=== PATIENT | male | born 1955 | race Caucasian/White ===

== ENCOUNTER 2016-08-03 14:06 | Inpatient (IN) | payer OTHER ==
[~2016-08-03] VITALS: Ht 172.7 cm; Wt 85.8 kg
[~2016-08-03 14:06] MED LIST: ALBU2.5V5 NEB; ASPI81TA9 PO; ATOR20TA58 PO; BUDE10.2 IH; CARV20CP PO; CITA20TA9 PO; FURO-68 PO; FURO-69 PO; MELO-150 PO; METF10002 PO; METF500T4 PO; METO2.5T PO; METO25TA4 PO; POTA20TA82 PO; PRED-220 PO; PROAIR HFA8.5 GM IH; TAMS0.4C97 PO; TEST200V3 IM; TIOT18CA IH; TRAZ50TA15 PO
[2016-08-03] MEDS ORDERED: FUROSEMIDE 40 MG/4 ML VIAL IVP ONE (15:15)
[2016-08-03 15:18] LABS: BASO # 0.1 x10^3/uL (0.0-0.2); BASO % 1 % (0-3); EOS % 3 % (0-3); HEMATOCRIT 49.9 % (39.0-53.0); HEMOGLOBIN 16.5 g/dL (13.0-17.5); LYMPH # 1.2 x10^3/uL (1.0-4.8); LYMPH % 13 % (24-48); MEAN CORPUSCULAR HEMOGLOBIN 32 pg (25-35); MEAN CORPUSCULAR HGB CONC 33 g/dL (31-37); MEAN CORPUSCULAR VOLUME 96 fL (79-100); MONO % 7 % (0-9); NEUT % 76 % (31-73); PLATELET COUNT 248 x10^3/uL (140-400); RED BLOOD COUNT 5.19 x10^6/uL (4.30-5.70); RED CELL DISTRIBUTION WIDTH 15.5 % (11.5-14.5); WHITE BLOOD COUNT 9.3 x10^3/uL (4.0-11.0)
--- NOTE | 2016-08-03 15:35 | EKG ---
[facility] [address] [place] [address] Test Date: 2016-08-03 Test Time: 15:22:08 Pat Name: SARAH HERNÁNDEZ Department: Room: Gender: M Tile Mason: : 1955 Requested By: JUAN MERRILL Order Number: [id number] Reading MD: Radha Pitts Measurements Intervals [place] Rate: 106 P: -26 OK: 116 QRS: -19 QRSD: 92 T: 161 QT: 364 QTc: 485 Interpretive Statements SINUS TACHYCARDIA LEFT ATRIAL ABNORMALITY LEFTWARD AXIS LOW LIMB LEAD VOLTAGE T ABNORMALITY IN HIGH LATERAL LEADS Electronically Signed On 08-07-2016 20:19:40 HIGH DENSITY [employer]AL[employer] OPERATOR by Radha Pitts
[2016-08-03 15:41] LABS: CALCIUM 9.5 mg/dL (8.5-10.1); CREATININE 1.4 mg/dL (0.7-1.3); GFR 51.4; POTASSIUM 4.5 mmol/L (3.5-5.1)
[2016-08-03 15:45] LABS: ALBUMIN 3.7 g/dL (3.4-5.0); DIRECT BILIRUBIN 0.2 mg/dL (0.0-0.2); TOTAL BILIRUBIN 0.9 mg/dL (0.2-1.0); TOTAL PROTEIN 7.1 g/dL (6.4-8.2)
--- NOTE | 2016-08-03 15:52 | RAD ---
Portable chest, 08/03/2016: History: Chest pain Comparison is made to a study from 04/07/2016. A left-sided transvenous pacemaker remains in place with 2 leads extending in the right heart. The heart is moderately enlarged. The pulmonary vascularity is within normal limits. No pulmonary infiltrates are seen. There is no evidence of pleural fluid. IMPRESSION: 1. Cardiomegaly. 2. No acute abnormality is detected.
[2016-08-03] MEDS ORDERED: MORPHINE SULFATE 2 MG/ML DISP.SYRIN. IV PRN (16:15)
[2016-08-03] MEDS ORDERED: ONDANSETRON PF 4 MG/2 ML VIAL. IV PRN (16:15)
[2016-08-03] MEDS ORDERED: ALBUTEROL SULFATE 2.5 MG/3 ML NEBU. NEB PRN (17:00)
[2016-08-03] MEDS ORDERED: IPRATRPIUM/ALBUTEROL 0.5/2.5MG 3 ML NEBU. NEB ONE (17:00)
--- NOTE | 2016-08-03 18:12 | PHYS DOC ---
Past Medical History Past Medical History: Bipolar, CHF, COPD, Diabetes-Type II, Hypertension Additional Past Medical Histor: emphysema Past Surgical History: Other Additional Past Surgical Histo: umbilical hernia, sinus surgery, hemorrhoid surgery, pacemaker/defib Alcohol Use: Heavy Additional Information: states, "I've been better for the last two weeks." Drug Use: None Adult General Chief Complaint Chief Complaint: LOWER EXTREMITY SWELLING HPI HPI 61-year-old male presenting to the emergency department with worsening shortness of breath bilateral lower extremity swelling over the past 3 weeks. He denies chest pain abdominal pain. He shortness of breath is worse with exertion, improved with rest. It is nonradiating. Moderate in intensity. 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 Review of systems is negative for chest pain abdominal pain nausea vomiting fevers or chills. All other review of systems is negative unless otherwise noted in history of present illness. Review of Systems Review of Systems SEE ABOVE. Current Medications Current Medications Current Medications Medications (Trade) Dose Ordered Sig/Syeda Start Time Stop Time Status Last Admin Dose Admin Furosemide (Lasix) 40 mg 1X ONCE 08/03/16 15:15 08/03/16 15:16 DC 08/03/16 15:17 40 MG Allergies Allergies Allergies Coded Allergies Type Severity Reaction Last Updated Verified No Known Drug Allergies 08/03/16 No Physical Exam Physical Exam GENERAL: no acute distress, non-toxic appearance. HENT: Normocephalic, atraumatic, bilateral external ears normal, oropharynx moist, no oral exudates, nose normal. Eyes: PERRLA, EOMI, conjunctiva normal, no discharge. Neck: Normal range of motion, no tenderness, supple, no stridor. Cardiovascular:Heart rate regular rhythm, no murmur Lungs & Thorax: Bilateral breath sounds clear to auscultation [] Abdomen: Bowel sounds normal, soft, no tenderness, no masses, no pulsatile masses. Skin: Warm, dry, no erythema, no rash. [] Back: No tenderness, no CVA tenderness. Extremities: No tenderness, no cyanosis, no clubbing, ROM intact, 3+ edema. Neurologic: Alert and oriented X 3, normal motor function, normal sensory function, no focal deficits noted. [] Psychologic: Affect normal, judgement normal, mood normal. [] Current Patient Data Vital Signs Vital Signs Date Time Temp Pulse Resp B/P Pulse Ox O2 Delivery O2 Flow Rate FiO2 08/03/16 15:04 102 20 123/78 97 Room Air 08/03/16 14:20 98.2 98.2 SEE ABOVE. Lab Values Laboratory Tests Test 08/03/16 14:30 White Blood Count 9.3x10^3/uL (4.0-11.0) Red Blood Count 5.19x10^6/uL (4.30-5.70) Hemoglobin 16.5g/dL (13.0-17.5) Hematocrit 49.9% (39.0-53.0) Mean Corpuscular Volume 96fL (79-100) Mean Corpuscular Hemoglobin 32pg (25-35) Mean Corpuscular Hemoglobin Concent 33g/dL (31-37) Red Cell Distribution Width 15.5% (11.5-14.5) H Platelet Count 248x10^3/uL (140-400) Neutrophils (%) (Auto) 76% (31-73) H Lymphocytes (%) (Auto) 13% (24-48) L Monocytes (%) (Auto) 7% (0-9) Eosinophils (%) (Auto) 3% (0-3) Basophils (%) (Auto) 1% (0-3) Neutrophils # (Auto) 7.1x10^3uL (1.8-7.7) Lymphocytes # (Auto) 1.2x10^3/uL (1.0-4.8) Monocytes # (Auto) 0.6x10^3/uL (0.0-1.1) Eosinophils # (Auto) 0.3x10^3/uL (0.0-0.7) Basophils # (Auto) 0.1x10^3/uL (0.0-0.2) Sodium Level 142mmol/L (136-145) Potassium Level 4.5mmol/L (3.5-5.1) Chloride Level 104mmol/L (98-107) Carbon Dioxide Level 25mmol/L (21-32) Anion Gap 13 (6-14) Blood Urea Nitrogen 25mg/dL (8-26) Creatinine 1.4mg/dL (0.7-1.3) H Estimated GFR (Cockcroft-Gault) 51.4 Glucose Level 129mg/dL (70-99) H Calcium Level 9.5mg/dL (8.5-10.1) Total Bilirubin 0.9mg/dL (0.2-1.0) Direct Bilirubin 0.2mg/dL (0.0-0.2) Aspartate Amino Transferase (AST) 29U/L (15-37) Alanine Aminotransferase (ALT) 27U/L (16-63) Alkaline Phosphatase 68U/L (46-116) Troponin I Quantitative 0.080ng/mL (0.000-0.055) ME-Lps-D-Type Natriuretic Peptide 3401pg/mL (0-124) H Total Protein 7.1g/dL (6.4-8.2) Albumin 3.7g/dL (3.4-5.0) Lipase 195U/L (73-393) Laboratory Tests 08/03/16 14:30 Laboratory Tests 08/03/16 14:30 EKG EKG [] EKG shows sinus rhythm with a tachycardic rate. [place] is leftward. Intervals are within normal limits. ST segments are congruent. Radiology/Procedures Radiology/Procedures [] Course & Med Decision Making Course & Med Decision Making Pertinent Labs and Imaging studies reviewed. (See chart for details) [] 61-year-old male presenting to the emergency department today with dyspnea and bilateral pedal edema. On examination the patient's vital signs showed he was afebrile. Mildly tachycardic. Physical exam showed edema with mild crackles in the bases the lungs. EKG unremarkable. Chest x-ray unremarkable. Blood work obtained which showed normal CBC. Chemistry panel shows mild increase in creatinine. ProBNP elevated along with an elevated troponin. Patient was given aspirin and Lasix in the emergency department and then admitted to our hospital for further evaluation workup and care. Cardiology consultation placed. Dragon Disclaimer Dragon Disclaimer This electronic medical record was generated, in whole or in part, using a voice recognition dictation system. Departure Departure Impression: Primary Impression: CHF (congestive heart failure) Additional Impression: Edema Disposition: ADMITTED INPATIENT Admitting Physician: Lien Palacios Condition: STABLE Referrals: LIEN PALACIOS MD (PCP) Problem Qualifiers JUAN MERRILL MD Aug 03, 2016 18:12
[2016-08-03 18:38] VITALS: BP 72/56
[2016-08-03 19:00] VITALS: BP 96/67
--- NOTE | 2016-08-03 19:35 | ACF ---
Admission Forms Criteria HEART FAILURE: COMMON COMPLICATIONS Clinical Indications for Inpatient Care (Place 'X' for any and all applicable criteria): Ongoing inpatient care may be indicated for heart failure with ANY ONE of the following (1)(2)(3)(4)(5): [ ]I. Ongoing need for care for primary condition requiring frequent therapy adjustments because of changes in cardiac function (eg, drug dosage changes for drugs that are renally metabolized) [ ]II. New-onset heart failure [ ]III. Heart failure with decreased urine output not responsive to attempts to optimize volume status [ ]IV. Acute cardiac ischemia causing or associated with failure [X]V. Complications of heart failure, including ANY ONE of the following: [ ]a) Pericardial effusion [ ]b) Symptomatic pleural effusion [ ]c) O2 saturation <90% or PO2 < 60 mm Hg (8.0 kPa) on room air or require baseline supplemental O2 [ ]d) Tachypnea [X]e) Dyspnea [ ]f) Syncope [ ]g) Change in mental status [ ]h) Acute renal insufficiency that is severe (reduction of more than 50% in estimated glomerular filtration rate from baseline) or progressive reduction of more than 25% in estimated glomerular filtration rate from baseline, with creatinine continuing to rise) [ ]i) Hemodynamic instability [ ]j) Anasarca [ ]k) Clinically significant metabolic abnormalities due to heart failure (eg, new-onset metabolic acidosis) Extended stay beyond goal length of stay for primary condition may be needed until ALL of the following are present(1)(3): [ ]a) Stable and effective diuretic regimen established (or patient on stable dialysis regimen if in chronic renal failure) [ ]b) Breathing comfortably at rest [ ]c) Saturation of arterial oxygen greater than 90% or at acceptable baseline [ ]d) Pulmonary edema absent or improved [ ]e) Hemodynamic stability [ ]f) Volume status acceptable on oral medication [ ]g) Peripheral or sacral edema absent or improved [ ]h) Renal function stable and manageable at a lower level of care [ ]i) Complications (eg, pleural effusion) resolved or manageable at a lower level of care [ ]j) Patient or caregiver has received written discharge instructions or educational material addressing activity level, diet, discharge medications, follow-up appointment, weight monitoring, and what to do if symptoms worsen The original [facility] content created by [employer] has been revised. The portions of the content which have been revised are identified through the use of italic text or in bold, and [facility] has neither reviewed nor approved the modified material.All other unmodified content is copyright [facility]. Please see references footnoted in the original [facility] edition 2016 Admission Criteria Met?: Yes DARCIE PYLE Aug 03, 2016 19:35
[2016-08-03 23:00] VITALS: BP 105/71
[2016-08-04 03:00] VITALS: BP 105/69
[2016-08-04 04:13] LABS: BASO # 0.1 x10^3/uL (0.0-0.2); BASO % 1 % (0-3); EOS % 5 % (0-3); HEMATOCRIT 47.5 % (39.0-53.0); HEMOGLOBIN 15.1 g/dL (13.0-17.5); LYMPH # 1.4 x10^3/uL (1.0-4.8); LYMPH % 18 % (24-48); MEAN CORPUSCULAR HEMOGLOBIN 32 pg (25-35); MEAN CORPUSCULAR HGB CONC 32 g/dL (31-37); MEAN CORPUSCULAR VOLUME 99 fL (79-100); MONO % 10 % (0-9); NEUT % 66 % (31-73); PLATELET COUNT 219 x10^3/uL (140-400); RED BLOOD COUNT 4.79 x10^6/uL (4.30-5.70); RED CELL DISTRIBUTION WIDTH 16.2 % (11.5-14.5); WHITE BLOOD COUNT 7.9 x10^3/uL (4.0-11.0)
[2016-08-04 04:34] LABS: CALCIUM 9.4 mg/dL (8.5-10.1); CREATININE 1.4 mg/dL (0.7-1.3); GFR 51.4; POTASSIUM 4.4 mmol/L (3.5-5.1)
[2016-08-04 07:00] VITALS: BP 102/74
[2016-08-04] MEDS ORDERED: METOPROLOL TART IMMED RELEASE 25 MG TABLET PO SCH (09:15)
[2016-08-04] MEDS ORDERED: FUROSEMIDE 40 MG TABLET PO SCH (09:15)
--- NOTE | 2016-08-04 09:15 | PDOC ---
PROGRESS NOTES Subjective Subjective Patient reports swelling in his legs seems a little better than yesterday. Denies any CP or SOA. Objective Objective Vital Signs Date Time Temp Pulse Resp B/P Pulse Ox O2 Delivery O2 Flow Rate FiO2 08/04/16 07:00 97.6 105 20 102/74 96 Room Air 97.6 08/04/16 02:30 2.0 Intake and Output 08/04/16 07:00 Intake Total 600 ml Output Total 2975 ml Balance -2375 ml Intake Oral 600 ml Output Urine Total 2975 ml # Voids 3 Physical Exam Abdomen: Normal bowel sounds, Soft, No tenderness Heart: Regular rate Extremities: Other (2+ pitting edema bilateral LE's, no erythema) General: Alert, Oriented X3, No acute distress Lungs: Other (BS moderately decreased throughout, no wheezes, no cough during exam) Assessment Assessment Problems Medical Problems: (1) CHF (congestive heart failure) Status: Acute (2) Edema Status: Acute Plan Plan of Care 1. AE CHF with LE edema - some diuresis on chart since admission. Cardiology consult pending. Continue Lasix daily, wear SANCHEZ hose and elevate legs. 2. COPD - appears stable. CXR without infiltrate. Not hypoxic on RA. Continue inhalers. Patient still smoking, declines nicotine patch. 3. DM2 - continue Metformin. 4. HTN - continue home meds. Comment Review of Relevant I have reviewed the following items jung (where applicable) has been applied. Labs Laboratory Tests Test 08/03/16 14:30 08/03/16 21:55 08/04/16 03:20 White Blood Count 9.3x10^3/uL (4.0-11.0) 7.9x10^3/uL (4.0-11.0) Red Blood Count 5.19x10^6/uL (4.30-5.70) 4.79x10^6/uL (4.30-5.70) Hemoglobin 16.5g/dL (13.0-17.5) 15.1g/dL (13.0-17.5) Hematocrit 49.9% (39.0-53.0) 47.5% (39.0-53.0) Mean Corpuscular Volume 96fL (79-100) 99fL (79-100) Mean Corpuscular Hemoglobin 32pg (25-35) 32pg (25-35) Mean Corpuscular Hemoglobin Concent 33g/dL (31-37) 32g/dL (31-37) Red Cell Distribution Width 15.5% (11.5-14.5) 16.2% (11.5-14.5) Platelet Count 248x10^3/uL (140-400) 219x10^3/uL (140-400) Neutrophils (%) (Auto) 76% (31-73) 66% (31-73) Lymphocytes (%) (Auto) 13% (24-48) 18% (24-48) Monocytes (%) (Auto) 7% (0-9) 10% (0-9) Eosinophils (%) (Auto) 3% (0-3) 5% (0-3) Basophils (%) (Auto) 1% (0-3) 1% (0-3) Neutrophils # (Auto) 7.1x10^3uL (1.8-7.7) 5.2x10^3uL (1.8-7.7) Lymphocytes # (Auto) 1.2x10^3/uL (1.0-4.8) 1.4x10^3/uL (1.0-4.8) Monocytes # (Auto) 0.6x10^3/uL (0.0-1.1) 0.8x10^3/uL (0.0-1.1) Eosinophils # (Auto) 0.3x10^3/uL (0.0-0.7) 0.4x10^3/uL (0.0-0.7) Basophils # (Auto) 0.1x10^3/uL (0.0-0.2) 0.1x10^3/uL (0.0-0.2) Sodium Level 142mmol/L (136-145) 146mmol/L (136-145) Potassium Level 4.5mmol/L (3.5-5.1) 4.4mmol/L (3.5-5.1) Chloride Level 104mmol/L (98-107) 108mmol/L (98-107) Carbon Dioxide Level 25mmol/L (21-32) 28mmol/L (21-32) Anion Gap 13 (6-14) 10 (6-14) Blood Urea Nitrogen 25mg/dL (8-26) 27mg/dL (8-26) Creatinine 1.4mg/dL (0.7-1.3) 1.4mg/dL (0.7-1.3) Estimated GFR (Cockcroft-Gault) 51.4 51.4 Glucose Level 129mg/dL (70-99) 103mg/dL (70-99) Calcium Level 9.5mg/dL (8.5-10.1) 9.4mg/dL (8.5-10.1) Total Bilirubin 0.9mg/dL (0.2-1.0) Direct Bilirubin 0.2mg/dL (0.0-0.2) Aspartate Amino Transf (AST/SGOT) 29U/L (15-37) Alanine Aminotransferase (ALT/SGPT) 27U/L (16-63) Alkaline Phosphatase 68U/L (46-116) Troponin I Quantitative 0.080ng/mL (0.000-0.055) 0.074ng/mL (0.000-0.055) 0.082ng/mL (0.000-0.055) MN-Gbs-D-Type Natriuretic Peptide 3401pg/mL (0-124) Total Protein 7.1g/dL (6.4-8.2) Albumin 3.7g/dL (3.4-5.0) Lipase 195U/L (73-393) Laboratory Tests Test 08/03/16 14:30 08/03/16 21:55 08/04/16 03:20 White Blood Count 9.3x10^3/uL (4.0-11.0) 7.9x10^3/uL (4.0-11.0) Red Blood Count 5.19x10^6/uL (4.30-5.70) 4.79x10^6/uL (4.30-5.70) Hemoglobin 16.5g/dL (13.0-17.5) 15.1g/dL (13.0-17.5) Hematocrit 49.9% (39.0-53.0) 47.5% (39.0-53.0) Mean Corpuscular Volume 96fL (79-100) 99fL (79-100) Mean Corpuscular Hemoglobin 32pg (25-35) 32pg (25-35) Mean Corpuscular Hemoglobin Concent 33g/dL (31-37) 32g/dL (31-37) Red Cell Distribution Width 15.5% (11.5-14.5) 16.2% (11.5-14.5) Platelet Count 248x10^3/uL (140-400) 219x10^3/uL (140-400) Neutrophils (%) (Auto) 76% (31-73) 66% (31-73) Lymphocytes (%) (Auto) 13% (24-48) 18% (24-48) Monocytes (%) (Auto) 7% (0-9) 10% (0-9) Eosinophils (%) (Auto) 3% (0-3) 5% (0-3) Basophils (%) (Auto) 1% (0-3) 1% (0-3) Neutrophils # (Auto) 7.1x10^3uL (1.8-7.7) 5.2x10^3uL (1.8-7.7) Lymphocytes # (Auto) 1.2x10^3/uL (1.0-4.8) 1.4x10^3/uL (1.0-4.8) Monocytes # (Auto) 0.6x10^3/uL (0.0-1.1) 0.8x10^3/uL (0.0-1.1) Eosinophils # (Auto) 0.3x10^3/uL (0.0-0.7) 0.4x10^3/uL (0.0-0.7) Basophils # (Auto) 0.1x10^3/uL (0.0-0.2) 0.1x10^3/uL (0.0-0.2) Sodium Level 142mmol/L (136-145) 146mmol/L (136-145) Potassium Level 4.5mmol/L (3.5-5.1) 4.4mmol/L (3.5-5.1) Chloride Level 104mmol/L (98-107) 108mmol/L (98-107) Carbon Dioxide Level 25mmol/L (21-32) 28mmol/L (21-32) Anion Gap 13 (6-14) 10 (6-14) Blood Urea Nitrogen 25mg/dL (8-26) 27mg/dL (8-26) Creatinine 1.4mg/dL (0.7-1.3) 1.4mg/dL (0.7-1.3) Estimated GFR (Cockcroft-Gault) 51.4 51.4 Glucose Level 129mg/dL (70-99) 103mg/dL (70-99) Calcium Level 9.5mg/dL (8.5-10.1) 9.4mg/dL (8.5-10.1) Total Bilirubin 0.9mg/dL (0.2-1.0) Direct Bilirubin 0.2mg/dL (0.0-0.2) Aspartate Amino Transf (AST/SGOT) 29U/L (15-37) Alanine Aminotransferase (ALT/SGPT) 27U/L (16-63) Alkaline Phosphatase 68U/L (46-116) Troponin I Quantitative 0.080ng/mL (0.000-0.055) 0.074ng/mL (0.000-0.055) 0.082ng/mL (0.000-0.055) KC-Gon-I-Type Natriuretic Peptide 3401pg/mL (0-124) Total Protein 7.1g/dL (6.4-8.2) Albumin 3.7g/dL (3.4-5.0) Lipase 195U/L (73-393) Medications Current Medications Furosemide (Lasix) 40 mg 1X ONCE IVP Last administered on 08/03/16 15:17; Start 08/03/16 at 15:15; Stop 08/03/16 at 15:16; Status DC Ondansetron HCl (Zofran) 4 mg PRN Q8HRS PRN IV NAUSEA/VOMITING; Start 08/03/16 at 16:15; Stop 08/04/16 at 16:14 Morphine Sulfate 2 mg PRN Q2HR PRN IV PAIN Last administered on 08/04/16 02:01 ; Start 08/03/16 at 16:15; Stop 08/04/16 at 16:14 Albuterol/ Ipratropium (Duoneb) 3 ml 1X ONCE NEB Last administered on 17:00; Start 08/03/16 at 17:00; Stop 08/03/16 at 17:01; Status DC Albuterol Sulfate (Ventolin Neb Soln) 2.5 mg PRN QID PRN NEB SHORTNESS OF BREATH Last administered on 08/03/16 19:45; Start 08/03/16 at 17:00 Active Scripts Active Flomax (Tamsulosin Hcl) 0.4 Mg Cap.er.24h 1 Cap PO HS Prednisone 10 Mg Tablet 10 Mg PO UD 4 for 2 days then 3 for 2 days then 2 for 2 days then 1 for 2 days,OFF Metolazone 2.5 Mg Tablet 2.5 Mg PO DAILY Potassium Chloride 20 Meq Tablet.er 10 Meq PO DAILY Reported Metoprolol Tartrate 25 Mg Tablet 1 Tab PO BID Proair Hfa Inhaler (Albuterol Sulfate) 8.5 Gm Hfa.aer.ad 2 Puff IH PRN Q2HR PRN Albuterol Sulfate Neb Soln (Albuterol Sulfate) 2.5 Mg/3 Ml Vial.neb 1 Vial NEB PRN Q4HRS Symbicort 160-4.5 Mcg Inhaler (Budesonide/Formoterol Fumarate) 10.2 Gm Hfa.aer.ad 2 Puff IH BID Atorvastatin Calcium 20 Mg Tablet 20 Mg PO DAILY Testosterone Cypionate 200 Mg/1 Ml Vial 200 Mg IM Q2WKS Metformin Hcl 500 Mg Tablet 500 Mg PO BIDWMEALS Spiriva (Tiotropium [place]) 18 Mcg Cap.w.dev 2 Inh IH DAILY05 Aspirin Ec (Aspirin) 81 Mg Tablet.dr 81 Mg PO DAILY Lasix (Furosemide) 40 Mg Tablet Unknown Dose PO DAILY Celexa (Citalopram Hydrobromide) 20 Mg Tablet Unknown Dose PO DAILY Trazodone Hcl 50 Mg Tablet Unknown Dose PO DAILY Vitals/I & O Vital Sign - Last 24 Hours 08/03/16 08/03/16 08/03/16 08/03/16 14:20 15:04 16:04 17:04 Temp 98.2 98.2 Pulse 115 102 108 106 Resp 22 20 20 20 B/P 129/79 123/78 122/82 95/54 Pulse Ox 97 97 96 94 O2 Delivery Room Air Room Air Room Air Room Air 08/03/16 08/03/16 08/03/16 08/03/16 17:14 17:50 18:38 19:00 Temp 98.3 97.5 98.3 97.5 Pulse 104 109 106 Resp 20 B/P 119/73 72/56 96/67 Pulse Ox 95 96 94 96 O2 Delivery Room Air Room Air Room Air Room Air 08/03/16 08/03/16 08/03/16 08/04/16 19:44 21:05 23:00 02:01 Temp 97.5 97.5 Pulse 109 Resp 20 B/P 105/71 Pulse Ox 96 92 92 O2 Delivery Room Air Nasal Cannula Nasal Cannula Nasal Cannula O2 Flow Rate 2.0 2.0 2.0 08/04/16 08/04/16 08/04/16 02:30 03:00 07:00 Temp 97.5 97.6 97.5 97.6 Pulse 107 105 Resp 20 B/P 105/69 102/74 Pulse Ox 92 93 96 O2 Delivery Nasal Cannula Room Air Room Air O2 Flow Rate 2.0 Intake and Output 08/03/16 08/03/16 08/04/16 15:00 23:00 07:00 Intake Total 600 ml Output Total 2025 ml 950 ml Balance -1425 ml -950 ml MOOKIE SAGE MD Aug 04, 2016 09:15
--- NOTE | 2016-08-04 09:18 | PDOC2 ---
CARDIAC CONSULT DATE OF CONSULT Date of Consult DATE: 08/04/16 TIME: 09:12 REASON FOR CONSULT Reason for Consult: elevated BNP, edema, SOA REFERRING PHYSICIAN Referring Physician: Dr. Carmelo Malave SOURCE Source: Chart review, Patient HISTORY OF PRESENT ILLNESS HISTORY OF PRESENT ILLNESS 61 year old male with progressive dyspnea and LE edema over the last 3 weeks. He has possibly gained 10 - 11 # recently. Reports he cut out all "salt" and is "only eating rabbit food." Review of office notes indicate furosemide was increased to 80 mg daily 06/2016, however, it recently determined on 07/29/2016 he had remained on a 60 mg dose. He was advised at that time to increase to 80 mg daily. Denies a change in symptoms with increase in furosemide. NT-proBNP was 3401 with a CR of 1.4 in the ER. No acute changes in EKG, though poor baseline. Was treated with IV furosemide 40 mg X 1 in ER. Reason for Visit: acute on chronic systolic CHF PAST MEDICAL HISTORY Cardiovascular: CAD (mild non-obstructive disease on cath 04/2014), CHF ( chronic systolic), HTN, Hyperlipidemia, Other (non-ischemic cardiomyopathy) Pulmonary: COPD (with chronic oxygen use), Other (COMFORT with CPAP) Psych: Bipolar Musculoskeletal: Osteoarthritis ENT: Allergic Rhinitis Renal/: Chronic renal insuff Endocrine: Diabetes (type II) Dermatology: Melanoma PAST SURGICAL HISTORY Past Surgical History: Pacemaker ([employer] ICD; excision of melanoma), Hernia Repair (umbilical ) FAMILY HISTORY Family History: Family History Unknown SOCIAL HISTORY Smoke: <1 pack per day (3-4 cigarettes/day; previously 2 ppd ) ALCOHOL: heavy (states he quit 2 weeks ago) Lives: with Family CURRENT MEDICATIONS CURRENT MEDICATIONS Current Medications Medications (Trade) Dose Ordered Sig/Syeda Route PRN Reason Start Time Stop Time Status Last Admin Dose Admin Furosemide (Lasix) 40 mg 1X ONCE IVP 08/03/16 15:15 08/03/16 15:16 DC 08/03/16 15:17 Morphine Sulfate 2 mg PRN Q2HR PRN IV PAIN 08/03/16 16:15 08/04/16 16:14 08/04/16 02:01 Albuterol/ Ipratropium (Duoneb) 3 ml 1X ONCE NEB 08/03/16 17:00 08/03/16 17:01 DC 08/03/16 17:00 Albuterol Sulfate (Ventolin Neb Soln) 2.5 mg PRN QID PRN NEB SHORTNESS OF BREATH 08/03/16 17:00 08/03/16 19:45 ALLERGIES ALLERGIES: Coded Allergies: No Known Drug Allergies (Unverified , 08/03/16) ROS General: YES: Fatigue, Malaise PSYCHOLOGICAL ROS: No: Anxiety, Behavioral Disorder, Concentration difficultie , Decreased libido, Depression, Disorientation, Hallucinations, Hostility, Irritablity, Memory difficulties, Mood Swings, Obsessive thoughts, Other, Physical abuse, Sexual abuse, Sleep disturbances, Suicidal ideation Eyes: No Blurry vision, No Decreased vision, No Double vision, No Dry eyes, No Excessive tearing, No Eye Pain, No Itchy Eyes, No Loss of vision, No Other, No Photophobia, No Scotomata, No Uses contacts, No Uses glasses HEENT: No: Epistaxis, Heacaches, Hearing change, Nasal congestion, Nasal discharge, Oral lesions, Other, Sinus pain, Sneezing, Snoring, Sore Throat, Tinnitus, Vertigo, Visual Changes, Vocal changes ALLERGY AND IMMUNOLOGY: No: Hives, Insect Bite Sensitivity, Itchy/Watery Eyes, Nasal Congestion, Other, Post Nasal Drip, Seasonal Allergies Hematological and Lymphatic: No: Bleeding Problems, Blood Clots, Blood Transfusions, Brusing, Night Sweats, Other, Pallor, Swollen Lymph Nodes ENDOCRINE: No: Breast Changes, Galactorrhea, Hair Pattern Changes, Hot Flashes , Malaise/lethargy, Mood Swings, Other, Palpitations, Polydipsia/polyuria, Skin Changes, Temperature Intolerance, Unexpected Weight Changes Respiratory: YES: Cough, SOB with excertion, Shortness of breath Cardiovascular: yes Edema, yes Orthopnea, yes Paroxysmal Noc. Dyspnea, No Chest Pain, No Lt Headedness, No Other, No Palpitations Gastrointestinal: No Abdominal Pain, No Constipation, No Diarrhea, No Hematochezia, No Melena, No Nausea, No Other, No Vomiting Genitourinary: No Discharge, No Dysuria, No Flank Pain, No Frequency, No Hematuria, No Incontinence, No Other, No Pain, No Retention, No Urgency Musculoskeletal: Yes Joint Pain (left hip) Neurological: No Behavorial Changes, No Bowel/Bladder ControlChng, No Confusion , No Dizziness, No Gait Disturbance, No Headaches, No Impaired Coord/balance, No Memory Loss, No Numbness/Tingling, No Other, No Seizures, No Speech Problems , No Tremors, No Visual Changes, No Weakness Skin: No Acne, No Dry Skin, No Eczema, No Hair Changes, No Lumps, No Mole Changes, No Mottling, No Nail Changes, No Other, No Pruritus, No Rash, No Skin Lesion Changes PHYSICAL EXAM General: Alert, Oriented X3, No acute distress HEENT: Atraumatic, PERRLA Lungs: Other (posterior crackles about [address]) Heart: Regular rate, Normal S1, Normal S2, Other (left pectoral ICD; tele SR with NSVT of 5 - 6 beats) Abdomen: Normal bowel sounds, Soft Extremities: Other (2-3+ bilateral lower extremity edema) Skin: No rashes Neuro: Normal speech Psych/Mental Status: Mental status NL, Mood NL MUSCULOSKELETAL: No deformity VITALS VITALS Vital Signs Date Time Temp Pulse Resp B/P Pulse Ox O2 Delivery O2 Flow Rate FiO2 08/04/16 07:00 97.6 105 20 102/74 96 Room Air 97.6 08/04/16 02:30 2.0 LABS Lab: Laboratory Tests Test 08/03/16 14:30 08/03/16 21:55 08/04/16 03:20 White Blood Count 9.3x10^3/uL (4.0-11.0) 7.9x10^3/uL (4.0-11.0) Red Blood Count 5.19x10^6/uL (4.30-5.70) 4.79x10^6/uL (4.30-5.70) Hemoglobin 16.5g/dL (13.0-17.5) 15.1g/dL (13.0-17.5) Hematocrit 49.9% (39.0-53.0) 47.5% (39.0-53.0) Mean Corpuscular Volume 96fL (79-100) 99fL (79-100) Mean Corpuscular Hemoglobin 32pg (25-35) 32pg (25-35) Mean Corpuscular Hemoglobin Concent 33g/dL (31-37) 32g/dL (31-37) Red Cell Distribution Width 15.5% (11.5-14.5) 16.2% (11.5-14.5) Platelet Count 248x10^3/uL (140-400) 219x10^3/uL (140-400) Neutrophils (%) (Auto) 76% (31-73) 66% (31-73) Lymphocytes (%) (Auto) 13% (24-48) 18% (24-48) Monocytes (%) (Auto) 7% (0-9) 10% (0-9) Eosinophils (%) (Auto) 3% (0-3) 5% (0-3) Basophils (%) (Auto) 1% (0-3) 1% (0-3) Neutrophils # (Auto) 7.1x10^3uL (1.8-7.7) 5.2x10^3uL (1.8-7.7) Lymphocytes # (Auto) 1.2x10^3/uL (1.0-4.8) 1.4x10^3/uL (1.0-4.8) Monocytes # (Auto) 0.6x10^3/uL (0.0-1.1) 0.8x10^3/uL (0.0-1.1) Eosinophils # (Auto) 0.3x10^3/uL (0.0-0.7) 0.4x10^3/uL (0.0-0.7) Basophils # (Auto) 0.1x10^3/uL (0.0-0.2) 0.1x10^3/uL (0.0-0.2) Sodium Level 142mmol/L (136-145) 146mmol/L (136-145) Potassium Level 4.5mmol/L (3.5-5.1) 4.4mmol/L (3.5-5.1) Chloride Level 104mmol/L (98-107) 108mmol/L (98-107) Carbon Dioxide Level 25mmol/L (21-32) 28mmol/L (21-32) Anion Gap 13 (6-14) 10 (6-14) Blood Urea Nitrogen 25mg/dL (8-26) 27mg/dL (8-26) Creatinine 1.4mg/dL (0.7-1.3) 1.4mg/dL (0.7-1.3) Estimated GFR (Cockcroft-Gault) 51.4 51.4 Glucose Level 129mg/dL (70-99) 103mg/dL (70-99) Calcium Level 9.5mg/dL (8.5-10.1) 9.4mg/dL (8.5-10.1) Total Bilirubin 0.9mg/dL (0.2-1.0) Direct Bilirubin 0.2mg/dL (0.0-0.2) Aspartate Amino Transf (AST/SGOT) 29U/L (15-37) Alanine Aminotransferase (ALT/SGPT) 27U/L (16-63) Alkaline Phosphatase 68U/L (46-116) Troponin I Quantitative 0.080ng/mL (0.000-0.055) 0.074ng/mL (0.000-0.055) 0.082ng/mL (0.000-0.055) IO-Pky-B-Type Natriuretic Peptide 3401pg/mL (0-124) Total Protein 7.1g/dL (6.4-8.2) Albumin 3.7g/dL (3.4-5.0) Lipase 195U/L (73-393) IMAGES IMAGES CXR: Comparison is made to a study from 04/07/2016. A left-sided transvenous pacemaker remains in place with 2 leads extending in the right heart. The heart is moderately enlarged. The pulmonary vascularity is within normal limits. No pulmonary infiltrates are seen. There is no evidence of pleural fluid. IMPRESSION: 1. Cardiomegaly. 2. No acute abnormality is detected. EKG EKG poor baseline, SR/ST; no acute changes ECHOCARDIOGRAM ECHOCARDIOGRAM 03/2016: TTE: Left ventricle systolic function is severely impaired. The Ejection Fraction is estimated at 20-25%. Pacer wire noted in right atrium and right ventricle. Mild to moderate aortic regurgitation. Mild to moderate mitral regurgitation. Mild tricuspid regurgitation. The PA pressure was estimated at 38 mmHg. There is no evidence of significant pericardial effusion. STRESS TEST STRESS TEST 04/13/2016: Regadenoson failed to complete study; could not tolerate lying flat under camera and became dyspneic HEART CATH HEART CATH 04/23/2014: Mild coronary artery disease. Severely decreased left ventricular systolic function. Mild to moderate aortic insufficiency. ASSESSMENT/PLAN ASSESSMENT/PLAN 1. acute on chronic systolic HF LV function depressed at 20-25% on echo 03/2016 suspect related to not increasing furosemide dose and chronic steroid dosing will treat 1- 2 days with IV Bumex, then can likely convert back to furosemide continue metolazone and monitor BUN/Cr 2. non-ischemic cardiomyopathy [employer] ICD for prevention of SCD interrogated 06/2016 with stable impedances and adequate battery remaining 3. NSVT K WNL check Mg continue metoprolol succinate 25 mg daily for suppression has ICD to treat if indicated likely related to depressed LV function 4. CAD, mild non-obstructive did not complete MPI ordered 04/2016 no clear anginal symptoms continue medical management 5. HTN continue medications 6. HLD no evidence of recent FLP in office chart - last completed 2014 check FLP in a.m 7. CKD monitor BUN/Cr with use of Bumex 8. polysubstance abuse recent cessation of ETOH ? tobacco use Problems: FELIPA RODAS APRN Aug 04, 2016 09:18
[2016-08-04] MEDS ORDERED: ACETAMINOPHEN 500 MG TABLET PO PRN (09:30)
[2016-08-04] MEDS: BUDESONIDE 0.5 MG/2 ML NEBU NEB SCH ×2 (10:00→11:58)
--- NOTE | 2016-08-04 10:37 | HP ---
ADMIT DATE: 08/03/2016 CHIEF COMPLAINT: Lower extremity edema. HISTORY OF PRESENT ILLNESS: The patient is a 61-year-old male with a history of systolic and diastolic congestive heart failure who presented to the Emergency Room with the above complaint. He reported the onset of increased swelling in his legs about one week prior to admission. He states he has been wearing his SANCHEZ hose every day at home, but the swelling seems to be getting worse and he could no longer get the hose on. He had apparently called Dr. Matos's office and been told to increase his Lasix. He had tried this, but did not feel that he was having an increased urine output from it. The swelling worsened and he came to the Emergency Room. Initial evaluation there showed a mildly elevated troponin. EKG was without acute ischemic change. Chest x-ray did not show increased fluid. The patient was given an extra dose of Lasix and admitted for further treatment. PAST MEDICAL HISTORY: Congestive heart failure with severe cardiomyopathy, ejection fraction of 20-25%, coronary artery disease, COPD with ongoing tobaccoism, hypertension, diabetes mellitus type 2, bipolar mood disorder, osteoarthritis, BPH, hyperlipidemia. PAST SURGICAL HISTORY: Umbilical hernia repair, sinus surgery, hemorrhoid surgery, pacemaker placement and melanoma excision in 2013. ALLERGIES: The patient has no known drug allergies. HOME MEDICATIONS: This list may not be accurate as the patient does not know the name of his medications, albuterol p.r.n.; aspirin 81 mg daily; atorvastatin 20 mg daily; Symbicort 160/4.5 two puffs b.i.d.; citalopram 20 mg daily; Lasix 40 mg, the patient states he takes one and one-half tablets daily normally; metformin 500 mg b.i.d.; metolazone 2.5 mg daily, the patient is not sure he is taking this; metoprolol tartrate 25 mg b.i.d.; potassium 10 mEq daily; Flomax 0.4 mg daily; Spiriva 2 puffs daily; trazodone, unknown dose. FAMILY HISTORY: Noncontributory. SOCIAL HISTORY: The patient is single, but has a girlfriend who is active in his care. He has a long smoking history. He does continue to smoke, but states he smokes much less than he used to and sometimes can go several days without a cigarette. He does drink alcohol, but denies drinking to excess. He is disabled due to his cardiac condition. REVIEW OF SYSTEMS: The patient denies fever or chills. He denies chest pain or palpitations. He has had several upper respiratory infections recently with cough and increased congestion, but the symptoms have improved and he feels that his breathing is normal for him at this time. He denies abdominal pain, nausea or vomiting. He is trying to watch the salt in his diet and does not think he has had an unusual amount of salty food recently. PHYSICAL EXAMINATION: GENERAL: The patient is alert and oriented x 3, sitting up at the bedside, in no acute distress. HEENT: PERRL, EOMI, sclerae clear. Oropharynx: Mucous membranes moist. NECK: Supple, without lymphadenopathy. CHEST: Breath sounds are moderately decreased throughout, but otherwise clear to auscultation. No wheezes heard. No cough during the exam. CARDIOVASCULAR: Regular rhythm without murmur. ABDOMEN: Soft, nontender, normoactive bowel sounds are present. EXTREMITIES: 2+ pitting edema in the bilateral lower extremities without erythema. ASSESSMENT AND PLAN: 1. Acute exacerbation of systolic and diastolic congestive heart failure with lower extremity edema. The patient received an extra dose of Lasix yesterday and had some good diuresis with it. He feels the swelling in his legs may be a little bit better than at admission. A consult with Cardiology is pending. We will continue Lasix daily. The patient is advised to wear SANCHEZ hose and keep his legs elevated while he is here. 2. Chronic obstructive pulmonary disease. This appears stable. Chest x-ray was without acute infiltrate. The patient is not hypoxic on room air at this time. We will continue nebulizers and inhalers. He knows that he is advised smoking cessation. He declines a nicotine patch while he is here. 3. Diabetes mellitus type 2. Continue metformin. 4. Hypertension. Continue home medications. MOOKIE SAGE MD DR: SHIELA/elder JOB#: [id number] / [id number] JEFFERY
[2016-08-04] MEDS: BUMETANIDE 1 MG/4 ML VIAL. IV SCH ×2 (10:49→17:27)
[2016-08-04] MEDS: METFORMIN 500 MG TABLET. PO SCH ×2 (10:50→17:27)
[2016-08-04] MEDS: POTASSIUM CHLORIDE 10 MEQ TABLET.ER. PO SCH (10:50)
[2016-08-04] MEDS: METOLAZONE 2.5 MG TABLET PO SCH (10:50)
[2016-08-04] MEDS: ASPIRIN ENTERIC COATED 81 MG TABLET.DR. PO SCH (10:50)
[2016-08-04] MEDS: CITALOPRAM 20 MG TABLET. PO SCH (10:51)
[2016-08-04] MEDS: METOPROLOL SUCC 24HR ER 25 MG TAB.ER.24H. PO SCH (10:51)
[2016-08-04 11:00] VITALS: BP 145/86
[2016-08-04] MEDS: IPRATRPIUM/ALBUTEROL 0.5/2.5MG 3 ML NEBU. NEB SCH ×2 (11:58→18:00)
[2016-08-04 15:00] VITALS: BP 103/75
[2016-08-04 19:00] VITALS: BP 140/72
[2016-08-04] MEDS: TAMSULOSIN 0.4 MG CAP.ER.24H. PO SCH (20:45)
[2016-08-04] MEDS ORDERED: NON FORMULARY ITEM (Budesonide/Formoterol Fumarate (Symbicort 160-4.5 Mcg Inhaler) 2 PUFF) IH SCH (21:00)
[2016-08-04] MEDS ORDERED: ATORVASTATIN CALCIUM 20 MG TABLET PO SCH (21:00)
[2016-08-04] MEDS: HYDROCODONE/APAP 5/325MG TABLET. PO PRN (22:17)
[2016-08-05 03:00] VITALS: BP 140/75
[2016-08-05] MEDS ORDERED: NON FORMULARY ITEM (Tiotropium Bromide (Spiriva) 2 INH) IH SCH (05:00)
[2016-08-05 06:55] VITALS: BP 112/82
[2016-08-05 07:19] LABS: CALCIUM 9.8 mg/dL (8.5-10.1); CREATININE 1.4 mg/dL (0.7-1.3); GFR 51.4; POTASSIUM 4.6 mmol/L (3.5-5.1)
[2016-08-05 07:26] LABS: CHOLESTEROL/HDL RATIO 1.7
[2016-08-05] MEDS: IPRATRPIUM/ALBUTEROL 0.5/2.5MG 3 ML NEBU. NEB SCH ×6 (07:30→19:26)
[2016-08-05] MEDS: BUDESONIDE 0.5 MG/2 ML NEBU NEB SCH ×2 (08:00→19:25)
--- NOTE | 2016-08-05 08:48 | PDOC ---
CARDIO Progress Notes Date and Time Date of Service 08/05/2016 Time of Evaluation 0840 Subjective Subjective: No Chest Pain, No Palpitations, No Dizziness Vitals Vitals Vital Signs Date Time Temp Pulse Resp B/P Pulse Ox O2 Delivery O2 Flow Rate FiO2 08/05/16 06:55 97.5 102 18 112/82 95 Room Air 97.5 Weight Weight [ ] Input and Output Intake and Output Intake and Output 08/05/16 07:00 Intake Total 1480 ml Output Total 1650 ml Balance -170 ml Intake Oral 1480 ml Output Urine Total 1650 ml Laboratory Labs Laboratory Tests Test 08/04/16 21:44 08/05/16 06:50 Glucose (Fingerstick) 107mg/dL (70-99) Sodium Level 143mmol/L (136-145) Potassium Level 4.6mmol/L (3.5-5.1) Chloride Level 104mmol/L (98-107) Carbon Dioxide Level 29mmol/L (21-32) Anion Gap 10 (6-14) Blood Urea Nitrogen 32mg/dL (8-26) Creatinine 1.4mg/dL (0.7-1.3) Estimated GFR (Cockcroft-Gault) 51.4 Glucose Level 111mg/dL (70-99) Calcium Level 9.8mg/dL (8.5-10.1) Triglycerides Level 55mg/dL (0-150) Cholesterol Level 89mg/dL (0-200) LDL Cholesterol, Calculated 27mg/dL (0-100) VLDL Cholesterol, Calculated 11mg/dL (0-40) HDL Cholesterol 51mg/dL (40-60) Cholesterol/HDL Ratio 1.7 Physical Exam HEENT: Neck Supple W Full Motion Chest: Symmetric LUNGS: Other (scattered posterior crackles; ) Heart: S1S2, RRR, other (left pectoral ICD; tele: SR/ST) Abdomen: Soft N/T Extremities: Other (1-2+ bilateral LE edema) Neurology: alert, oriented, follow commands Assessment Assessment 1. acute on chronic systolic HF LV function depressed at 20-25% on echo 03/2016 symptoms & physical exam improved with IV Bumex; continue today and then convert back to furosemide 80 mg orally tomorrow expect discharge tomorrow - f/u in office on 08/17/2016 @ 0930 2. non-ischemic cardiomyopathy [employer] ICD for prevention of SCD interrogated 06/2016 with stable impedances and adequate battery remaining 3. NSVT K WNL Mg normal Metoprolol succinate 25 mg daily for suppression has ICD to treat if indicated likely related to depressed LV function 4. CAD, mild non-obstructive did not complete MPI ordered 04/2016 no clear anginal symptoms continue medical management 5. HTN continue medications 6. HLD LDLs = 27 concur with decreasing atorvastatin dosage 7. CKD stable on IV Bumex FELIPA RODAS APRN Aug 05, 2016 08:48
--- NOTE | 2016-08-05 08:52 | PDOC ---
PROGRESS NOTES Subjective Subjective Patient feels swelling in legs is better. Some pain lateral aspect of left hip. Objective Objective Vital Signs Date Time Temp Pulse Resp B/P Pulse Ox O2 Delivery O2 Flow Rate FiO2 08/05/16 06:55 97.5 102 18 112/82 95 Room Air 97.5 08/04/16 02:30 2.0 Intake and Output 08/05/16 07:00 Intake Total 1480 ml Output Total 1650 ml Balance -170 ml Intake Oral 1480 ml Output Urine Total 1650 ml Physical Exam Abdomen: Normal bowel sounds, Soft, No tenderness Heart: Regular rate Extremities: Other (mild edema bilateral LE's, SANCHEZ hose on) General: Alert, Oriented X3, No acute distress MUSCULOSKELETAL: Other (Gait WNL) Assessment Assessment Problems Medical Problems: (1) Acute on chronic congestive heart failure Status: Acute (2) CHF (congestive heart failure) Status: Acute (3) Edema Status: Acute Plan Plan of Care 1. AE CHF - I's and O's are inaccurate but patient improving clinically. Continue BID Bumex today per Cardiology. 2. COPD - stable, no hypoxia on RA, continue nebs and inhalers. 3. HTN - controlled with present meds. 4. DM2 - controlled, continue Metformin. 5. left hip bursitis - patient needs to avoid NSAID's due to his CKD. Continue Merna or Tylenol prn, topical treatments at home advised. Patient declines outpatient referral to Orthopedics at this time. 6. CKD III - lab stable. Encouraged increased po fluids today. 7. hyperlipidemia - too tightly controlled with LDL 27, decrease Atorvastatin to 10mg daily. Comment Review of Relevant I have reviewed the following items jung (where applicable) has been applied. Labs Laboratory Tests Test 08/03/16 14:30 08/03/16 21:55 08/04/16 03:20 08/04/16 21:44 White Blood Count 9.3x10^3/uL (4.0-11.0) 7.9x10^3/uL (4.0-11.0) Red Blood Count 5.19x10^6/uL (4.30-5.70) 4.79x10^6/uL (4.30-5.70) Hemoglobin 16.5g/dL (13.0-17.5) 15.1g/dL (13.0-17.5) Hematocrit 49.9% (39.0-53.0) 47.5% (39.0-53.0) Mean Corpuscular Volume 96fL (79-100) 99fL (79-100) Mean Corpuscular Hemoglobin 32pg (25-35) 32pg (25-35) Mean Corpuscular Hemoglobin Concent 33g/dL (31-37) 32g/dL (31-37) Red Cell Distribution Width 15.5% (11.5-14.5) 16.2% (11.5-14.5) Platelet Count 248x10^3/uL (140-400) 219x10^3/uL (140-400) Neutrophils (%) (Auto) 76% (31-73) 66% (31-73) Lymphocytes (%) (Auto) 13% (24-48) 18% (24-48) Monocytes (%) (Auto) 7% (0-9) 10% (0-9) Eosinophils (%) (Auto) 3% (0-3) 5% (0-3) Basophils (%) (Auto) 1% (0-3) 1% (0-3) Neutrophils # (Auto) 7.1x10^3uL (1.8-7.7) 5.2x10^3uL (1.8-7.7) Lymphocytes # (Auto) 1.2x10^3/uL (1.0-4.8) 1.4x10^3/uL (1.0-4.8) Monocytes # (Auto) 0.6x10^3/uL (0.0-1.1) 0.8x10^3/uL (0.0-1.1) Eosinophils # (Auto) 0.3x10^3/uL (0.0-0.7) 0.4x10^3/uL (0.0-0.7) Basophils # (Auto) 0.1x10^3/uL (0.0-0.2) 0.1x10^3/uL (0.0-0.2) Sodium Level 142mmol/L (136-145) 146mmol/L (136-145) Potassium Level 4.5mmol/L (3.5-5.1) 4.4mmol/L (3.5-5.1) Chloride Level 104mmol/L (98-107) 108mmol/L (98-107) Carbon Dioxide Level 25mmol/L (21-32) 28mmol/L (21-32) Anion Gap 13 (6-14) 10 (6-14) Blood Urea Nitrogen 25mg/dL (8-26) 27mg/dL (8-26) Creatinine 1.4mg/dL (0.7-1.3) 1.4mg/dL (0.7-1.3) Estimated GFR (Cockcroft-Gault) 51.4 51.4 Glucose Level 129mg/dL (70-99) 103mg/dL (70-99) Calcium Level 9.5mg/dL (8.5-10.1) 9.4mg/dL (8.5-10.1) Total Bilirubin 0.9mg/dL (0.2-1.0) Direct Bilirubin 0.2mg/dL (0.0-0.2) Aspartate Amino Transf (AST/SGOT) 29U/L (15-37) Alanine Aminotransferase (ALT/SGPT) 27U/L (16-63) Alkaline Phosphatase 68U/L (46-116) Troponin I Quantitative 0.080ng/mL (0.000-0.055) 0.074ng/mL (0.000-0.055) 0.082ng/mL (0.000-0.055) ZU-Udi-N-Type Natriuretic Peptide 3401pg/mL (0-124) Total Protein 7.1g/dL (6.4-8.2) Albumin 3.7g/dL (3.4-5.0) Lipase 195U/L (73-393) Magnesium Level 2.1mg/dL (1.8-2.4) Glucose (Fingerstick) 107mg/dL (70-99) Test 08/05/16 06:50 Sodium Level 143mmol/L (136-145) Potassium Level 4.6mmol/L (3.5-5.1) Chloride Level 104mmol/L (98-107) Carbon Dioxide Level 29mmol/L (21-32) Anion Gap 10 (6-14) Blood Urea Nitrogen 32mg/dL (8-26) Creatinine 1.4mg/dL (0.7-1.3) Estimated GFR (Cockcroft-Gault) 51.4 Glucose Level 111mg/dL (70-99) Calcium Level 9.8mg/dL (8.5-10.1) Triglycerides Level 55mg/dL (0-150) Cholesterol Level 89mg/dL (0-200) LDL Cholesterol, Calculated 27mg/dL (0-100) VLDL Cholesterol, Calculated 11mg/dL (0-40) HDL Cholesterol 51mg/dL (40-60) Cholesterol/HDL Ratio 1.7 Laboratory Tests Test 08/04/16 21:44 08/05/16 06:50 Glucose (Fingerstick) 107mg/dL (70-99) Sodium Level 143mmol/L (136-145) Potassium Level 4.6mmol/L (3.5-5.1) Chloride Level 104mmol/L (98-107) Carbon Dioxide Level 29mmol/L (21-32) Anion Gap 10 (6-14) Blood Urea Nitrogen 32mg/dL (8-26) Creatinine 1.4mg/dL (0.7-1.3) Estimated GFR (Cockcroft-Gault) 51.4 Glucose Level 111mg/dL (70-99) Calcium Level 9.8mg/dL (8.5-10.1) Triglycerides Level 55mg/dL (0-150) Cholesterol Level 89mg/dL (0-200) LDL Cholesterol, Calculated 27mg/dL (0-100) VLDL Cholesterol, Calculated 11mg/dL (0-40) HDL Cholesterol 51mg/dL (40-60) Cholesterol/HDL Ratio 1.7 Medications Current Medications Furosemide (Lasix) 40 mg 1X ONCE IVP Last administered on 08/03/16t 15:17; Start 08/03/16 at 15:15; Stop 08/03/16 at 15:16; Status DC Ondansetron HCl (Zofran) 4 mg PRN Q8HRS PRN IV NAUSEA/VOMITING; Start 08/03/16 at 16:15; Stop 08/04/16 at 16:14; Status DC Morphine Sulfate 2 mg PRN Q2HR PRN IV PAIN Last administered on 08/04/16t 02:01 ; Start 08/03/16 at 16:15; Stop 08/04/16 at 16:14; Status DC Albuterol/ Ipratropium (Duoneb) 3 ml 1X ONCE NEB Last administered on 17:00; Start 08/03/16 at 17:00; Stop 08/03/16 at 17:01; Status DC Albuterol Sulfate (Ventolin Neb Soln) 2.5 mg PRN QID PRN NEB SHORTNESS OF BREATH Last administered on 08/03/16 19:45; Start 08/03/16 at 17:00 Aspirin (Ecotrin) 81 mg DAILY PO Last administered on 08/04/16 10:50; Start at 10:00 Atorvastatin Calcium (Lipitor) 20 mg QHS PO Last administered on 08/04/16 20: 45; Start 08/04/16 at 21:00 Citalopram Hydrobromide (Celexa) 20 mg DAILY PO Last administered on 08/04/16 10:51; Start 08/04/16 at 09:15 Furosemide (Lasix) 40 mg DAILY PO ; Start 08/04/16 at 09:15; Stop 08/04/16 at 09 :27; Status DC Metformin HCl (Glucophage) 500 mg BIDWMEALS PO Last administered on 08/04/16 17:27; Start 08/04/16 at 09:15 Metolazone (Zaroxolyn) 2.5 mg DAILY PO Last administered on 08/04/16 10:50; Start 08/04/16 at 09:15 Metoprolol Tartrate (Lopressor) 25 mg BID PO ; Start 08/04/16 at 09:15; Stop at 09:40; Status DC Tamsulosin HCl (Flomax) 0.4 mg HS PO Last administered on 08/04/16 20:45; Start 08/04/16 at 21:00 Non-Formulary Medication 2 puff BID IH ; Start 08/04/16 at 21:00; Stop 08/04/16 at 21:00; Status DC Non-Formulary Medication 2 inh DAILY05 IH ; Start 08/05/16 at 05:00; Stop at 05:00; Status DC Potassium Chloride (Klor-Con) 10 meq DAILYWBKFT PO Last administered on 10:50; Start 08/04/16 at 09:15 Albuterol/ Ipratropium (Duoneb) 3 ml Q6HRS NEB ; Start 08/04/16 at 12:00 Budesonide (Pulmicort) 0.5 mg RTBID NEB ; Start 08/04/16 at 10:00 Furosemide (Lasix) 60 mg DAILY PO ; Start 08/05/16 at 09:00; Stop 08/05/16 at 09 :00; Status DC Acetaminophen (Tylenol) 1,000 mg PRN Q6HRS PRN PO MILD PAIN / TEMP Last administered on 08/04/16 17:58; Start 08/04/16 at 09:30 Metoprolol Succinate (Toprol Xl) 25 mg DAILY PO Last administered on 08/04/16 10:51; Start 08/04/16 at 09:45 Bumetanide (Bumex) 1 mg BID92 IV Last administered on 08/04/16 17:27; Start at 09:45 Acetaminophen/ Hydrocodone Bitart (Lortab 5/325) 1 tab PRN Q4HRS PRN PO PAIN Last administered on 08/04/16 22:17; Start 08/04/16 at 22:00 Active Scripts Active Flomax (Tamsulosin Hcl) 0.4 Mg Cap.er.24h 1 Cap PO HS Prednisone 10 Mg Tablet 10 Mg PO UD 4 for 2 days then 3 for 2 days then 2 for 2 days then 1 for 2 days,OFF Metolazone 2.5 Mg Tablet 2.5 Mg PO DAILY Potassium Chloride 20 Meq Tablet.er 10 Meq PO DAILY Reported Metoprolol Tartrate 25 Mg Tablet 1 Tab PO BID Proair Hfa Inhaler (Albuterol Sulfate) 8.5 Gm Hfa.aer.ad 2 Puff IH PRN Q2HR PRN Albuterol Sulfate Neb Soln (Albuterol Sulfate) 2.5 Mg/3 Ml Vial.neb 1 Vial NEB PRN Q4HRS Symbicort 160-4.5 Mcg Inhaler (Budesonide/Formoterol Fumarate) 10.2 Gm Hfa.aer.ad 2 Puff IH BID Atorvastatin Calcium 20 Mg Tablet 20 Mg PO DAILY Testosterone Cypionate 200 Mg/1 Ml Vial 200 Mg IM Q2WKS Metformin Hcl 500 Mg Tablet 500 Mg PO BIDWMEALS Spiriva (Tiotropium [place]) 18 Mcg Cap.w.dev 2 Inh IH DAILY05 Aspirin Ec (Aspirin) 81 Mg Tablet.dr 81 Mg PO DAILY Lasix (Furosemide) 40 Mg Tablet Unknown Dose PO DAILY Celexa (Citalopram Hydrobromide) 20 Mg Tablet Unknown Dose PO DAILY Trazodone Hcl 50 Mg Tablet Unknown Dose PO DAILY Vitals/I & O Vital Sign - Last 24 Hours 08/04/16 08/04/16 08/04/16 08/04/16 10:51 11:00 15:00 19:00 Temp 97.6 97.6 97.1 97.6 97.6 97.1 Pulse 105 113 108 75 Resp 20 20 18 B/P 102/74 145/86 103/75 140/72 Pulse Ox 96 97 94 O2 Delivery Room Air Room Air Room Air 08/04/16 08/04/16 08/04/16 08/05/16 20:00 22:17 23:17 03:00 Temp 97.1 97.1 Pulse 72 Resp 18 B/P 140/75 Pulse Ox 94 O2 Delivery Room Air Room Air Room Air Room Air 08/05/16 06:55 Temp 97.5 97.5 Pulse 102 Resp 18 B/P 112/82 Pulse Ox 95 O2 Delivery Room Air Intake and Output 08/04/16 08/04/16 08/05/16 15:00 23:00 07:00 Intake Total 700 ml 780 ml Output Total 1000 ml 650 ml Balance -300 ml 130 ml MOOKIE SAGE MD Aug 05, 2016 08:52
[2016-08-05] MEDS ORDERED: FUROSEMIDE 20 MG TABLET PO SCH (09:00)
[2016-08-05] MEDS: METOPROLOL SUCC 24HR ER 25 MG TAB.ER.24H. PO SCH (09:52)
[2016-08-05] MEDS: CITALOPRAM 20 MG TABLET. PO SCH (09:53)
[2016-08-05] MEDS: METOLAZONE 2.5 MG TABLET PO SCH (09:53)
[2016-08-05] MEDS: ASPIRIN ENTERIC COATED 81 MG TABLET.DR. PO SCH (09:53)
[2016-08-05] MEDS: POTASSIUM CHLORIDE 10 MEQ TABLET.ER. PO SCH (09:53)
[2016-08-05] MEDS: METFORMIN 500 MG TABLET. PO SCH ×2 (09:53→17:49)
[2016-08-05] MEDS: BUMETANIDE 1 MG/4 ML VIAL. IV SCH ×2 (09:54→14:48)
[2016-08-05] MEDS: HYDROCODONE/APAP 5/325MG TABLET. PO PRN ×2 (09:57→21:16)
[2016-08-05 10:47] VITALS: BP 109/51
[2016-08-05 14:51] VITALS: BP 109/79
[2016-08-05 19:16] VITALS: BP 113/74
[2016-08-05] MEDS: TAMSULOSIN 0.4 MG CAP.ER.24H. PO SCH (20:28)
[2016-08-05] MEDS ORDERED: ATORVASTATIN CALCIUM 10 MG TABLET. PO SCH (21:00)
[2016-08-05 23:00] VITALS: BP 110/75
[2016-08-06 03:00] VITALS: BP 101/79
[2016-08-06 04:55] LABS: CALCIUM 9.4 mg/dL (8.5-10.1); CREATININE 1.5 mg/dL (0.7-1.3); GFR 47.4; POTASSIUM 3.7 mmol/L (3.5-5.1)
[2016-08-06 07:00] VITALS: BP 109/88
[2016-08-06] MEDS: BUDESONIDE 0.5 MG/2 ML NEBU NEB SCH (07:30)
[2016-08-06] MEDS: POTASSIUM CHLORIDE 10 MEQ TABLET.ER. PO SCH (09:00)
[2016-08-06] MEDS: CITALOPRAM 20 MG TABLET. PO SCH (09:00)
[2016-08-06] MEDS: METOLAZONE 2.5 MG TABLET PO SCH (09:00)
[2016-08-06] MEDS ORDERED: FUROSEMIDE 80 MG TABLET PO SCH (09:00)
[2016-08-06] MEDS: HYDROCODONE/APAP 5/325MG TABLET. PO PRN (09:00)
[2016-08-06] MEDS: ASPIRIN ENTERIC COATED 81 MG TABLET.DR. PO SCH (09:01)
[2016-08-06] MEDS: METFORMIN 500 MG TABLET. PO SCH (09:01)
[2016-08-06] MEDS: METOPROLOL SUCC 24HR ER 25 MG TAB.ER.24H. PO SCH (09:02)
--- NOTE | 2016-08-06 09:25 | PDOC ---
PROGRESS NOTES Subjective Subjective Patient without complaint, agreeable to discharge today. Objective Objective Vital Signs Date Time Temp Pulse Resp B/P Pulse Ox O2 Delivery O2 Flow Rate FiO2 08/06/16 09:02 99 109/88 08/06/16 09:00 Room Air 08/06/16 07:00 98.8 18 97 98.8 08/05/16 09:57 2.0 Intake and Output 08/06/16 07:00 Intake Total 1340 ml Output Total 2450 ml Balance -1110 ml Intake Oral 1340 ml Output Urine Total 2450 ml Physical Exam Abdomen: Normal bowel sounds, Soft, No tenderness Heart: Regular rate Extremities: Other (1+ pitting edema L LE, scant edema on R LE) General: Alert, Oriented X3, No acute distress Lungs: Other (BS decreased throughout but CTA) Assessment Assessment Problems Medical Problems: (1) Acute on chronic congestive heart failure Status: Acute (2) CHF (congestive heart failure) Status: Acute (3) Edema Status: Acute Plan Plan of Care 1. AE systolic and diastolic CHF - good diuresis and symptoms improved. Home today. WIll continue on his previous Lasix 60mg daily to avoid worsening CKD with higher dose of diuretic. Patient aware of advice to avoid salt, elevate legs and wear SANCHEZ hose daily when up. 2. COPD - stable, no hypoxia on RA. Continue his usual inhalers and nebs. 3. DM2 - controlled, continue Metformin. 4. HTN - controlled, continue present meds. 5. CKD III - creatinine stable, some mild elevation in BUN with aggressive diuresis. 6. hyperlipidemia - lipids too tightly controlled, home on lower dose of Atorvastatin. Comment Review of Relevant I have reviewed the following items jung (where applicable) has been applied. Labs Laboratory Tests Test 08/04/16 21:44 08/05/16 06:50 08/05/16 12:52 08/05/16 16:58 Glucose (Fingerstick) 107mg/dL (70-99) 171mg/dL (70-99) 120mg/dL (70-99) Sodium Level 143mmol/L (136-145) Potassium Level 4.6mmol/L (3.5-5.1) Chloride Level 104mmol/L (98-107) Carbon Dioxide Level 29mmol/L (21-32) Anion Gap 10 (6-14) Blood Urea Nitrogen 32mg/dL (8-26) Creatinine 1.4mg/dL (0.7-1.3) Estimated GFR (Cockcroft-Gault) 51.4 Glucose Level 111mg/dL (70-99) Calcium Level 9.8mg/dL (8.5-10.1) Triglycerides Level 55mg/dL (0-150) Cholesterol Level 89mg/dL (0-200) LDL Cholesterol, Calculated 27mg/dL (0-100) VLDL Cholesterol, Calculated 11mg/dL (0-40) HDL Cholesterol 51mg/dL (40-60) Cholesterol/HDL Ratio 1.7 Test 08/06/16 04:00 08/06/16 07:17 Sodium Level 142mmol/L (136-145) Potassium Level 3.7mmol/L (3.5-5.1) Chloride Level 100mmol/L (98-107) Carbon Dioxide Level 32mmol/L (21-32) Anion Gap 10 (6-14) Blood Urea Nitrogen 37mg/dL (8-26) Creatinine 1.5mg/dL (0.7-1.3) Estimated GFR (Cockcroft-Gault) 47.4 Glucose Level 93mg/dL (70-99) Calcium Level 9.4mg/dL (8.5-10.1) Glucose (Fingerstick) 105mg/dL (70-99) Laboratory Tests Test 08/05/16 12:52 08/05/16 16:58 08/06/16 04:00 08/06/16 07:17 Glucose (Fingerstick) 171mg/dL (70-99) 120mg/dL (70-99) 105mg/dL (70-99) Sodium Level 142mmol/L (136-145) Potassium Level 3.7mmol/L (3.5-5.1) Chloride Level 100mmol/L (98-107) Carbon Dioxide Level 32mmol/L (21-32) Anion Gap 10 (6-14) Blood Urea Nitrogen 37mg/dL (8-26) Creatinine 1.5mg/dL (0.7-1.3) Estimated GFR (Cockcroft-Gault) 47.4 Glucose Level 93mg/dL (70-99) Calcium Level 9.4mg/dL (8.5-10.1) Medications Current Medications Furosemide (Lasix) 40 mg 1X ONCE IVP Last administered on 08/03/16 15:17; Start 08/03/16 at 15:15; Stop 08/03/16 at 15:16; Status DC Ondansetron HCl (Zofran) 4 mg PRN Q8HRS PRN IV NAUSEA/VOMITING; Start 08/03/16 at 16:15; Stop 08/04/16 at 16:14; Status DC Morphine Sulfate 2 mg PRN Q2HR PRN IV PAIN Last administered on 08/04/16 02:01 ; Start 08/03/16 at 16:15; Stop 08/04/16 at 16:14; Status DC Albuterol/ Ipratropium (Duoneb) 3 ml 1X ONCE NEB Last administered on 17:00; Start 08/03/16 at 17:00; Stop 08/03/16 at 17:01; Status DC Albuterol Sulfate (Ventolin Neb Soln) 2.5 mg PRN QID PRN NEB SHORTNESS OF BREATH Last administered on 08/03/16 19:45; Start 08/03/16 at 17:00 Aspirin (Ecotrin) 81 mg DAILY PO Last administered on 08/06/16 09:01; Start at 10:00 Atorvastatin Calcium (Lipitor) 20 mg QHS PO Last administered on 08/04/16 20: 45; Start 08/04/16 at 21:00; Stop 08/05/16 at 08:38; Status DC Citalopram Hydrobromide (Celexa) 20 mg DAILY PO Last administered on 08/05/16 09:53; Start 08/04/16 at 09:15 Furosemide (Lasix) 40 mg DAILY PO ; Start 08/04/16 at 09:15; Stop 08/04/16 at 09 :27; Status DC Metformin HCl (Glucophage) 500 mg BIDWMEALS PO Last administered on 08/06/16 09:01; Start 08/04/16 at 09:15 Metolazone (Zaroxolyn) 2.5 mg DAILY PO Last administered on 08/06/16 09:00; Start 08/04/16 at 09:15 Metoprolol Tartrate (Lopressor) 25 mg BID PO ; Start 08/04/16 at 09:15; Stop at 09:40; Status DC Tamsulosin HCl (Flomax) 0.4 mg HS PO Last administered on 08/05/16 20:28; Start 08/04/16 at 21:00 Non-Formulary Medication 2 puff BID IH ; Start 08/04/16 at 21:00; Stop 08/04/16 at 21:00; Status DC Non-Formulary Medication 2 inh DAILY05 IH ; Start 08/05/16 at 05:00; Stop at 05:00; Status DC Potassium Chloride (Klor-Con) 10 meq DAILYWBKFT PO Last administered on 09:00; Start 08/04/16 at 09:15 Albuterol/ Ipratropium (Duoneb) 3 ml Q6HRS NEB ; Start 08/04/16 at 12:00 Budesonide (Pulmicort) 0.5 mg RTBID NEB ; Start 08/04/16 at 10:00 Furosemide (Lasix) 60 mg DAILY PO ; Start 08/05/16 at 09:00; Stop 08/05/16 at 09 :00; Status DC Acetaminophen (Tylenol) 1,000 mg PRN Q6HRS PRN PO MILD PAIN / TEMP Last administered on 08/04/16 17:58; Start 08/04/16 at 09:30 Metoprolol Succinate (Toprol Xl) 25 mg DAILY PO Last administered on 08/06/16 09:02; Start 08/04/16 at 09:45 Bumetanide (Bumex) 1 mg BID92 IV Last administered on 08/04/16 17:27; Start at 09:45; Stop 08/05/16 at 08:40; Status DC Acetaminophen/ Hydrocodone Bitart (Lortab 5/325) 1 tab PRN Q4HRS PRN PO PAIN Last administered on 08/06/16 09:00; Start 08/04/16 at 22:00 Atorvastatin Calcium (Lipitor) 10 mg QHS PO Last administered on 08/05/16 20: 28; Start 08/05/16 at 21:00 Bumetanide (Bumex) 1 mg BID92 IV Last administered on 08/05/16 14:48; Start at 09:00; Stop 08/05/16 at 23:20; Status DC Furosemide (Lasix) 80 mg DAILY PO Last administered on 08/06/16t 08:58; Start 08/06/16 at 09:00 Active Scripts Active Flomax (Tamsulosin Hcl) 0.4 Mg Cap.er.24h 1 Cap PO HS Prednisone 10 Mg Tablet 10 Mg PO UD 4 for 2 days then 3 for 2 days then 2 for 2 days then 1 for 2 days,OFF Metolazone 2.5 Mg Tablet 2.5 Mg PO DAILY Potassium Chloride 20 Meq Tablet.er 10 Meq PO DAILY Reported Metoprolol Tartrate 25 Mg Tablet 1 Tab PO BID Proair Hfa Inhaler (Albuterol Sulfate) 8.5 Gm Hfa.aer.ad 2 Puff IH PRN Q2HR PRN Albuterol Sulfate Neb Soln (Albuterol Sulfate) 2.5 Mg/3 Ml Vial.neb 1 Vial NEB PRN Q4HRS Symbicort 160-4.5 Mcg Inhaler (Budesonide/Formoterol Fumarate) 10.2 Gm Hfa.aer.ad 2 Puff IH BID Atorvastatin Calcium 20 Mg Tablet 20 Mg PO DAILY Testosterone Cypionate 200 Mg/1 Ml Vial 200 Mg IM Q2WKS Metformin Hcl 500 Mg Tablet 500 Mg PO BIDWMEALS Spiriva (Tiotropium [place]) 18 Mcg Cap.w.dev 2 Inh IH DAILY05 Aspirin Ec (Aspirin) 81 Mg Tablet.dr 81 Mg PO DAILY Lasix (Furosemide) 40 Mg Tablet Unknown Dose PO DAILY Celexa (Citalopram Hydrobromide) 20 Mg Tablet Unknown Dose PO DAILY Trazodone Hcl 50 Mg Tablet Unknown Dose PO DAILY Vitals/I & O Vital Sign - Last 24 Hours 08/05/16 08/05/16 08/05/16 08/05/16 09:52 09:57 10:47 14:51 Temp 97.6 97.4 97.6 97.4 Pulse 102 104 103 Resp 18 18 B/P 112/82 109/51 109/79 Pulse Ox 95 93 95 O2 Delivery Room Air Room Air Room Air O2 Flow Rate 2.0 08/05/16 08/05/16 08/05/16 08/05/16 19:16 20:00 21:16 22:33 Temp 97.7 97.7 Pulse 100 Resp 18 B/P 113/74 Pulse Ox 99 O2 Delivery Room Air Room Air Room Air Room Air 08/05/16 08/06/16 08/06/16 08/06/16 23:00 03:00 07:00 09:00 Temp 97.9 97.5 98.8 97.9 97.5 98.8 Pulse 107 103 99 Resp 18 18 18 B/P 110/75 101/79 109/88 Pulse Ox 96 96 97 O2 Delivery Room Air Room Air Room Air 08/06/16 09:02 Pulse 99 B/P 109/88 Intake and Output 08/05/16 08/05/16 08/06/16 15:00 23:00 07:00 Intake Total 440 ml 900 ml 0 ml Output Total 1000 ml 600 ml 850 ml Balance -560 ml 300 ml -850 ml MOOKIE SAGE MD Aug 06, 2016 09:25
[2016-08-06] MEDS ORDERED: ATOR10TA60 PO (09:28)
[2016-08-06 10:46] VITALS: BP 115/80
--- NOTE | 2016-08-06 19:52 | DS ---
DATE OF DISCHARGE: 08/06/2016 CHIEF COMPLAINT: Lower extremity edema. HISTORY OF PRESENT ILLNESS: The patient is a 61-year-old male with a history of systolic and diastolic congestive heart failure and severe nonischemic cardiomyopathy who presented to the Emergency Room with the above complaint. He reported the onset of increased swelling in his legs for about one week prior to admission. He stated that he had been wearing his SANCHEZ hose every day at home but the swelling seemed to be getting worse and he could no longer get on the hose on. He had apparently called Dr. Matos's office and been told to increase his Lasix from 60 mg daily to 80 mg daily. He had tried this, but did not feel that he was having an increased urine out from it. The swelling worsened and he came to the Emergency Room. Initial evaluation there showed a mildly elevated troponin. EKG was without acute ischemic change. Chest x-ray did not show increased pulmonary vascularity. The patient was given an increased dose of Lasix and admitted for further treatment. HOSPITAL COURSE: The patient was admitted and placed on telemetry where he remained in sinus rhythm. He was seen in consultation by Dr. Matos, his usual weathercaster. His diuretics were increased to Bumex 1 mg IV b.i.d. With this, he had a good diuresis. The edema in his legs is much improved. The patient has chronic kidney disease stage III. His renal function has remained stable with the increased diuretics. His BUN is mildly elevated, but he is taking oral fluids well and so this should not present a problem for him. He will be discharged today on his usual dose of Lasix 60 mg daily. He is strongly advised to avoid salt in his diet. He is advised to keep this legs elevated when he can and to wear his SANCHEZ hose daily to help with his chronic venous insufficiency. The patient's other chronic medical problems remained stable. He has COPD. He continues to smoke cigarettes at times, smoking cessation has been advised. His respiratory function is stable with his usual inhalers and nebulized treatments and he is to continue these. The patient's high blood pressure is well controlled with his usual medication. His diabetes is controlled with his usual metformin. The patient has hyperlipidemia and has been taking atorvastatin 20 mg daily for this. Fasting lipids here showed a total cholesterol of 89 and LDL of 27 and an HDL of 51. His lipids are obviously too well controlled and he is advised to decrease his atorvastatin to 10 mg daily. The patient will be discharged home today. FINAL DIAGNOSES: 1. Acute exacerbation of diastolic and systolic congestive heart failure. 2. Severe nonischemic cardiomyopathy with ejection fraction 20-25%. 3. Chronic obstructive pulmonary disease. 4. Diabetes mellitus type 2. 5. Hypertension. 6. Chronic kidney disease stage III. 7. Hyperlipidemia. DISCHARGE MEDICATIONS: Atorvastatin 10 mg daily, albuterol nebulized treatments as needed, aspirin 81 mg daily, Symbicort 160/4.5 two puffs b.i.d., citalopram 20 mg daily, Lasix 40 mg tablets 1-1/2 tablet daily, metformin 500 mg b.i.d., metolazone 2.5 mg daily, metoprolol tartrate 25 mg b.i.d., potassium 10 mEq daily, Flomax 0.4 mg daily, Spiriva 1 puff daily, trazodone 50 mg at bedtime. Followup is With Dr. Palacios in 2 weeks[address] up with Dr. Matos on 08/17/2016. MOOKIE PALACIOS MD DR: SHIELA/elder JOB#: [id number] / [id number] JEFFERY
== END 2016-08-06 12:30 | disposition home or self-care (01) | DRG 292 ==
LOC: ER 14:06 → ED HOLD 16:01 → OBSVTOIN 16:01 → 6 SOUTH 18:04
PROVIDERS: ADMIT Family Medicine; ATTEND Family Medicine
DX: I50.43 Acute on chronic combined systolic (congestive) and diastolic (congestive) heart failure (principal); I13.0 Hypertensive heart and chronic kidney disease with heart failure and stage 1 through stage 4 chronic kidney disease, or unspecified chronic kidney disease; I47.2 Ventricular tachycardia; I42.9 Cardiomyopathy, unspecified; I25.10 Atherosclerotic heart disease of native coronary artery without angina pectoris; G47.33 Obstructive sleep apnea (adult) (pediatric); F31.9 Bipolar disorder, unspecified; F17.210 Nicotine dependence, cigarettes, uncomplicated; E78.5 Hyperlipidemia, unspecified; E11.22 Type 2 diabetes mellitus with diabetic chronic kidney disease; J44.9 Chronic obstructive pulmonary disease, unspecified; N18.3 Chronic kidney disease, stage 3 (moderate); J30.9 Allergic rhinitis, unspecified; I87.2 Venous insufficiency (chronic) (peripheral); M19.90 Unspecified osteoarthritis, unspecified site; N40.0 Benign prostatic hyperplasia without lower urinary tract symptoms; Z85.820 Personal history of malignant melanoma of skin; Z95.810 Presence of automatic (implantable) cardiac defibrillator; Z99.81 Dependence on supplemental oxygen; Z79.82 Long term (current) use of aspirin
CPT/HCPCS: 36415; 71010; 80048; 80061; 80076; 82947; 83690; 83735; 83880; 84484; 85027; 93005; 94250; 94640; J1940; J2270; J3490; J7620

== ENCOUNTER → 2016-09-16 | Outpatient (CLI) | payer OTHER ==
[~2016-09-16] MED LIST changes: +ATOR10TA60 PO; +HYDR-2666 PO
--- NOTE | 2016-09-17 08:49 | RAD ---
APPROVED REPORT Patient Location : OUT-PATIENT Indications Findings Rose scale images of the bilateral saphenofemoral junctions and greater saphenous veins was performed . On the right there is no evidence of thrombus on limited imaging of the saphenofemoral junction. The great saphenous vein measures approximately 7.1 mm in greatest dimension. There is no evidence of ref lux. On the left there is no evidence of thrombus on limited imaging. The left great saphenous vein m easures approximately 8.7 mm in greatest diameter. There is no evidence of reflux bicolor Doppler and spectral images. The bilateral lesser saphenous veins were not visualized/imaged. Critical Notification Critical Value: No <Conclusion> No evidence of reflux in the bilateral greater saphenous veins.
--- NOTE | 2016-09-17 16:07 | RAD ---
APPROVED REPORT Patient Location: OUT-PATIENT Indications Claudication:Bilaterally VELOCITY AND DOPPLER WAVEFORM ANALYSIS RIGHT cm/secWaveformSeverity LEFT c m/secWaveformSeverity pCFA 74.1BiphasicpCFA dCFA dCFA 85.0Biphasic Prof Fem Art. 68.8BiphasicProf Fem Art. Fem Art Prox. 69.4BiphasicFem Art Prox. 68.9Biphasic Fem Art Mid. 96.4BiphasicFem Art Mid. 86.8Biphasic Fem Art Dist. 166.6BiphasicFem Art Dist. 81.6Biphasic Pop Art(BK) 59.8BiphasicPop Art(BK) 40.7Monophasic [employer] Dist. 85.0MonophasicPTA Dist. 74.0Monophasic Per Art Dist. 46.3MonophasicPer Art Dist. 68.5Biphasic [place] Prox. 52.9MonophasicATA Prox. 61.1Monophasic [place] Dist. 69.0MonophasicATA Dist. 48.0Monophasic Findings Lower extremity duplex ultrasonography was performed bilaterally. On delong scale images there is mild to moderate diffuse plaque in the bilateral lower extremity arterial vessels extending from the commo n femoral artery to the below-knee vessels. Spectral waveforms and color Doppler demonstrated mostly biphasic waveforms above the knee bilaterall y with likely greater than 50% stenosis involving the mid to distal superficial femoral artery on the right side. There is also delayed upstroke consistent with parvus and tardus phenomena in the right lower extremity below-knee vessels. Critical Notification Critical Value: No <Conclusion> Suspect greater than 50% stenosis in the right lower extremity. No significant disease in the left lower extremity.
--- NOTE | 2016-09-17 16:48 | RAD ---
APPROVED REPORT Bilateral Lower Extremity Venous Study for DVT Patient Location: OUT-PATIENT Indications Lower Extremity Edema: Findings Bilateral delong scale images of the lower extremity deep venous structures do not reveal any evidence of thrombus. The above knee venous structures appear to be compressible fully. Below-knee veins were not well visualized. Spectral waveforms and color Doppler do not reveal any evidence of significant r eflux or thrombus. Critical Notification Critical Value: No <Conclusion> Negative DVT study of the bilateral lower extremities
== END | disposition home or self-care (01) ==
LOC: US 15:55
PROVIDERS: ATTEND Internal Medicine Cardiovascular Disease
DX: R60.0 Localized edema (principal)
CPT/HCPCS: 93925; 93970

== ENCOUNTER 2016-09-28 18:58 | Inpatient (IN) | payer OTHER ==
[~2016-09-28] VITALS: Ht 172.7 cm; Wt 85.3 kg
[~2016-09-28 18:58] MED LIST changes: -HYDR-2666 PO; +METF-620 PO; -METF10002 PO
[2016-09-28 20:21] LABS: BASO % 0 % (0-3); EOS % 2 % (0-3); HEMATOCRIT 46.2 % (39.0-53.0); HEMOGLOBIN 14.8 g/dL (13.0-17.5); LYMPH # 1.4 x10^3/uL (1.0-4.8); LYMPH % 18 % (24-48); MEAN CORPUSCULAR HEMOGLOBIN 31 pg (25-35); MEAN CORPUSCULAR HGB CONC 32 g/dL (31-37); MEAN CORPUSCULAR VOLUME 95 fL (79-100); MONO % 9 % (0-9); NEUT % 71 % (31-73); PLATELET COUNT 228 x10^3/uL (140-400); RED BLOOD COUNT 4.85 x10^6/uL (4.30-5.70); RED CELL DISTRIBUTION WIDTH 15.8 % (11.5-14.5); WHITE BLOOD COUNT 7.8 x10^3/uL (4.0-11.0)
[2016-09-28] MEDS ORDERED: ALBUTEROL SULFATE 2.5 MG/3 ML NEBU. NEB ONE (20:30)
[2016-09-28 20:49] LABS: CALCIUM 9.1 mg/dL (8.5-10.1); CREATININE 1.3 mg/dL (0.7-1.3); GFR 55.9; POTASSIUM 4.1 mmol/L (3.5-5.1)
[2016-09-28 20:53] LABS: ALBUMIN 3.3 g/dL (3.4-5.0); DIRECT BILIRUBIN 0.2 mg/dL (0.0-0.2); TOTAL BILIRUBIN 0.6 mg/dL (0.2-1.0); TOTAL PROTEIN 7.7 g/dL (6.4-8.2)
[2016-09-28] MEDS ORDERED: FUROSEMIDE 40 MG/4 ML VIAL. IVP ONE (21:15)
--- NOTE | 2016-09-28 21:26 | PHYS DOC ---
Past Medical History Past Medical History: Bipolar, CHF, COPD, Diabetes-Type II, Hypertension Additional Past Medical Histor: emphysema Past Surgical History: Other Additional Past Surgical Histo: umbilical hernia, sinus surgery, hemorrhoid surgery, pacemaker/defib Alcohol Use: Heavy Drug Use: None Adult General Chief Complaint Chief Complaint: LOWER EXTREMITY EDEMA HPI HPI 61 YO M presenting to the ED today with increasing bilateral leg swelling and shortness of breath. He shortness of breath is worse with exertion worse with laying down. He has associated leg swelling. He denies fevers or cough. He denies nausea vomiting fevers or chills. He recently had his Lasix decreased from 80-40. Since then he has had worsening swelling. Onset weeks. Location generalized. Duration intermittent. Worse with walking. Review of systems is negative for chest pain cough fevers chills abdominal pain nausea vomiting. All other review of systems is negative unless otherwise noted in history of present illness. Review of Systems Review of Systems SEE ABOVE. Current Medications Current Medications Current Medications Medications (Trade) Dose Ordered Sig/Syeda Start Time Stop Time Status Last Admin Dose Admin Albuterol Sulfate (Ventolin Neb Soln) 2.5 mg 1X ONCE 09/28/16 20:30 09/28/16 20:32 DC 09/28/16 20:51 2.5 MG Albuterol/ Ipratropium (Duoneb) 3 ml RTQID 09/29/16 08:00 09/30/16 07:59 Furosemide (Lasix) 40 mg 1X ONCE 09/28/16 21:15 09/28/16 21:16 DC 09/28/16 21:26 40 MG Morphine Sulfate 2 mg PRN Q2HR PRN 09/28/16 21:30 09/29/16 21:29 Ondansetron HCl (Zofran) 4 mg PRN Q8HRS PRN 09/28/16 21:30 09/29/16 21:29 Allergies Allergies Allergies Coded Allergies Type Severity Reaction Last Updated Verified No Known Drug Allergies 08/03/16 No Physical Exam Physical Exam Constitutional: Well developed, well nourished, no acute distress, non-toxic appearance. [] HENT: Normocephalic, atraumatic, bilateral external ears normal, oropharynx moist, no oral exudates, nose normal. [] Eyes: PERRLA, EOMI, conjunctiva normal, no discharge. [] Neck: Normal range of motion, no tenderness, supple, no stridor. [] Cardiovascular:Heart rate regular rhythm, no murmur [] Lungs & Thorax: Crackles present bilaterally on pulmonary examination. Abdomen: Bowel sounds normal, soft, no tenderness, no masses, no pulsatile masses. [] Skin: Warm, dry, no erythema, no rash. [] Back: No tenderness, no CVA tenderness. [] Extremities: 3-4+ edema bilaterally with palpable pulse. Normal neurovascular status. Neurologic: Alert and oriented X 3, normal motor function, normal sensory function, no focal deficits noted. [] Psychologic: Affect normal, judgement normal, mood normal. [] Current Patient Data Vital Signs Vital Signs Date Time Temp Pulse Resp B/P Pulse Ox O2 Delivery O2 Flow Rate FiO2 09/28/16 20:54 95 Room Air 09/28/16 19:24 98.8 111 20 112/80 98.8 Lab Values Laboratory Tests Test 09/28/16 19:55 White Blood Count 7.8x10^3/uL (4.0-11.0) Red Blood Count 4.85x10^6/uL (4.30-5.70) Hemoglobin 14.8g/dL (13.0-17.5) Hematocrit 46.2% (39.0-53.0) Mean Corpuscular Volume 95fL (79-100) Mean Corpuscular Hemoglobin 31pg (25-35) Mean Corpuscular Hemoglobin Concent 32g/dL (31-37) Red Cell Distribution Width 15.8% (11.5-14.5) H Platelet Count 228x10^3/uL (140-400) Neutrophils (%) (Auto) 71% (31-73) Lymphocytes (%) (Auto) 18% (24-48) L Monocytes (%) (Auto) 9% (0-9) Eosinophils (%) (Auto) 2% (0-3) Basophils (%) (Auto) 0% (0-3) Neutrophils # (Auto) 5.5x10^3uL (1.8-7.7) Lymphocytes # (Auto) 1.4x10^3/uL (1.0-4.8) Monocytes # (Auto) 0.7x10^3/uL (0.0-1.1) Eosinophils # (Auto) 0.1x10^3/uL (0.0-0.7) Basophils # (Auto) 0.0x10^3/uL (0.0-0.2) Sodium Level 141mmol/L (136-145) Potassium Level 4.1mmol/L (3.5-5.1) Chloride Level 104mmol/L (98-107) Carbon Dioxide Level 26mmol/L (21-32) Anion Gap 11 (6-14) Blood Urea Nitrogen 26mg/dL (8-26) Creatinine 1.3mg/dL (0.7-1.3) Estimated GFR (Cockcroft-Gault) 55.9 Glucose Level 107mg/dL (70-99) H Lactic Acid Level 1.2mmol/L (0.4-2.0) Calcium Level 9.1mg/dL (8.5-10.1) Total Bilirubin 0.6mg/dL (0.2-1.0) Direct Bilirubin 0.2mg/dL (0.0-0.2) Aspartate Amino Transferase (AST) 26U/L (15-37) Alanine Aminotransferase (ALT) 28U/L (16-63) Alkaline Phosphatase 78U/L (46-116) Troponin I Quantitative 0.061ng/mL (0.000-0.055) RO-Lju-I-Type Natriuretic Peptide 6808pg/mL (0-124) H Total Protein 7.7g/dL (6.4-8.2) Albumin 3.3g/dL (3.4-5.0) L Lipase 110U/L (73-393) Laboratory Tests 09/28/16 19:55 Laboratory Tests 09/28/16 19:55 EKG EKG [] Radiology/Procedures Radiology/Procedures [] Course & Med Decision Making Course & Med Decision Making Pertinent Labs and Imaging studies reviewed. (See chart for details) [] 61-year-old male presenting to the emergency department with signs and symptoms suggestive of CHF exacerbation. She was then admitted to his primary care physician. Cardiology consults placed. Lasix given in the emergency department. Troponin elevated just above the reference range of normal. The patient was given an aspirin. Dragon Disclaimer Dragon Disclaimer This electronic medical record was generated, in whole or in part, using a voice recognition dictation system. Departure Departure Impression: Primary Impression: Acute exacerbation of CHF (congestive heart failure) Additional Impression: Troponin level elevated Disposition: ADMITTED INPATIENT Admitting Physician: Lien Palacios Condition: IMPROVED Referrals: LIEN PALACIOS MD (PCP) Problem Qualifiers Primary Impression: Acute exacerbation of CHF (congestive heart failure) Congestive heart failure type: combined Qualified Code: I50.43 - Acute on chronic combined systolic (congestive) and diastolic (congestive) heart failure JUAN MERRILL MD Sep 28, 2016 21:26
[2016-09-28] MEDS ORDERED: ONDANSETRON PF 4 MG/2 ML VIAL. IV PRN (21:30)
[2016-09-28] MEDS ORDERED: MORPHINE SULFATE 2 MG/ML DISP.SYRIN. IV PRN (21:30)
[2016-09-28] MEDS ORDERED: ASPIRIN CHEWABLE 81 MG TABLET. PO ONE (22:00)
[2016-09-28 22:27] LABS: BILIRUBIN,URINE NEGATIVE (NEG); GLUCOSE,URINE NEGATIVE (NEG); NITRITE,URINE NEGATIVE (NEG); PH,URINE 5.5; PROTEIN,URINE 30 mg/dL (NEG-TRACE); UROBILINOGEN,URINE 0.2 mg/dL (0.2 mg/dL)
[2016-09-28 22:35] LABS: BACTERIA,URINE 0 /HPF (0-FEW); RBC,URINE 0 /HPF (0-2)
--- NOTE | 2016-09-28 23:07 | ACF ---
Admission Forms Criteria HEART FAILURE Clinical Indications for Admission to Inpatient Care (Place 'X' for any and all applicable criteria): Admission is indicated by ANY ONE of the following(1)(2)(3)(4): [ ]I. Severe electrolyte abnormalities requiring inpatient care(9) [ ]II. Hemodynamic instability [ ]III. Anasarca [ ]IV. Acute cardiac ischemia causing or associated with failure (Also use Angina or Myocardial Infarction as appropriate) [ ]V. Cardiac arrhythmias of immediate concern [ ]. Precipitating cause for acute decompensation (eg, pneumonia, pulmonary embolism) requires inpatient care [ ]VII. Pulmonary edema that is very severe (eg, mechanical ventilation needed, imminent or likely, need for 100% oxygen to keep oxygen saturation above 90%) [ ]VIII. Inpatient admission required rather than observation care (Also use Heart Failure: Observation Care as appropriate) because of ANY ONE of the following: [ ]a) Pulmonary edema that is severe or worsening as indicated by ALL of the following: [ ]i) New need for oxygen therapy to keep oxygen saturation above 90% (or increased FiO2 need from baseline) [ ]ii) Has not improved sufficiently with emergency department or observation care IV diuretics or other heart failure treatments[C] [ ]b) Cognitive impairment that is severe or persistent [ ]c) Increased creatinine (new on laboratory test) with reduction of more than 50% in estimated glomerular filtration rate from baseline. [ ]d) Acute renal insufficiency (progressively (ongoing) rising creatinine (known from past laboratory test) with reduction of more than 25% in estimated glomerular filtration rate from baseline) [ ]e) Acute peripheral ischemia (eg, pulseless, cool, mottled, or cyanotic extremity) [ ]f) Acute renal failure [ ]g) Supplemental O2 or respiratory treatment for >24 hr that are performable only in acute inpatient setting [ ]h) Pulmonary artery catheter monitoring [ ]i) Other condition, treatment or monitoring requiring inpatient admission [X]IX. Contraindications and/or Inappropriate clinical situations for Observational Care in patients with Heart Failure, when ANY ONE of the following is required: [ ]a) Patient with High risk of cardiac embolism (e.g, patients with previous cardiac embolism, LVEF < 40%, age >75 and patients with prosthetic valve) 18 [ ]b) Patient with Moderate risk including DM patient, CAD and patient aged 65-75 [ ]c) Patient with any change in cardiac biomarker especially troponin should be managed as high risk in an inpatient setting 19 [ ]d) Physician judgement irrespective of ECG and other diagnostic findings 20 [ ]e) Patients with hyponatremia have high risk for mortality and require more extensive care and length of stay 21 [X]f) Need for large volume diuresis 21 [ ]g) Presence of renal insufficiency or hypotension limiting speed of diuresis 21 [ ]h) Acute cardiac Ischemia in the elderly 21 [ ]i) Patients with a 30 day risk of mortality based on a multidimensional prognostic index (MPI) [J,]21 [ ]X. General contraindications and/or Inappropriate clinical situations for Observational Care in patients with Heart Failure, when ANY ONE of the following is required: [ ]a) Prediction of prolongation of LOS based on ANY ONE of the following may be considered as a contraindication for observational care 2, 3, 4, 5, 6, 7, 8 , 9, 10, 11 [ ]i) Age > 65 yrs. [ ]ii) Patient arriving by ambulance [ ]iii) Patient with high acuity [ ]iv) Patient requiring vital sign monitoring [ ]v) Patient on IV medication [ ]b) Systolic blood pressures 180mmHg 3,12 [ ]c) Patient with altered mental status including delirium and other alteration of consciousness, (3) [ ]d) Patient whose discharge disposition will be to a group home home or rehabilitation home should not be managed in Emergency Department Observation Unit. CMS rule requires 3 days hospital stay before such placement.3,13 [ ]e) Patient with failure to thrive due to broad array of etiologies 3,16,17 [ ]f) Inability to ambulate 3,14 Extended stay beyond goal length of stay may be needed for(1)(3)(21)(25): [ ]a) Cardiac ischemia, confirmed or suspected as precipitant [ ]b) Cardiogenic shock or refractory pulmonary edema [ ]c) Acute kidney injury or renal failure [ ]d) Respiratory failure (eg, need for noninvasive or invasive mechanical ventilation) (23) [ ]e) Concomitant pneumonia or significant electrolyte abnormality (eg, severe hyponatremia) [ ]f) Newly diagnosed (new onset) atrial fibrillation [ ]g) Stage IV chronic kidney disease (estimated glomerular filtration rate of less than 30 mL/min/1.73m2 (0.50 mL/sec/1.73m2), and not previously on chronic dialysis The original [facility] content created by [facility] has been revised. The portions of the content which have been revised are identified through the use of italic text or in bold, and [facility] has neither reviewed nor approved the modified material. All other unmodified content is copyright [facility]. Please see references footnoted in the original [facility] edition 2016 Admission Criteria Met?: Yes KLAUDIA NOLAND Sep 28, 2016 23:07
[2016-09-28 23:30] VITALS: BP 111/71
[2016-09-29] MEDS ORDERED: HYDR-2666 PO (00:37)
[2016-09-29 03:35] VITALS: BP 109/78
[2016-09-29 04:47] LABS: BASO % 1 % (0-3); EOS % 3 % (0-3); HEMATOCRIT 45.1 % (39.0-53.0); HEMOGLOBIN 13.9 g/dL (13.0-17.5); LYMPH # 1.4 x10^3/uL (1.0-4.8); LYMPH % 20 % (24-48); MEAN CORPUSCULAR HEMOGLOBIN 30 pg (25-35); MEAN CORPUSCULAR HGB CONC 31 g/dL (31-37); MEAN CORPUSCULAR VOLUME 96 fL (79-100); MONO % 11 % (0-9); NEUT % 66 % (31-73); PLATELET COUNT 210 x10^3/uL (140-400); RED BLOOD COUNT 4.71 x10^6/uL (4.30-5.70); RED CELL DISTRIBUTION WIDTH 15.8 % (11.5-14.5); WHITE BLOOD COUNT 6.9 x10^3/uL (4.0-11.0)
[2016-09-29 05:05] LABS: CREATININE 1.3 mg/dL (0.7-1.3); GFR 55.9; POTASSIUM 4.2 mmol/L (3.5-5.1)
[2016-09-29 07:00] VITALS: BP 103/76
[2016-09-29] MEDS ORDERED: FURO-68 PO (07:39)
--- NOTE | 2016-09-29 07:45 | PDOC ---
PROGRESS NOTES Subjective Subjective Patient reports legs a little better after resting in bed overnight. Denies CP or SOA. Objective Objective Vital Signs Date Time Temp Pulse Resp B/P Pulse Ox O2 Delivery O2 Flow Rate FiO2 09/29/16 03:35 97.8 106 20 109/78 98 Nasal Cannula 2.0 97.8 Intake and Output 09/29/16 07:00 Intake Total 240 ml Output Total 925 ml Balance -685 ml Intake Oral 240 ml Output Urine Total 925 ml Physical Exam Abdomen: Normal bowel sounds, Soft, No tenderness Heart: Regular rate Extremities: Other (2+ pitting edema bilateral LE's to knees) General: Alert, Oriented X3, No acute distress Lungs: Other (BS mildly decreased throughout, scant crackles in bases) Assessment Assessment Problems Medical Problems: (1) Acute exacerbation of CHF (congestive heart failure) Status: Acute (2) CHF exacerbation Status: Acute (3) Troponin level elevated Status: Acute Plan Plan of Care 1. AE CHF with severe cardiomyopathy - symptoms are mainly an increase in his chronic LE edema. Reports he has been taking Lasix 80mg daily, wearing compression hose sometimes. No chest pain. Will increase Lasix to BID and follow his response to this. SANCHEZ hose ordered. Patient has an element of chronic venous insufficiency also. 2. COPD - stable, continue nebs, patient's Spiriva and Symbicort not available here. 3. HTN - continue home meds. 4. DM2 - has been controlled with Metformin, continue. 5. CKD III - renal function good on admission lab. Should be able to tolerate an increase in diuretic tx for the short-term at least. Follow lab. 6. hyperlipidemia - lipids were too tightly controlled on lab during his last admission here so Atorvastatin was decreased to 10mg, continue daily. Comment Review of Relevant I have reviewed the following items jung (where applicable) has been applied. Labs Laboratory Tests Test 09/28/16 19:55 09/28/16 22:20 09/29/16 03:28 White Blood Count 7.8x10^3/uL (4.0-11.0) 6.9x10^3/uL (4.0-11.0) Red Blood Count 4.85x10^6/uL (4.30-5.70) 4.71x10^6/uL (4.30-5.70) Hemoglobin 14.8g/dL (13.0-17.5) 13.9g/dL (13.0-17.5) Hematocrit 46.2% (39.0-53.0) 45.1% (39.0-53.0) Mean Corpuscular Volume 95fL (79-100) 96fL (79-100) Mean Corpuscular Hemoglobin 31pg (25-35) 30pg (25-35) Mean Corpuscular Hemoglobin Concent 32g/dL (31-37) 31g/dL (31-37) Red Cell Distribution Width 15.8% (11.5-14.5) 15.8% (11.5-14.5) Platelet Count 228x10^3/uL (140-400) 210x10^3/uL (140-400) Neutrophils (%) (Auto) 71% (31-73) 66% (31-73) Lymphocytes (%) (Auto) 18% (24-48) 20% (24-48) Monocytes (%) (Auto) 9% (0-9) 11% (0-9) Eosinophils (%) (Auto) 2% (0-3) 3% (0-3) Basophils (%) (Auto) 0% (0-3) 1% (0-3) Neutrophils # (Auto) 5.5x10^3uL (1.8-7.7) 4.6x10^3uL (1.8-7.7) Lymphocytes # (Auto) 1.4x10^3/uL (1.0-4.8) 1.4x10^3/uL (1.0-4.8) Monocytes # (Auto) 0.7x10^3/uL (0.0-1.1) 0.7x10^3/uL (0.0-1.1) Eosinophils # (Auto) 0.1x10^3/uL (0.0-0.7) 0.2x10^3/uL (0.0-0.7) Basophils # (Auto) 0.0x10^3/uL (0.0-0.2) 0.0x10^3/uL (0.0-0.2) Sodium Level 141mmol/L (136-145) 143mmol/L (136-145) Potassium Level 4.1mmol/L (3.5-5.1) 4.2mmol/L (3.5-5.1) Chloride Level 104mmol/L (98-107) 105mmol/L (98-107) Carbon Dioxide Level 26mmol/L (21-32) 29mmol/L (21-32) Anion Gap 11 (6-14) 9 (6-14) Blood Urea Nitrogen 26mg/dL (8-26) 26mg/dL (8-26) Creatinine 1.3mg/dL (0.7-1.3) 1.3mg/dL (0.7-1.3) Estimated GFR (Cockcroft-Gault) 55.9 55.9 Glucose Level 107mg/dL (70-99) 102mg/dL (70-99) Lactic Acid Level 1.2mmol/L (0.4-2.0) Calcium Level 9.1mg/dL (8.5-10.1) 9.0mg/dL (8.5-10.1) Total Bilirubin 0.6mg/dL (0.2-1.0) Direct Bilirubin 0.2mg/dL (0.0-0.2) Aspartate Amino Transf (AST/SGOT) 26U/L (15-37) Alanine Aminotransferase (ALT/SGPT) 28U/L (16-63) Alkaline Phosphatase 78U/L (46-116) Troponin I Quantitative 0.061ng/mL (0.000-0.055) 0.038ng/mL (0.000-0.055) EZ-Vso-X-Type Natriuretic Peptide 6808pg/mL (0-124) Total Protein 7.7g/dL (6.4-8.2) Albumin 3.3g/dL (3.4-5.0) Lipase 110U/L (73-393) Urine Collection Type Unknown Urine Color Yellow Urine Clarity Clear Urine pH 5.5 Urine Specific Ashley 1.010 Urine Protein 30mg/dL (NEG-TRACE) Urine Glucose (UA) Negativemg/dL (NEG) Urine Ketones (Stick) Negativemg/dL (NEG) Urine Blood Negative (NEG) Urine Nitrite Negative (NEG) Urine Bilirubin Negative (NEG) Urine Urobilinogen Dipstick 0.2mg/dL (0.2 mg/dL) Urine Leukocyte Esterase Trace (NEG) Urine RBC 0/HPF (0-2) Urine WBC 1-4/HPF (0-4) Urine Squamous Epithelial Cells None/LPF Urine Bacteria 0/HPF (0-FEW) Urine Hyaline Casts Occasional/HPF Urine Mucus Mod/LPF Laboratory Tests Test 09/28/16 19:55 09/28/16 22:20 09/29/16 03:28 White Blood Count 7.8x10^3/uL (4.0-11.0) 6.9x10^3/uL (4.0-11.0) Red Blood Count 4.85x10^6/uL (4.30-5.70) 4.71x10^6/uL (4.30-5.70) Hemoglobin 14.8g/dL (13.0-17.5) 13.9g/dL (13.0-17.5) Hematocrit 46.2% (39.0-53.0) 45.1% (39.0-53.0) Mean Corpuscular Volume 95fL (79-100) 96fL (79-100) Mean Corpuscular Hemoglobin 31pg (25-35) 30pg (25-35) Mean Corpuscular Hemoglobin Concent 32g/dL (31-37) 31g/dL (31-37) Red Cell Distribution Width 15.8% (11.5-14.5) 15.8% (11.5-14.5) Platelet Count 228x10^3/uL (140-400) 210x10^3/uL (140-400) Neutrophils (%) (Auto) 71% (31-73) 66% (31-73) Lymphocytes (%) (Auto) 18% (24-48) 20% (24-48) Monocytes (%) (Auto) 9% (0-9) 11% (0-9) Eosinophils (%) (Auto) 2% (0-3) 3% (0-3) Basophils (%) (Auto) 0% (0-3) 1% (0-3) Neutrophils # (Auto) 5.5x10^3uL (1.8-7.7) 4.6x10^3uL (1.8-7.7) Lymphocytes # (Auto) 1.4x10^3/uL (1.0-4.8) 1.4x10^3/uL (1.0-4.8) Monocytes # (Auto) 0.7x10^3/uL (0.0-1.1) 0.7x10^3/uL (0.0-1.1) Eosinophils # (Auto) 0.1x10^3/uL (0.0-0.7) 0.2x10^3/uL (0.0-0.7) Basophils # (Auto) 0.0x10^3/uL (0.0-0.2) 0.0x10^3/uL (0.0-0.2) Sodium Level 141mmol/L (136-145) 143mmol/L (136-145) Potassium Level 4.1mmol/L (3.5-5.1) 4.2mmol/L (3.5-5.1) Chloride Level 104mmol/L (98-107) 105mmol/L (98-107) Carbon Dioxide Level 26mmol/L (21-32) 29mmol/L (21-32) Anion Gap 11 (6-14) 9 (6-14) Blood Urea Nitrogen 26mg/dL (8-26) 26mg/dL (8-26) Creatinine 1.3mg/dL (0.7-1.3) 1.3mg/dL (0.7-1.3) Estimated GFR (Cockcroft-Gault) 55.9 55.9 Glucose Level 107mg/dL (70-99) 102mg/dL (70-99) Lactic Acid Level 1.2mmol/L (0.4-2.0) Calcium Level 9.1mg/dL (8.5-10.1) 9.0mg/dL (8.5-10.1) Total Bilirubin 0.6mg/dL (0.2-1.0) Direct Bilirubin 0.2mg/dL (0.0-0.2) Aspartate Amino Transf (AST/SGOT) 26U/L (15-37) Alanine Aminotransferase (ALT/SGPT) 28U/L (16-63) Alkaline Phosphatase 78U/L (46-116) Troponin I Quantitative 0.061ng/mL (0.000-0.055) 0.038ng/mL (0.000-0.055) RD-Ojo-O-Type Natriuretic Peptide 6808pg/mL (0-124) Total Protein 7.7g/dL (6.4-8.2) Albumin 3.3g/dL (3.4-5.0) Lipase 110U/L (73-393) Urine Collection Type Unknown Urine Color Yellow Urine Clarity Clear Urine pH 5.5 Urine Specific Ashley 1.010 Urine Protein 30mg/dL (NEG-TRACE) Urine Glucose (UA) Negativemg/dL (NEG) Urine Ketones (Stick) Negativemg/dL (NEG) Urine Blood Negative (NEG) Urine Nitrite Negative (NEG) Urine Bilirubin Negative (NEG) Urine Urobilinogen Dipstick 0.2mg/dL (0.2 mg/dL) Urine Leukocyte Esterase Trace (NEG) Urine RBC 0/HPF (0-2) Urine WBC 1-4/HPF (0-4) Urine Squamous Epithelial Cells None/LPF Urine Bacteria 0/HPF (0-FEW) Urine Hyaline Casts Occasional/HPF Urine Mucus Mod/LPF Medications Current Medications Albuterol Sulfate (Ventolin Neb Soln) 2.5 mg 1X ONCE NEB Last administered on 09/28/16 20:51; Start 09/28/16 at 20:30; Stop 09/28/16 at 20:32; Status DC Furosemide (Lasix) 40 mg 1X ONCE IVP Last administered on 09/28/16 21:26; Start 09/28/16 at 21:15; Stop 09/28/16 at 21:16; Status DC Ondansetron HCl (Zofran) 4 mg PRN Q8HRS PRN IV NAUSEA/VOMITING; Start 09/28/16 at 21:30; Stop 09/29/16 at 21:29 Morphine Sulfate 2 mg PRN Q2HR PRN IV SEVERE PAIN; Start 09/28/16 at 21:30; Stop 09/29/16 at 21:29 Albuterol/ Ipratropium (Duoneb) 3 ml RTQID NEB ; Start 09/29/16 at 08:00; Stop 09/30/16 at 07:59 Aspirin (Children'S Aspirin) 324 mg 1X ONCE PO Last administered on 09/28/16 22:18; Start 09/28/16 at 22:00; Stop 09/28/16 at 22:01; Status DC Active Scripts Active Lasix (Furosemide) 40 Mg Tablet 80 Mg PO DAILY 30 Days Atorvastatin Calcium 10 Mg Tablet 1 Tab PO DAILY Flomax (Tamsulosin Hcl) 0.4 Mg Cap.er.24h 1 Cap PO HS Metolazone 2.5 Mg Tablet 2.5 Mg PO DAILY Potassium Chloride 20 Meq Tablet.er 10 Meq PO DAILY Reported Hydrocodone-Apap 5-325 (Hydrocodone Bit/Acetaminophen) 1 Each Tablet 1 Tab PO PRN Q6HRS PRN Metoprolol Tartrate 25 Mg Tablet 1 Tab PO BID Proair Hfa Inhaler (Albuterol Sulfate) 8.5 Gm Hfa.aer.ad 2 Puff IH PRN Q2HR PRN Albuterol Sulfate Neb Soln (Albuterol Sulfate) 2.5 Mg/3 Ml Vial.neb 1 Vial NEB PRN Q4HRS Symbicort 160-4.5 Mcg Inhaler (Budesonide/Formoterol Fumarate) 10.2 Gm Hfa.aer.ad 2 Puff IH BID Metformin Hcl 500 Mg Tablet 500 Mg PO BIDWMEALS Spiriva (Tiotropium [place]) 18 Mcg Cap.w.dev 2 Inh IH DAILY05 Aspirin Ec (Aspirin) 81 Mg Tablet. 81 Mg PO DAILY Celexa (Citalopram Hydrobromide) 20 Mg Tablet Unknown Dose PO DAILY Vitals/I & O Vital Sign - Last 24 Hours 09/28/16 09/28/16 09/28/16 09/28/16 19:24 19:40 20:54 21:34 Temp 98.8 98.8 Pulse 111 57 106 Resp 20 B/P 112/80 132/62 115/74 Pulse Ox 98 95 95 O2 Delivery Room Air Room Air Room Air Room Air 09/28/16 09/28/16 09/28/16 09/28/16 22:04 22:34 23:30 23:30 Temp 97.7 97.7 Pulse 113 113 86 Resp 18 B/P 117/75 121/78 111/71 Pulse Ox 96 97 93 O2 Delivery Room Air Room Air Room Air Room Air 09/28/16 09/29/16 23:30 03:35 Temp 97.7 97.8 97.7 97.8 Pulse 86 106 Resp 18 20 B/P 111/71 109/78 Pulse Ox 93 98 O2 Delivery Room Air Nasal Cannula O2 Flow Rate 2.0 Intake and Output 09/28/16 09/28/16 09/29/16 15:00 23:00 07:00 Intake Total 240 ml Output Total 925 ml Balance -685 ml MOOKIE SAGE MD Sep 29, 2016 07:45
[2016-09-29] MEDS: IPRATRPIUM/ALBUTEROL 0.5/2.5MG 3 ML NEBU. NEB SCH ×4 (08:00→19:03)
[2016-09-29] MEDS: BUDESONIDE 0.5 MG/2 ML NEBU. NEB SCH ×2 (08:00→19:03)
--- NOTE | 2016-09-29 08:23 | EKG ---
[facility] [address] [place] [address] Test Date: 2016-09-28 Test Time: 19:45:43 Pat Name: SARAH HERNÁNDEZ Department: Room: 206 1 Gender: M Data Management Consultant: : [id number] Requested By: JUAN MERRILL Order Number: [id number] Reading MD: Radha Pitts Measurements Intervals [place] Rate: 110 P: -8 CO: 132 QRS: 9 QRSD: 100 T: 65 QT: 362 QTc: 496 Interpretive Statements SINUS TACHYCARDIA LEFT ATRIAL ABNORMALITY LOW LIMB LEAD VOLTAGE Electronically Signed On 10-02-2016 13:37:20 CDT by Radha Pitts
--- NOTE | 2016-09-29 08:40 | RAD ---
Portable chest, 09/28/2016: History: Shortness of breath Comparison is made to a study from 08/03/2016. A left-sided transvenous pacemaker remains in place with 2 leads extending into the right heart. The heart is enlarged. The pulmonary vascularity is normal. No pulmonary infiltrates are seen. There is no evidence of pleural fluid. IMPRESSION: 1. Cardiomegaly. 2. No acute abnormality is detected.
[2016-09-29] MEDS: METOLAZONE 2.5 MG TABLET PO SCH (09:00)
[2016-09-29] MEDS ORDERED: NON FORMULARY ITEM (Budesonide/Formoterol Fumarate (Symbicort 160-4.5 Mcg Inhaler) 2 PUFF) IH SCH (09:00)
--- NOTE | 2016-09-29 09:10 | HP ---
ADMIT DATE: 09/29/2016 CHIEF COMPLAINT: Lower extremity edema. HISTORY OF PRESENT ILLNESS: The patient is a 61-year-old male with a history of systolic and diastolic congestive heart failure with severe cardiomyopathy, who presented to the Emergency Room with the above complaint. He reported the onset of increased swelling in his legs for at least a week prior to admission. He had been taking his usual Lasix 80 mg daily and wearing his compression hose some of the time, but this swelling seem to be getting worse, so that it was difficult for him to walk due to the heaviness in his legs. He presented to the Emergency Room. He was given a dose of IV Lasix and admitted for further treatment. PAST MEDICAL HISTORY: Congestive heart failure with severe cardiomyopathy, ejection fraction 20%-25%, coronary artery disease, COPD with ongoing tobaccoism, hypertension, diabetes mellitus type 2, bipolar mood disorder, osteoarthritis, BPH and hyperlipidemia. PAST SURGICAL HISTORY: Umbilical hernia repair, sinus surgery, hemorrhoid surgery, pacemaker placement and melanoma excision in 2013. ALLERGIES: The patient has no known drug allergies. HOME MEDICATIONS: Aspirin 81 mg daily, atorvastatin 10 mg daily, Symbicort 160/4.5 two puffs b.i.d., citalopram 20 mg daily, Lasix 40 mg 2 tablets daily, metformin 500 mg b.i.d., metolazone 2.5 mg daily, metoprolol tartrate 25 mg b.i.d., potassium 10 mEq daily, Flomax 0.4 mg daily and Spiriva 2 puffs daily. FAMILY HISTORY: Noncontributory. SOCIAL HISTORY: The patient is single, but lives with his girlfriend and she is active in his care. He has a long smoking history, but is trying to decrease this and states that he only smokes 3-5 cigarettes daily now. He does drink alcohol, but denies drinking to excess. He is disabled due to his cardiac condition. REVIEW OF SYSTEMS: The patient denies fever or chills. He denies chest pain or palpitations. He has some chronic cough and dyspnea, which has now worsened recently. He does his nebulizer treatments several times daily and feels that this helps loosened up his secretions and clear his chest. The patient denies abdominal pain, nausea or vomiting. He has been taking his Flomax, but sometimes feels it is difficult to pass his urine. At other times, he is able to urinate without difficulty. His mood has been fairly good with his usual medications, although he is frustrated by the limitations in his activities due to his lower extremity edema. PHYSICAL EXAMINATION: GENERAL: The patient is alert and oriented x 3, resting comfortably in bed, in no acute distress. HEENT: PERRL, EOMI, sclerae clear. Oropharynx: Mucous membranes moist. NECK: Supple, without lymphadenopathy. CHEST: Breath sounds mildly decreased throughout. Scant crackles in the bases, otherwise clear to auscultation. No wheezes heard. CARDIOVASCULAR: Regular rhythm without murmur. ABDOMEN: Soft, nontender, normoactive bowel sounds are present. EXTREMITIES: Show 2+ pitting edema bilaterally to the knees. ASSESSMENT AND PLAN: 1. Acute exacerbation of congestive heart failure with severe cardiomyopathy. The patient's troponin is only mildly elevated, but he has not experienced any chest pain. We will increase his Lasix to 80 mg b.i.d. and follow his response to this. SANCHEZ hose are also ordered for him. The patient does have an element of chronic venous insufficiency and some level of edema in his legs will be chronic for him. 2. Chronic obstructive pulmonary disease. This appears stable. Continue nebulized treatments. His Spiriva and Symbicort are not available here. 3. Hypertension. Continue home medications. 4. Diabetes mellitus type 2. This has been controlled with metformin, continue this and an ADA diet. 5. Chronic kidney disease stage 3. The patient's renal function appears good on admission lab. He should be able to tolerate an increase in his diuretic treatment at least for the short term. We will follow his lab on this. 6. Hyperlipidemia. The patient's cholesterol was too tightly controlled on lab during his last admission, so his atorvastatin was decreased to 10 mg daily. We will continue this. MOOKIE SAGE MD DR: SHIELA/elder JOB#: [id number] / [id number] JEFFERY
--- NOTE | 2016-09-29 09:15 | PDOC2 ---
CARDIAC CONSULT DATE OF CONSULT Date of Consult DATE: 09/29/16 TIME: 09:01 REASON FOR CONSULT Reason for Consult: CHF REFERRING PHYSICIAN Referring Physician: Frieda SOURCE Source: Chart review, Patient HISTORY OF PRESENT ILLNESS HISTORY OF PRESENT ILLNESS This is a pleasant 61 yo male admitted for complains for SOA and leg swelling. This has been going on for a while and started to feeling increased about 2-3 weeks ago. Reports additional; symptoms of increasing orthopnea, PND despite use of CPAP and much more edematous LE. Denies any decreased in appetite and denies any tightening or feeling of distension to abdominal girth. Positive for increasing GROVE and also has been increasingly developing increased productive white sputum. Verbalized that his lasix have been adjusted and been titrated up from 40 mg bid but unsure the time frame of his adjustment. He has been drking about 2.5 L daily approximate but could not confirm diet compliance. He does use tobacco still and has been smoking since he was 12 yo. Otherwise he does take his cardiac meds regularly. Denies CP, nausea, vomiting, fever or chills. PAST MEDICAL HISTORY Past Medical History Cardiovascular: CAD (mild non-obstructive disease on cath 04/2014), CHF ( chronic systolic), HTN, Hyperlipidemia, NICM Pulmonary: COPD (with chronic oxygen use), COMFORT/CPAP use Psych: Bipolar Musculoskeletal: OA ENT: Allergic Rhinitis Renal/: Chronic renal insuff Endocrine: Diabetes (type II) Dermatology: Melanoma PAST SURGICAL HISTORY Past Surgical History Pacemaker ([employer] ICD; excision of melanoma), Hernia Repair (umbilical ), sinus surgery, hemorrhoid surgery, C FAMILY HISTORY Family History Noncontributory to CV SOCIAL HISTORY Social History Smoke: <1 pack per day ALCOHOL: Yes Lives: with Family CURRENT MEDICATIONS CURRENT MEDICATIONS Current Medications Medications (Trade) Dose Ordered Sig/Syeda Route PRN Reason Start Time Stop Time Status Last Admin Dose Admin Albuterol Sulfate (Ventolin Neb Soln) 2.5 mg 1X ONCE NEB 09/28/16 20:30 09/28/16 20:32 DC 09/28/16 20:51 Furosemide (Lasix) 40 mg 1X ONCE IVP 09/28/16 21:15 09/28/16 21:16 DC 09/28/16 21:26 Aspirin (Children'S Aspirin) 324 mg 1X ONCE PO 09/28/16 22:00 09/28/16 22:01 DC 09/28/16 22:18 ALLERGIES ALLERGIES: Coded Allergies: No Known Drug Allergies (Unverified , 08/03/16) ROS Review of System 14 point ROS evaluated with pertinent positives noted per HPI PHYSICAL EXAM General: Alert, Oriented X3, Cooperative, No acute distress HEENT: Atraumatic, Mucous membr. moist/pink, Other (JVD) Lungs: Other (bibasilar crackles) Heart: Regular rate (SR no significant ectopies overnight), Normal S1, Normal S2, Other (S4, diffuse 3/6 systolic murmur) Extremities: No cyanosis, Other (4+ bilateral LE pitting edema; possible ascites) Skin: No breakdown, No significant lesion Neuro: Normal speech, Sensation intact Psych/Mental Status: Mental status NL, Mood NL MUSCULOSKELETAL: Osteoarthritic changes both hands VITALS VITALS Vital Signs Date Time Temp Pulse Resp B/P Pulse Ox O2 Delivery O2 Flow Rate FiO2 09/29/16 07:00 97.3 103 17 103/76 98 Room Air 97.3 09/29/16 03:35 2.0 LABS Lab: Laboratory Tests Test 09/28/16 19:55 09/28/16 22:20 09/29/16 03:28 White Blood Count 7.8x10^3/uL (4.0-11.0) 6.9x10^3/uL (4.0-11.0) Red Blood Count 4.85x10^6/uL (4.30-5.70) 4.71x10^6/uL (4.30-5.70) Hemoglobin 14.8g/dL (13.0-17.5) 13.9g/dL (13.0-17.5) Hematocrit 46.2% (39.0-53.0) 45.1% (39.0-53.0) Mean Corpuscular Volume 95fL (79-100) 96fL (79-100) Mean Corpuscular Hemoglobin 31pg (25-35) 30pg (25-35) Mean Corpuscular Hemoglobin Concent 32g/dL (31-37) 31g/dL (31-37) Red Cell Distribution Width 15.8% (11.5-14.5) 15.8% (11.5-14.5) Platelet Count 228x10^3/uL (140-400) 210x10^3/uL (140-400) Neutrophils (%) (Auto) 71% (31-73) 66% (31-73) Lymphocytes (%) (Auto) 18% (24-48) 20% (24-48) Monocytes (%) (Auto) 9% (0-9) 11% (0-9) Eosinophils (%) (Auto) 2% (0-3) 3% (0-3) Basophils (%) (Auto) 0% (0-3) 1% (0-3) Neutrophils # (Auto) 5.5x10^3uL (1.8-7.7) 4.6x10^3uL (1.8-7.7) Lymphocytes # (Auto) 1.4x10^3/uL (1.0-4.8) 1.4x10^3/uL (1.0-4.8) Monocytes # (Auto) 0.7x10^3/uL (0.0-1.1) 0.7x10^3/uL (0.0-1.1) Eosinophils # (Auto) 0.1x10^3/uL (0.0-0.7) 0.2x10^3/uL (0.0-0.7) Basophils # (Auto) 0.0x10^3/uL (0.0-0.2) 0.0x10^3/uL (0.0-0.2) Sodium Level 141mmol/L (136-145) 143mmol/L (136-145) Potassium Level 4.1mmol/L (3.5-5.1) 4.2mmol/L (3.5-5.1) Chloride Level 104mmol/L (98-107) 105mmol/L (98-107) Carbon Dioxide Level 26mmol/L (21-32) 29mmol/L (21-32) Anion Gap 11 (6-14) 9 (6-14) Blood Urea Nitrogen 26mg/dL (8-26) 26mg/dL (8-26) Creatinine 1.3mg/dL (0.7-1.3) 1.3mg/dL (0.7-1.3) Estimated GFR (Cockcroft-Gault) 55.9 55.9 Glucose Level 107mg/dL (70-99) 102mg/dL (70-99) Lactic Acid Level 1.2mmol/L (0.4-2.0) Calcium Level 9.1mg/dL (8.5-10.1) 9.0mg/dL (8.5-10.1) Total Bilirubin 0.6mg/dL (0.2-1.0) Direct Bilirubin 0.2mg/dL (0.0-0.2) Aspartate Amino Transf (AST/SGOT) 26U/L (15-37) Alanine Aminotransferase (ALT/SGPT) 28U/L (16-63) Alkaline Phosphatase 78U/L (46-116) Troponin I Quantitative 0.061ng/mL (0.000-0.055) 0.038ng/mL (0.000-0.055) LB-Ysb-C-Type Natriuretic Peptide 6808pg/mL (0-124) Total Protein 7.7g/dL (6.4-8.2) Albumin 3.3g/dL (3.4-5.0) Lipase 110U/L (73-393) Urine Collection Type Unknown Urine Color Yellow Urine Clarity Clear Urine pH 5.5 Urine Specific [place] 1.010 Urine Protein 30mg/dL (NEG-TRACE) Urine Glucose (UA) Negativemg/dL (NEG) Urine Ketones (Stick) Negativemg/dL (NEG) Urine Blood Negative (NEG) Urine Nitrite Negative (NEG) Urine Bilirubin Negative (NEG) Urine Urobilinogen Dipstick 0.2mg/dL (0.2 mg/dL) Urine Leukocyte Esterase Trace (NEG) Urine RBC 0/HPF (0-2) Urine WBC 1-4/HPF (0-4) Urine Squamous Epithelial Cells None/LPF Urine Bacteria 0/HPF (0-FEW) Urine Hyaline Casts Occasional/HPF Urine Mucus Mod/LPF ECHOCARDIOGRAM ECHOCARDIOGRAM <Conclusion> Left ventricle systolic function is severely impaired. The Ejection Fraction is estimated at 20-25%. Pacer wire noted in right atrium and right ventricle. Mild to moderate aortic regurgitation. Mild to moderate mitral regurgitation. Mild tricuspid regurgitation. The PA pressure was estimated at 38 mmHg. There is no evidence of significant pericardial effusion. DATE: 04/07/16 124 HEART CATH HEART CATH <Conclusion> Mild coronary artery disease. Severely decreased left ventricular systolic function. Mild to moderate aortic insufficiency. DATE: 04/23/14 1502 CONCLUSION Successful implantation of [employer] dual-chamber automatic implantable cardioverter defibrillator for primary prevention of sudden cardiac in a patient with severe nonischemic cardiomyopathy with LVEF 20%. Defibrillation thresholds were measured at the time of implantation. DATE: 05/14/14 1125 ASSESSMENT/PLAN ASSESSMENT/PLAN 1. Acute on chronic systolic CHF: peaked trop 0.061 demand mediated. EKG sinus tach without significant changes. 2. NICM: NYHA 2-3. Last EF 20-25% 3. AICD in situ: ([employer]) recent interrogation 09/13/2016- baseline impedance 632 ohm with recent at 605 ohm. No AFIB/VT/VF. Daily HR 111. 4. AECOPD: defer to PCP. Has O2 at home for PRN but has not been using it. Defer to PCP 5. COMFORT: uses CPAP at home 6. CAD: mild non-obstructive. stable. CP free 7. HTN: well controlled 8. HLD 9. CKD: suspect baseline stage 3. 10. PAD: 50% RSFA via recent duplex, no claudications 11. Continued tobaccoism Recommendations 1. Repeat TTE. Interrogate device today and note thoracic impedance 2. Continue home cardiac regimen/secondary prevention 3. Continue with diuretic therapy. prior wt in the 180s and currently 200 lb. 4. Triggers include increased po hydration, possible med noncompliance as well as lifetyle changes. Encouraged smoking cessation 5. 1500 FR, strict I & O. 6. TSH, PCXR today Problems: JOSE HWANG [employer]MENT REMOVER Sep 29, 2016 09:15
[2016-09-29] MEDS: ATORVASTATIN CALCIUM 10 MG TABLET. PO SCH (10:37)
[2016-09-29] MEDS: ASPIRIN ENTERIC COATED 81 MG TABLET.DR. PO SCH (10:37)
[2016-09-29] MEDS: METOPROLOL TART IMMED RELEASE 25 MG TABLET. PO SCH ×2 (10:38→21:01)
[2016-09-29] MEDS: CITALOPRAM 20 MG TABLET. PO SCH (10:38)
[2016-09-29] MEDS: POTASSIUM CHLORIDE 10 MEQ TABLET.ER. PO SCH (10:38)
[2016-09-29] MEDS: METFORMIN 500 MG TABLET. PO SCH ×2 (10:38→18:07)
[2016-09-29] MEDS: FUROSEMIDE 100 MG/10 ML VIAL. IVP SCH ×2 (10:39→14:59)
[2016-09-29] MEDS: HYDROCODONE/APAP 5/325MG TABLET. PO PRN ×2 (10:43→18:07)
[2016-09-29 11:00] VITALS: BP 111/58
--- NOTE | 2016-09-29 13:31 | CARD ---
APPROVED REPORT EXAM: Two-dimensional and M-mode echocardiogram with Doppler and color Doppler. Other Information Quality : Average Rhythm : Pacemaker INDICATION Cardiomyopathy Congestive Heart Failure 2D DIMENSIONS RVDd4.0 (2.9-3.5cm)Left Atrium(2D)4.9 (1.6-4.0cm) IVSd1.0 (0.7-1.1cm)Aortic Root(2D)3.0 (2.0-3.7cm) LVDd7.1 (3.9-5.9cm)LVOT Diameter2.3 (1.8-2.4cm) PWd1.0 (0.7-1.1cm)LVDs6.3 (2.5-4.0cm) SV59.3 mlLVEF(%)20.7 (>50%) Aortic Valve AoV Peak Ab.81.0cm/sAoV VTI10.0cm AO Peak GR.2.6mmHgLVOT Peak Ab.48.7cm/s LVOT VTI 6.23cmAO Mean GR.1mmHg EZEQUIEL (VMAX)2.46pp8HOG (VTI)2.50cm2 Mitral Valve MV E Peak Gr.78mmHgMV DECEL [id number] MV E Mean Gr.2mmHgMV [id number] MVA (PHT)3.78cm2 Pulmonary Valve RVOT VTI4.0cm Tricuspid Valve TR P. [id number]/sRAP [id number] TR Peak Gr.[id number] LEFT VENTRICLE The Left Ventricle is moderately dilated. There is normal left ventricular wall thickness. Left ventr icle systolic function is severely impaired. The Ejection Fraction is 15-20%. There is severe global hypokinesis of the left ventricle. Uanble to assess diastolic function. RIGHT VENTRICLE The right ventricle is moderately dilated. Systolic function appears reduced. There is a pacemaker/IC D lead seen in the RV/RA. ATRIA The left atrium is moderately dilated. The right atrium appears moderately dilated. The interatrial s eptum is intact with no evidence for an atrial septal defect or patent foramen ovale as noted on 2-D or Doppler imaging. AORTIC VALVE The aortic valve is normal in structure. The aortic valve is trileaflet. Doppler and Color Flow revea led mild aortic regurgitation. There is no significant aortic valvular stenosis. MITRAL VALVE The mitral valve leaflets are thickened. There is no mitral valve stenosis. Doppler and Color Flow re vealed moderate to severe mitral regurgitation. TRICUSPID VALVE The tricuspid valve is normal in structure and function. Doppler and Color Flow revealed moderate tri cuspid regurgitation. The PA pressure was estimated at 56 mmHg. There is no tricuspid valve stenosis. PULMONIC VALVE The pulmonic valve is not well visualized. Doppler and Color Flow revealed no pulmonic valvular regur gitation. There is no pulmonic valvular stenosis. GREAT VESSELS The aortic root is normal in size. Pulmonary veins not recorded. The IVC is normal in size and collap ses >50% with inspiration. PERICARDIAL EFFUSION There is no evidence of significant pericardial effusion. Critical Notification Date: 09/29/2016 Time: 12:17 Other Discipline : Charo Barrett APRN Critical Value: Yes <Conclusion> The Left Ventricle is moderately dilated. Left ventricle systolic function is severely impaired. The Ejection Fraction is 15-20%. There is severe global hypokinesis of the left ventricle. The left atrium is moderately dilated. There is no significant aortic valvular stenosis. Doppler and Color Flow revealed mild aortic regurgitation. Doppler and Color Flow revealed moderate to severe mitral regurgitation. Doppler and Color Flow revealed moderate tricuspid regurgitation. The PA pressure was estimated at 56 mmHg.
--- NOTE | 2016-09-29 14:36 | RAD ---
Portable chest, 09/29/2016: History: CHF, COPD Comparison is made to a study from 09/28/2016. A left-sided transvenous pacemaker remains in place with 2 leads extending into the right heart. The heart is enlarged. The pulmonary vascularity is within normal limits. No pulmonary infiltrates are seen. There is no evidence of pleural fluid. IMPRESSION: 1. Cardiomegaly. 2. No acute pulmonary infiltrates.
[2016-09-29 15:00] VITALS: BP 103/63
[2016-09-29 19:00] VITALS: BP 116/83
[2016-09-29] MEDS: TAMSULOSIN 0.4 MG CAP.ER.24H. PO SCH (21:01)
[2016-09-29 23:00] VITALS: BP 95/74
[2016-09-30 03:05] VITALS: BP 114/75
[2016-09-30 04:16] LABS: CALCIUM 9.1 mg/dL (8.5-10.1); CREATININE 1.5 mg/dL (0.7-1.3); GFR 47.4; POTASSIUM 4.6 mmol/L (3.5-5.1)
[2016-09-30] MEDS: HYDROCODONE/APAP 5/325MG TABLET. PO PRN ×2 (05:42→23:11)
[2016-09-30 07:00] VITALS: BP 104/78
[2016-09-30] MEDS: ATORVASTATIN CALCIUM 10 MG TABLET. PO SCH (08:29)
[2016-09-30] MEDS: ASPIRIN ENTERIC COATED 81 MG TABLET.DR. PO SCH (08:29)
[2016-09-30] MEDS: METFORMIN 500 MG TABLET. PO SCH ×2 (08:30→17:00)
[2016-09-30] MEDS: POTASSIUM CHLORIDE 10 MEQ TABLET.ER. PO SCH (08:30)
[2016-09-30] MEDS: METOLAZONE 2.5 MG TABLET PO SCH (08:31)
[2016-09-30] MEDS: FUROSEMIDE 100 MG/10 ML VIAL. IVP SCH ×2 (08:31→14:01)
[2016-09-30] MEDS: METOPROLOL TART IMMED RELEASE 25 MG TABLET. PO SCH ×2 (08:31→20:56)
[2016-09-30] MEDS: CITALOPRAM 20 MG TABLET. PO SCH (08:32)
--- NOTE | 2016-09-30 09:15 | PDOC ---
PROGRESS NOTES Subjective Subjective Patient reports legs don't seem any better to him. Request muscle relaxer to help with chronic neck and back pain. Objective Objective Vital Signs Date Time Temp Pulse Resp B/P Pulse Ox O2 Delivery O2 Flow Rate FiO2 09/30/16 08:31 105 104/78 09/30/16 08:22 Room Air 09/30/16 07:00 97.8 21 96 97.8 09/29/16 03:35 2.0 Intake and Output 09/30/16 07:00 Intake Total 2640 ml Output Total 2450 ml Balance 190 ml Intake Oral 2640 ml Output Urine Total 2450 ml # Voids 2 Physical Exam Abdomen: Normal bowel sounds, Soft, No tenderness Heart: Regular rate Extremities: Other (3+ pitting edema bilaterally to knees, no SANCHEZ hose on) General: Alert, Oriented X3, No acute distress Lungs: Other (BS decreased throughout but otherwise CTA) Assessment Assessment Problems Medical Problems: (1) Acute exacerbation of CHF (congestive heart failure) Status: Acute (2) CHF exacerbation Status: Acute (3) Troponin level elevated Status: Acute Plan Plan of Care 1. AE CHF with severe cardiomyopathy - stable. No significant diuresis per I's and O's. Echo shows EF a little worse than previously at 15-20%. CXR clear. Continue present tx. 2. HTN - controlled, continue present meds. 3. DM2 - well controlled, continue Metformin. 4. COPD - stable, continue nebs. 5. chronic back pain - stable, continue [place], add Robaxin prn. 6. CKD III - creatinine mildly elevated on lab, continue to check daily and decrease diuretics if needed. Comment Review of Relevant I have reviewed the following items jung (where applicable) has been applied. Labs Laboratory Tests Test 09/28/16 19:55 09/28/16 22:20 09/29/16 03:28 09/29/16 09:05 White Blood Count 7.8x10^3/uL (4.0-11.0) 6.9x10^3/uL (4.0-11.0) Red Blood Count 4.85x10^6/uL (4.30-5.70) 4.71x10^6/uL (4.30-5.70) Hemoglobin 14.8g/dL (13.0-17.5) 13.9g/dL (13.0-17.5) Hematocrit 46.2% (39.0-53.0) 45.1% (39.0-53.0) Mean Corpuscular Volume 95fL (79-100) 96fL (79-100) Mean Corpuscular Hemoglobin 31pg (25-35) 30pg (25-35) Mean Corpuscular Hemoglobin Concent 32g/dL (31-37) 31g/dL (31-37) Red Cell Distribution Width 15.8% (11.5-14.5) 15.8% (11.5-14.5) Platelet Count 228x10^3/uL (140-400) 210x10^3/uL (140-400) Neutrophils (%) (Auto) 71% (31-73) 66% (31-73) Lymphocytes (%) (Auto) 18% (24-48) 20% (24-48) Monocytes (%) (Auto) 9% (0-9) 11% (0-9) Eosinophils (%) (Auto) 2% (0-3) 3% (0-3) Basophils (%) (Auto) 0% (0-3) 1% (0-3) Neutrophils # (Auto) 5.5x10^3uL (1.8-7.7) 4.6x10^3uL (1.8-7.7) Lymphocytes # (Auto) 1.4x10^3/uL (1.0-4.8) 1.4x10^3/uL (1.0-4.8) Monocytes # (Auto) 0.7x10^3/uL (0.0-1.1) 0.7x10^3/uL (0.0-1.1) Eosinophils # (Auto) 0.1x10^3/uL (0.0-0.7) 0.2x10^3/uL (0.0-0.7) Basophils # (Auto) 0.0x10^3/uL (0.0-0.2) 0.0x10^3/uL (0.0-0.2) Sodium Level 141mmol/L (136-145) 143mmol/L (136-145) Potassium Level 4.1mmol/L (3.5-5.1) 4.2mmol/L (3.5-5.1) Chloride Level 104mmol/L (98-107) 105mmol/L (98-107) Carbon Dioxide Level 26mmol/L (21-32) 29mmol/L (21-32) Anion Gap 11 (6-14) 9 (6-14) Blood Urea Nitrogen 26mg/dL (8-26) 26mg/dL (8-26) Creatinine 1.3mg/dL (0.7-1.3) 1.3mg/dL (0.7-1.3) Estimated GFR (Cockcroft-Gault) 55.9 55.9 Glucose Level 107mg/dL (70-99) 102mg/dL (70-99) Lactic Acid Level 1.2mmol/L (0.4-2.0) Calcium Level 9.1mg/dL (8.5-10.1) 9.0mg/dL (8.5-10.1) Total Bilirubin 0.6mg/dL (0.2-1.0) Direct Bilirubin 0.2mg/dL (0.0-0.2) Aspartate Amino Transf (AST/SGOT) 26U/L (15-37) Alanine Aminotransferase (ALT/SGPT) 28U/L (16-63) Alkaline Phosphatase 78U/L (46-116) Troponin I Quantitative 0.061ng/mL (0.000-0.055) 0.038ng/mL (0.000-0.055) 0.036ng/mL (0.000-0.055) BK-Vny-Q-Type Natriuretic Peptide 6808pg/mL (0-124) Total Protein 7.7g/dL (6.4-8.2) Albumin 3.3g/dL (3.4-5.0) Lipase 110U/L (73-393) Urine Collection Type Unknown Urine Color Yellow Urine Clarity Clear Urine pH 5.5 Urine Specific [place] 1.010 Urine Protein 30mg/dL (NEG-TRACE) Urine Glucose (UA) Negativemg/dL (NEG) Urine Ketones (Stick) Negativemg/dL (NEG) Urine Blood Negative (NEG) Urine Nitrite Negative (NEG) Urine Bilirubin Negative (NEG) Urine Urobilinogen Dipstick 0.2mg/dL (0.2 mg/dL) Urine Leukocyte Esterase Trace (NEG) Urine RBC 0/HPF (0-2) Urine WBC 1-4/HPF (0-4) Urine Squamous Epithelial Cells None/LPF Urine Bacteria 0/HPF (0-FEW) Urine Hyaline Casts Occasional/HPF Urine Mucus Mod/LPF Magnesium Level 2.2mg/dL (1.8-2.4) Thyroid Stimulating Hormone (TSH) 1.851uIU/mL (0.358-3.74) Test 09/29/16 12:04 09/29/16 21:36 09/30/16 03:35 Glucose (Fingerstick) 135mg/dL (70-99) 114mg/dL (70-99) Sodium Level 142mmol/L (136-145) Potassium Level 4.6mmol/L (3.5-5.1) Chloride Level 105mmol/L (98-107) Carbon Dioxide Level 28mmol/L (21-32) Anion Gap 9 (6-14) Blood Urea Nitrogen 32mg/dL (8-26) Creatinine 1.5mg/dL (0.7-1.3) Estimated GFR (Cockcroft-Gault) 47.4 Glucose Level 115mg/dL (70-99) Calcium Level 9.1mg/dL (8.5-10.1) Magnesium Level 2.4mg/dL (1.8-2.4) Laboratory Tests Test 09/29/16 12:04 09/29/16 21:36 09/30/16 03:35 Glucose (Fingerstick) 135mg/dL (70-99) 114mg/dL (70-99) Sodium Level 142mmol/L (136-145) Potassium Level 4.6mmol/L (3.5-5.1) Chloride Level 105mmol/L (98-107) Carbon Dioxide Level 28mmol/L (21-32) Anion Gap 9 (6-14) Blood Urea Nitrogen 32mg/dL (8-26) Creatinine 1.5mg/dL (0.7-1.3) Estimated GFR (Cockcroft-Gault) 47.4 Glucose Level 115mg/dL (70-99) Calcium Level 9.1mg/dL (8.5-10.1) Magnesium Level 2.4mg/dL (1.8-2.4) Microbiology 09/28/16 Urine Culture - Preliminary, Resulted 09/28/16 Urine Culture Result 1 (CRISTINA) - Preliminary, Resulted Medications Current Medications Albuterol Sulfate (Ventolin Neb Soln) 2.5 mg 1X ONCE NEB Last administered on 09/28/16 20:51; Start 09/28/16 at 20:30; Stop 09/28/16 at 20:32; Status DC Furosemide (Lasix) 40 mg 1X ONCE IVP Last administered on 09/28/16 21:26; Start 09/28/16 at 21:15; Stop 09/28/16 at 21:16; Status DC Ondansetron HCl (Zofran) 4 mg PRN Q8HRS PRN IV NAUSEA/VOMITING; Start 09/28/16 at 21:30; Stop 09/29/16 at 21:29; Status DC Morphine Sulfate 2 mg PRN Q2HR PRN IV SEVERE PAIN; Start 09/28/16 at 21:30; Stop 09/29/16 at 21:29; Status DC Albuterol/ Ipratropium (Duoneb) 3 ml RTQID NEB ; Start 09/29/16 at 08:00; Stop 09/30/16 at 07:59; Status DC Aspirin (Children'S Aspirin) 324 mg 1X ONCE PO Last administered on 09/28/16 22:18; Start 09/28/16 at 22:00; Stop 09/28/16 at 22:01; Status DC Aspirin (Ecotrin) 81 mg DAILY PO Last administered on 09/30/16 08:29; Start at 09:00 Atorvastatin Calcium (Lipitor) 10 mg DAILY PO Last administered on 09/30/16 08 :29; Start 09/29/16 at 09:00 Citalopram Hydrobromide (Celexa) 20 mg DAILY PO Last administered on 09/29/16 10:38; Start 09/29/16 at 09:00 Acetaminophen/ Hydrocodone Bitart (Lortab 5/325) 1 tab PRN Q6HRS PRN PO PAIN Last administered on 09/30/16 05:42; Start 09/29/16 at 07:45 Metformin HCl (Glucophage) 500 mg BIDWMEALS PO Last administered on 09/30/16 08:30; Start 09/29/16 at 08:00 Metolazone (Zaroxolyn) 2.5 mg DAILY PO Last administered on 09/30/16 08:31; Start 09/29/16 at 09:00 Metoprolol Tartrate (Lopressor) 25 mg BID PO Last administered on 09/30/16 08: 31; Start 09/29/16 at 09:00 Tamsulosin HCl (Flomax) 0.4 mg HS PO Last administered on 09/29/16 21:01; Start 09/29/16 at 21:00 Non-Formulary Medication 2 puff BID IH ; Start 09/29/16 at 09:00; Status UNV Potassium Chloride (Klor-Con) 10 meq DAILYWBKFT PO Last administered on 08:30; Start 09/29/16 at 08:00 Furosemide (Lasix) 80 mg BID92 IVP Last administered on 09/30/16 08:31; Start 09/29/16 at 09:00 Budesonide (Pulmicort) 0.5 mg RTBID NEB ; Start 09/29/16 at 08:00; Stop at 08:13; Status DC Active Scripts Active Lasix (Furosemide) 40 Mg Tablet 80 Mg PO DAILY 30 Days Atorvastatin Calcium 10 Mg Tablet 1 Tab PO DAILY Flomax (Tamsulosin Hcl) 0.4 Mg Cap.er.24h 1 Cap PO HS Metolazone 2.5 Mg Tablet 2.5 Mg PO DAILY Potassium Chloride 20 Meq Tablet.er 10 Meq PO DAILY Reported Hydrocodone-Apap 5-325 (Hydrocodone Bit/Acetaminophen) 1 Each Tablet 1 Tab PO PRN Q6HRS PRN Metoprolol Tartrate 25 Mg Tablet 1 Tab PO BID Proair Hfa Inhaler (Albuterol Sulfate) 8.5 Gm Hfa.aer.ad 2 Puff IH PRN Q2HR PRN Albuterol Sulfate Neb Soln (Albuterol Sulfate) 2.5 Mg/3 Ml Vial.neb 1 Vial NEB PRN Q4HRS Symbicort 160-4.5 Mcg Inhaler (Budesonide/Formoterol Fumarate) 10.2 Gm Hfa.aer.ad 2 Puff IH BID Metformin Hcl 500 Mg Tablet 500 Mg PO BIDWMEALS Spiriva (Tiotropium [place]) 18 Mcg Cap.w.dev 2 Inh IH DAILY05 Aspirin Ec (Aspirin) 81 Mg Tablet.dr 81 Mg PO DAILY Celexa (Citalopram Hydrobromide) 20 Mg Tablet Unknown Dose PO DAILY Vitals/I & O Vital Sign - Last 24 Hours 09/29/16 09/29/16 09/29/16 09/29/16 10:38 10:43 11:00 15:00 Temp 97.7 97.9 97.7 97.9 Pulse 103 107 102 Resp B/P 103/76 111/58 103/63 Pulse Ox 98 96 97 O2 Delivery Room Air Room Air Room Air 09/29/16 09/29/16 09/29/16 09/29/16 18:07 19:00 19:07 20:00 Temp 97.6 97.6 Pulse 102 Resp B/P 116/83 Pulse Ox 97 93 97 O2 Delivery Room Air Room Air Room Air 09/29/16 09/29/16 09/30/16 09/30/16 21:01 23:00 03:05 07:00 Temp 97.7 97.8 97.8 97.7 97.8 97.8 Pulse 102 98 103 105 Resp B/P 116/83 95/74 114/75 104/78 Pulse Ox 97 95 96 O2 Delivery Room Air Room Air Room Air 09/30/16 09/30/16 08:22 08:31 Pulse 105 B/P 104/78 O2 Delivery Room Air Intake and Output 09/29/16 09/29/16 09/30/16 15:00 23:00 07:00 Intake Total 1800 ml 840 ml Output Total 1550 ml 900 ml Balance 250 ml -60 ml MOOKIE SAGE MD Sep 30, 2016 09:15
[2016-09-30] MEDS: METHOCARBAMOL 750 MG TABLET PO PRN (10:36)
[2016-09-30 10:49] VITALS: BP 106/82
--- NOTE | 2016-09-30 12:52 | PDOC ---
CARDIO Progress Notes Date and Time Date of Service 09/30/16 Time of Evaluation 1100 Subjective Subjective: No Chest Pain, No shortness of breath Vitals Vitals Vital Signs Date Time Temp Pulse Resp B/P Pulse Ox O2 Delivery O2 Flow Rate FiO2 09/30/16 10:49 97.6 101 22 106/82 96 Room Air 97.6 Weight Weight [ ] Input and Output Intake and Output Intake and Output 09/30/16 07:00 Intake Total 2640 ml Output Total 2450 ml Balance 190 ml Intake Oral 2640 ml Output Urine Total 2450 ml # Voids 2 Laboratory Labs Laboratory Tests Test 09/29/16 21:36 09/30/16 03:35 09/30/16 10:43 Glucose (Fingerstick) 114mg/dL (70-99) 143mg/dL (70-99) Sodium Level 142mmol/L (136-145) Potassium Level 4.6mmol/L (3.5-5.1) Chloride Level 105mmol/L (98-107) Carbon Dioxide Level 28mmol/L (21-32) Anion Gap 9 (6-14) Blood Urea Nitrogen 32mg/dL (8-26) Creatinine 1.5mg/dL (0.7-1.3) Estimated GFR (Cockcroft-Gault) 47.4 Glucose Level 115mg/dL (70-99) Calcium Level 9.1mg/dL (8.5-10.1) Magnesium Level 2.4mg/dL (1.8-2.4) Microbiology Micro Microbiology 09/28/16 Urine Culture - Preliminary, Resulted 09/28/16 Urine Culture Result 1 (CRISTINA) - Preliminary, Resulted Physical Exam HEENT: Neck Supple W Full Motion Chest: Symmetric LUNGS: Clear to Auscultation, Other (diminished bases ) Heart: S1S2, RRR, murmurs (3/6 systolic murmur ) Abdomen: Soft N/T Extremities: Other (2+ bilateral LE pitting edema ) Neurology: alert, oriented, follow commands Plan Plan 1. Acute on chronic systolic CHF improved, but edema persists CXR without sig pleural fluid. neg 2L over last 24hrs. Keep I < O. continue diuresis with close monitoring of renal function 2. NICM s/o AICD; interrogation with normal function. No AFIB/VT/VF. 2D echo 10/16 with an EF of 20-25% repeat echo with EF 15-20% with polyvalvular disease continue with optimization therapy 3. AECOPD per PCP 4. CAD: mild non-obstructive. stable. CP free secondary prevention 5. HTN controlled with meds 6. HLD 9. SAMREEN with CKD monitor Cr with diuresis 10. PAD 50% RSFA via recent duplex stable. No claudication symptoms continue medical management 11. Continued tobaccoism cessation discussed and encouraged. JOAQUÍN RAY APRN Sep 30, 2016 12:52
[2016-09-30 14:45] VITALS: BP 99/67
[2016-09-30 19:23] VITALS: BP 82/58
[2016-09-30] MEDS: TAMSULOSIN 0.4 MG CAP.ER.24H. PO SCH (20:56)
[2016-09-30 23:13] VITALS: BP 115/83
[2016-10-01 03:42] VITALS: BP 110/72
[2016-10-01 05:19] LABS: CREATININE 1.5 mg/dL (0.7-1.3); GFR 47.4; POTASSIUM 3.6 mmol/L (3.5-5.1)
[2016-10-01] MEDS: HYDROCODONE/APAP 5/325MG TABLET. PO PRN ×3 (05:54→18:52)
[2016-10-01 07:00] VITALS: BP 117/84
--- NOTE | 2016-10-01 08:01 | PDOC ---
PROGRESS NOTES Subjective Subjective Patient reports legs are less swollen and uncomfortable than at admission. Still having some stiffness and pain in neck. Objective Objective Vital Signs Date Time Temp Pulse Resp B/P Pulse Ox O2 Delivery O2 Flow Rate FiO2 10/01/16 07:18 Room Air 10/01/16 03:42 97.3 100 20 110/72 98 2.0 97.3 Intake and Output 10/01/16 07:00 Intake Total 1680 ml Output Total 6325 ml Balance -4645 ml Intake Oral 1680 ml Output Urine Total 6325 ml Physical Exam Abdomen: Normal bowel sounds, Soft, No tenderness Heart: Regular rate Extremities: Other (2+ edema bilateral LE's, SANCHEZ hose on) General: Alert, Oriented X3, No acute distress Lungs: Other (BS decreased throughout but CTA) MUSCULOSKELETAL: Abnormal passive ROM of Assessment Assessment Problems Medical Problems: (1) Acute exacerbation of CHF (congestive heart failure) Status: Acute (2) CHF exacerbation Status: Acute (3) Troponin level elevated Status: Acute Plan Plan of Care 1. AE CHF with severe cardiomyopathy and chronic venous insufficiency - much better output yesterday and exam improved. Patient reminded of importance of SANCHEZ hose daily. Continue present Lasix as long as renal function remains basically stable. 2. CKD III - stable on lab, continue to follow daily. 3. HTN - well controlled, BP a little low yesterday so Metoprolol was held. 4. DM2 - well controlled with Metformin. 5. chronic back pain - stable, continue po pain meds, muscle relaxers and heat. 6. COPD - stable, continue nebs. Comment Review of Relevant I have reviewed the following items jung (where applicable) has been applied. Labs Laboratory Tests Test 09/29/16 09:05 09/29/16 12:04 09/29/16 21:36 09/30/16 03:35 Magnesium Level 2.2mg/dL (1.8-2.4) 2.4mg/dL (1.8-2.4) Troponin I Quantitative 0.036ng/mL (0.000-0.055) Thyroid Stimulating Hormone (TSH) 1.851uIU/mL (0.358-3.74) Glucose (Fingerstick) 135mg/dL (70-99) 114mg/dL (70-99) Sodium Level 142mmol/L (136-145) Potassium Level 4.6mmol/L (3.5-5.1) Chloride Level 105mmol/L (98-107) Carbon Dioxide Level 28mmol/L (21-32) Anion Gap 9 (6-14) Blood Urea Nitrogen 32mg/dL (8-26) Creatinine 1.5mg/dL (0.7-1.3) Estimated GFR (Cockcroft-Gault) 47.4 Glucose Level 115mg/dL (70-99) Calcium Level 9.1mg/dL (8.5-10.1) Test 09/30/16 10:43 09/30/16 16:37 09/30/16 21:01 10/01/16 03:39 Glucose (Fingerstick) 143mg/dL (70-99) 128mg/dL (70-99) 106mg/dL (70-99) Sodium Level 140mmol/L (136-145) Potassium Level 3.6mmol/L (3.5-5.1) Chloride Level 100mmol/L (98-107) Carbon Dioxide Level 31mmol/L (21-32) Anion Gap 9 (6-14) Blood Urea Nitrogen 38mg/dL (8-26) Creatinine 1.5mg/dL (0.7-1.3) Estimated GFR (Cockcroft-Gault) 47.4 Glucose Level 118mg/dL (70-99) Calcium Level 9.0mg/dL (8.5-10.1) Laboratory Tests Test 09/30/16 10:43 09/30/16 16:37 09/30/16 21:01 10/01/16 03:39 Glucose (Fingerstick) 143mg/dL (70-99) 128mg/dL (70-99) 106mg/dL (70-99) Sodium Level 140mmol/L (136-145) Potassium Level 3.6mmol/L (3.5-5.1) Chloride Level 100mmol/L (98-107) Carbon Dioxide Level 31mmol/L (21-32) Anion Gap 9 (6-14) Blood Urea Nitrogen 38mg/dL (8-26) Creatinine 1.5mg/dL (0.7-1.3) Estimated GFR (Cockcroft-Gault) 47.4 Glucose Level 118mg/dL (70-99) Calcium Level 9.0mg/dL (8.5-10.1) Microbiology 09/28/16 Urine Culture - Final, Complete 09/28/16 Urine Culture Result 1 (CRISTINA) - Final, Complete Medications Current Medications Albuterol Sulfate (Ventolin Neb Soln) 2.5 mg 1X ONCE NEB Last administered on 09/28/16 20:51; Start 09/28/16 at 20:30; Stop 09/28/16 at 20:32; Status DC Furosemide (Lasix) 40 mg 1X ONCE IVP Last administered on 09/28/16 21:26; Start 09/28/16 at 21:15; Stop 09/28/16 at 21:16; Status DC Ondansetron HCl (Zofran) 4 mg PRN Q8HRS PRN IV NAUSEA/VOMITING; Start 09/28/16 at 21:30; Stop 09/29/16 at 21:29; Status DC Morphine Sulfate 2 mg PRN Q2HR PRN IV SEVERE PAIN; Start 09/28/16 at 21:30; Stop 09/29/16 at 21:29; Status DC Albuterol/ Ipratropium (Duoneb) 3 ml RTQID NEB ; Start 09/29/16 at 08:00; Stop 09/30/16 at 07:59; Status DC Aspirin (Children'S Aspirin) 324 mg 1X ONCE PO Last administered on 09/28/16 22:18; Start 09/28/16 at 22:00; Stop 09/28/16 at 22:01; Status DC Aspirin (Ecotrin) 81 mg DAILY PO Last administered on 09/30/16 08:29; Start at 09:00 Atorvastatin Calcium (Lipitor) 10 mg DAILY PO Last administered on 09/30/16 08 :29; Start 09/29/16 at 09:00 Citalopram Hydrobromide (Celexa) 20 mg DAILY PO Last administered on 09/29/16 10:38; Start 09/29/16 at 09:00 Acetaminophen/ Hydrocodone Bitart (Lortab 5/325) 1 tab PRN Q6HRS PRN PO PAIN Last administered on 10/01/16 05:54; Start 09/29/16 at 07:45 Metformin HCl (Glucophage) 500 mg BIDWMEALS PO Last administered on 09/30/16 17:00; Start 09/29/16 at 08:00 Metolazone (Zaroxolyn) 2.5 mg DAILY PO Last administered on 09/30/16 08:31; Start 09/29/16 at 09:00 Metoprolol Tartrate (Lopressor) 25 mg BID PO Last administered on 09/30/16 08: 31; Start 09/29/16 at 09:00 Tamsulosin HCl (Flomax) 0.4 mg HS PO Last administered on 09/30/16 20:56; Start 09/29/16 at 21:00 Non-Formulary Medication 2 puff BID IH ; Start 09/29/16 at 09:00; Status UNV Potassium Chloride (Klor-Con) 10 meq DAILYWBKFT PO Last administered on 08:30; Start 09/29/16 at 08:00 Furosemide (Lasix) 80 mg BID92 IVP Last administered on 09/30/16 14:01; Start 09/29/16 at 09:00 Budesonide (Pulmicort) 0.5 mg RTBID NEB ; Start 09/29/16 at 08:00; Stop at 08:13; Status DC Methocarbamol (Robaxin) 1,500 mg TID PRN PRN PO MUSCLE SPASMS Last administered on 09/30/16 10:36; Start 09/30/16 at 09:15 Active Scripts Active Lasix (Furosemide) 40 Mg Tablet 80 Mg PO DAILY 30 Days Atorvastatin Calcium 10 Mg Tablet 1 Tab PO DAILY Flomax (Tamsulosin Hcl) 0.4 Mg Cap.er.24h 1 Cap PO HS Metolazone 2.5 Mg Tablet 2.5 Mg PO DAILY Potassium Chloride 20 Meq Tablet.er 10 Meq PO DAILY Reported Hydrocodone-Apap 5-325 (Hydrocodone Bit/Acetaminophen) 1 Each Tablet 1 Tab PO PRN Q6HRS PRN Metoprolol Tartrate 25 Mg Tablet 1 Tab PO BID Proair Hfa Inhaler (Albuterol Sulfate) 8.5 Gm Hfa.aer.ad 2 Puff IH PRN Q2HR PRN Albuterol Sulfate Neb Soln (Albuterol Sulfate) 2.5 Mg/3 Ml Vial.neb 1 Vial NEB PRN Q4HRS Symbicort 160-4.5 Mcg Inhaler (Budesonide/Formoterol Fumarate) 10.2 Gm Hfa.aer.ad 2 Puff IH BID Metformin Hcl 500 Mg Tablet 500 Mg PO BIDWMEALS Spiriva (Tiotropium [place]) 18 Mcg Cap.w.dev 2 Inh IH DAILY05 Aspirin Ec (Aspirin) 81 Mg Tablet.dr 81 Mg PO DAILY Celexa (Citalopram Hydrobromide) 20 Mg Tablet Unknown Dose PO DAILY Vitals/I & O Vital Sign - Last 24 Hours 09/30/16 09/30/16 09/30/16 09/30/16 08:00 08:31 10:49 14:45 Temp 97.6 98.1 97.6 98.1 Pulse 105 101 100 Resp 22 20 B/P 104/78 106/82 99/67 Pulse Ox 96 98 O2 Delivery Room Air Room Air Room Air 09/30/16 09/30/16 09/30/16 09/30/16 19:23 19:51 20:56 23:13 Temp 97.5 97.9 97.5 97.9 Pulse 103 103 102 Resp 20 18 B/P 82/58 82/58 115/83 Pulse Ox 100 96 O2 Delivery Nasal Cannula Room Air Room Air O2 Flow Rate 2.0 2.0 10/01/16 10/01/16 03:42 07:18 Temp 97.3 97.3 Pulse 100 Resp 20 B/P 110/72 Pulse Ox 98 O2 Delivery Nasal Cannula Room Air O2 Flow Rate 2.0 Intake and Output 09/30/16 09/30/16 10/01/16 15:00 23:00 07:00 Intake Total 360 ml 1200 ml 120 ml Output Total 2500 ml 3200 ml 625 ml Balance -2140 ml -2000 ml -505 ml MOOKIE SAGE MD Oct 01, 2016 08:00
[2016-10-01] MEDS: FUROSEMIDE 100 MG/10 ML VIAL. IVP SCH ×2 (08:10→16:43)
[2016-10-01] MEDS: METOPROLOL TART IMMED RELEASE 25 MG TABLET. PO SCH ×2 (08:11→20:58)
[2016-10-01] MEDS: ASPIRIN ENTERIC COATED 81 MG TABLET.DR. PO SCH (08:11)
[2016-10-01] MEDS: METHOCARBAMOL 750 MG TABLET PO PRN ×2 (08:11→16:44)
[2016-10-01] MEDS: ATORVASTATIN CALCIUM 10 MG TABLET. PO SCH (08:12)
[2016-10-01] MEDS: METFORMIN 500 MG TABLET. PO SCH ×2 (08:12→16:44)
[2016-10-01] MEDS: METOLAZONE 2.5 MG TABLET PO SCH (08:12)
[2016-10-01] MEDS: CITALOPRAM 20 MG TABLET. PO SCH (08:12)
[2016-10-01] MEDS: POTASSIUM CHLORIDE 10 MEQ TABLET.ER. PO SCH ×2 (09:00→16:44)
[2016-10-01 10:51] VITALS: BP 115/81
--- NOTE | 2016-10-01 11:05 | PDOC ---
CARDIO Progress Notes Date and Time Date of Service 10/01/16 Time of Evaluation 1015 Subjective Subjective: No Chest Pain, No shortness of breath, Other (less edema, increased urination) Vitals Vitals Vital Signs Date Time Temp Pulse Resp B/P Pulse Ox O2 Delivery O2 Flow Rate FiO2 10/01/16 10:51 98.1 101 20 115/81 97 Room Air 98.1 10/01/16 03:42 2.0 Weight Weight [ ] Input and Output Intake and Output Intake and Output 10/01/16 07:00 Intake Total 1680 ml Output Total 6325 ml Balance -4645 ml Intake Oral 1680 ml Output Urine Total 6325 ml Laboratory Labs Laboratory Tests Test 09/30/16 16:37 09/30/16 21:01 10/01/16 03:39 10/01/16 07:52 Glucose (Fingerstick) 128mg/dL (70-99) 106mg/dL (70-99) 114mg/dL (70-99) Sodium Level 140mmol/L (136-145) Potassium Level 3.6mmol/L (3.5-5.1) Chloride Level 100mmol/L (98-107) Carbon Dioxide Level 31mmol/L (21-32) Anion Gap 9 (6-14) Blood Urea Nitrogen 38mg/dL (8-26) Creatinine 1.5mg/dL (0.7-1.3) Estimated GFR (Cockcroft-Gault) 47.4 Glucose Level 118mg/dL (70-99) Calcium Level 9.0mg/dL (8.5-10.1) Microbiology Micro Microbiology 09/28/16 Urine Culture - Final, Complete 09/28/16 Urine Culture Result 1 (CRISTINA) - Final, Complete Physical Exam HEENT: Neck Supple W Full Motion Chest: Symmetric LUNGS: Clear to Auscultation, Other (diminished bases ) Heart: S1S2, RRR, murmurs (3/6 systolic murmur ) Abdomen: Soft N/T Extremities: Other (1+ bilateral LE pitting edema ) Neurology: alert, oriented, follow commands Assessment Assessment 1. Acute on chronic systolic CHF suppressed LVEF improved; continues to have significant UOP with Lasix discussed 2000cc FR and 2Gm Na diet Cr. stable. Will convert Lasix to oral in am 2. NICM s/o AICD; interrogation with normal function. No AFIB/VT/VF. 2D echo 03/28 with an EF of 20-25% repeat echo with EF 15-20% with polyvalvular disease episode of 15-beat NSVT overnight. Will check Mg and replace as warranted. continue with optimization therapy 3. AECOPD per PCP 4. CAD: mild non-obstructive. stable. CP free secondary prevention 5. HTN controlled with meds 6. HLD 9. SAMREEN with CKD monitor Cr with diuresis 10. PAD 50% RSFA via recent duplex stable. No claudication symptoms continue medical management 11. Continued tobaccoism cessation discussed and encouraged. JOAQUÍN RAY APRN Oct 01, 2016 11:05
[2016-10-01] MEDS ORDERED: POTASSIUM CHLORIDE 20 MEQ TABLET.ER. PO ONE (11:30)
[2016-10-01 14:36] VITALS: BP 112/77
[2016-10-01] MEDS ORDERED: SODIUM CHLORIDE 0.65% NASAL SPRAY 45ML BOTTLE. NS PRN (18:00)
[2016-10-01 19:29] VITALS: BP 113/78
[2016-10-01] MEDS: TAMSULOSIN 0.4 MG CAP.ER.24H. PO SCH (20:58)
[2016-10-01 23:10] VITALS: BP 100/71
[2016-10-02] MEDS: METHOCARBAMOL 750 MG TABLET PO PRN ×2 (01:58→09:44)
[2016-10-02] MEDS: HYDROCODONE/APAP 5/325MG TABLET. PO PRN ×2 (01:58→09:46)
[2016-10-02 03:50] VITALS: BP 92/70
[2016-10-02 05:26] LABS: CALCIUM 9.4 mg/dL (8.5-10.1); CREATININE 1.4 mg/dL (0.7-1.3); GFR 51.4; POTASSIUM 3.8 mmol/L (3.5-5.1)
[2016-10-02 07:00] VITALS: BP 110/80
[2016-10-02] MEDS ORDERED: FUROSEMIDE 40 MG TABLET. PO SCH (09:00)
[2016-10-02] MEDS: CITALOPRAM 20 MG TABLET. PO SCH ×2 (09:00→09:03)
[2016-10-02] MEDS: METFORMIN 500 MG TABLET. PO SCH (09:02)
[2016-10-02] MEDS: POTASSIUM CHLORIDE 10 MEQ TABLET.ER. PO SCH (09:03)
[2016-10-02] MEDS: METOLAZONE 2.5 MG TABLET PO SCH (09:03)
[2016-10-02] MEDS: ATORVASTATIN CALCIUM 10 MG TABLET. PO SCH (09:03)
[2016-10-02] MEDS: ASPIRIN ENTERIC COATED 81 MG TABLET.DR. PO SCH (09:03)
[2016-10-02] MEDS: METOPROLOL TART IMMED RELEASE 25 MG TABLET. PO SCH (09:04)
[2016-10-02] MEDS ORDERED: FUROSEMIDE 40 MG TABLET. PO ONE (10:30)
--- NOTE | 2016-10-02 10:31 | PDOC ---
PROGRESS NOTES Subjective Subjective Patient without complaint, feels ready to go home today. Objective Objective Vital Signs Date Time Temp Pulse Resp B/P Pulse Ox O2 Delivery O2 Flow Rate FiO2 10/02/16 09:46 96 Room Air 10/02/16 09:04 100 110/80 10/02/16 07:00 97.4 21 97.4 10/01/16 03:42 2.0 Intake and Output 10/02/16 07:00 Intake Total 860 ml Output Total 4700 ml Balance -3840 ml Intake Oral 860 ml Output Urine Total 4700 ml Physical Exam Abdomen: Normal bowel sounds, Soft, No tenderness Heart: Regular rate Extremities: Other (1+ edema bilateral LE's, SANCHEZ hose on) General: Alert, Oriented X3, No acute distress Lungs: Other (BS mildly decreased throughout but CTA) Assessment Assessment Problems Medical Problems: (1) Acute exacerbation of CHF (congestive heart failure) Status: Acute (2) CHF exacerbation Status: Acute (3) Troponin level elevated Status: Acute Plan Plan of Care 1. Acute exacerbation of CHF with severe cardiomyopathy and chronic venous insufficiency - much improved, good diuresis for the last 2 days. Home on his usual 80mg Lasix daily. Importance of SANCHEZ hose again discussed. 2. CKD III - stable, tolerating Lasix. Continue to follow as outpatient. 3. HTN - well controlled with low dose Metoprolol. 4. DM2 - well controlled with Metformin. 5. COPD - stable, not hypoxic, continue nebs at home. 6. chronic back pain - stable, continue his usual meds. Refills through our office. Comment Review of Relevant I have reviewed the following items jung (where applicable) has been applied. Labs Laboratory Tests Test 09/30/16 10:43 09/30/16 16:37 09/30/16 21:01 10/01/16 03:39 Glucose (Fingerstick) 143mg/dL (70-99) 128mg/dL (70-99) 106mg/dL (70-99) Sodium Level 140mmol/L (136-145) Potassium Level 3.6mmol/L (3.5-5.1) Chloride Level 100mmol/L (98-107) Carbon Dioxide Level 31mmol/L (21-32) Anion Gap 9 (6-14) Blood Urea Nitrogen 38mg/dL (8-26) Creatinine 1.5mg/dL (0.7-1.3) Estimated GFR (Cockcroft-Gault) 47.4 Glucose Level 118mg/dL (70-99) Calcium Level 9.0mg/dL (8.5-10.1) Magnesium Level 2.2mg/dL (1.8-2.4) Test 10/01/16 07:52 10/01/16 11:06 10/01/16 16:27 10/01/16 20:57 Glucose (Fingerstick) 114mg/dL (70-99) 117mg/dL (70-99) 148mg/dL (70-99) 116mg/dL (70-99) Test 10/02/16 03:35 10/02/16 07:49 Sodium Level 140mmol/L (136-145) Potassium Level 3.8mmol/L (3.5-5.1) Chloride Level 98mmol/L (98-107) Carbon Dioxide Level 34mmol/L (21-32) Anion Gap 8 (6-14) Blood Urea Nitrogen 38mg/dL (8-26) Creatinine 1.4mg/dL (0.7-1.3) Estimated GFR (Cockcroft-Gault) 51.4 Glucose Level 95mg/dL (70-99) Calcium Level 9.4mg/dL (8.5-10.1) Glucose (Fingerstick) 129mg/dL (70-99) Laboratory Tests Test 10/01/16 11:06 10/01/16 16:27 10/01/16 20:57 10/02/16 03:35 Glucose (Fingerstick) 117mg/dL (70-99) 148mg/dL (70-99) 116mg/dL (70-99) Sodium Level 140mmol/L (136-145) Potassium Level 3.8mmol/L (3.5-5.1) Chloride Level 98mmol/L (98-107) Carbon Dioxide Level 34mmol/L (21-32) Anion Gap 8 (6-14) Blood Urea Nitrogen 38mg/dL (8-26) Creatinine 1.4mg/dL (0.7-1.3) Estimated GFR (Cockcroft-Gault) 51.4 Glucose Level 95mg/dL (70-99) Calcium Level 9.4mg/dL (8.5-10.1) Test 10/02/16 07:49 Glucose (Fingerstick) 129mg/dL (70-99) Microbiology 09/28/16 Urine Culture - Final, Complete 09/28/16 Urine Culture Result 1 (CRISTINA) - Final, Complete Medications Current Medications Albuterol Sulfate (Ventolin Neb Soln) 2.5 mg 1X ONCE NEB Last administered on 09/28/16 20:51; Start 09/28/16 at 20:30; Stop 09/28/16 at 20:32; Status DC Furosemide (Lasix) 40 mg 1X ONCE IVP Last administered on 09/28/16 21:26; Start 09/28/16 at 21:15; Stop 09/28/16 at 21:16; Status DC Ondansetron HCl (Zofran) 4 mg PRN Q8HRS PRN IV NAUSEA/VOMITING; Start 09/28/16 at 21:30; Stop 09/29/16 at 21:29; Status DC Morphine Sulfate 2 mg PRN Q2HR PRN IV SEVERE PAIN; Start 09/28/16 at 21:30; Stop 09/29/16 at 21:29; Status DC Albuterol/ Ipratropium (Duoneb) 3 ml RTQID NEB ; Start 09/29/16 at 08:00; Stop 09/30/16 at 07:59; Status DC Aspirin (Children'S Aspirin) 324 mg 1X ONCE PO Last administered on 09/28/16 22:18; Start 09/28/16 at 22:00; Stop 09/28/16 at 22:01; Status DC Aspirin (Ecotrin) 81 mg DAILY PO Last administered on 10/02/16 09:03; Start at 09:00 Atorvastatin Calcium (Lipitor) 10 mg DAILY PO Last administered on 10/02/16 09 :03; Start 09/29/16 at 09:00 Citalopram Hydrobromide (Celexa) 20 mg DAILY PO Last administered on 10/02/16 09:03; Start 09/29/16 at 09:00 Acetaminophen/ Hydrocodone Bitart (Lortab 5/325) 1 tab PRN Q6HRS PRN PO PAIN Last administered on 10/01/16 05:54; Start 09/29/16 at 07:45 Metformin HCl (Glucophage) 500 mg BIDWMEALS PO Last administered on 10/02/16 09:02; Start 09/29/16 at 08:00 Metolazone (Zaroxolyn) 2.5 mg DAILY PO Last administered on 10/02/16 09:03; Start 09/29/16 at 09:00 Metoprolol Tartrate (Lopressor) 25 mg BID PO Last administered on 10/02/16 09: 04; Start 09/29/16 at 09:00 Tamsulosin HCl (Flomax) 0.4 mg HS PO Last administered on 10/01/16 20:58; Start 09/29/16 at 21:00 Non-Formulary Medication 2 puff BID IH ; Start 09/29/16 at 09:00; Status UNV Potassium Chloride (Klor-Con) 10 meq DAILYWBKFT PO Last administered on 08:30; Start 09/29/16 at 08:00; Stop 10/01/16 at 08:02; Status DC Furosemide (Lasix) 80 mg BID92 IVP Last administered on 10/01/16 16:43; Start 09/29/16 at 09:00; Stop 10/01/16 at 21:00; Status DC Budesonide (Pulmicort) 0.5 mg RTBID NEB ; Start 09/29/16 at 08:00; Stop at 08:13; Status DC Methocarbamol (Robaxin) 1,500 mg TID PRN PRN PO MUSCLE SPASMS Last administered on 10/02/16 09:44; Start 09/30/16 at 09:15 Acetaminophen/ Hydrocodone Bitart (Lortab 5/325) 2 tab PRN Q6HRS PRN PO PAIN Last administered on 10/02/16 09:46; Start 10/01/16 at 08:00 Potassium Chloride (Klor-Con) 10 meq BIDWMEALS PO Last administered on 09:03; Start 10/01/16 at 09:00 Furosemide (Lasix) 40 mg BID92 PO Last administered on 10/02/16 09:03; Start 10/02/16 at 09:00 Potassium Chloride (Klor-Con) 40 meq 1X ONCE PO Last administered on t 12:10; Start 10/01/16 at 11:30; Stop 10/01/16 at 11:31; Status DC Sodium Chloride (Saline Mist Nasal) 1 kalyn PRN Q1HR PRN NS NASAL CONGESTION; Start 10/01/16 at 18:00 Active Scripts Active Lasix (Furosemide) 40 Mg Tablet 80 Mg PO DAILY 30 Days Atorvastatin Calcium 10 Mg Tablet 1 Tab PO DAILY Flomax (Tamsulosin Hcl) 0.4 Mg Cap.er.24h 1 Cap PO HS Metolazone 2.5 Mg Tablet 2.5 Mg PO DAILY Potassium Chloride 20 Meq Tablet.er 10 Meq PO DAILY Reported Hydrocodone-Apap 5-325 (Hydrocodone Bit/Acetaminophen) 1 Each Tablet 1 Tab PO PRN Q6HRS PRN Metoprolol Tartrate 25 Mg Tablet 1 Tab PO BID Proair Hfa Inhaler (Albuterol Sulfate) 8.5 Gm Hfa.aer.ad 2 Puff IH PRN Q2HR PRN Albuterol Sulfate Neb Soln (Albuterol Sulfate) 2.5 Mg/3 Ml Vial.neb 1 Vial NEB PRN Q4HRS Symbicort 160-4.5 Mcg Inhaler (Budesonide/Formoterol Fumarate) 10.2 Gm Hfa.aer.ad 2 Puff IH BID Metformin Hcl 500 Mg Tablet 500 Mg PO BIDWMEALS Spiriva (Tiotropium [place]) 18 Mcg Cap.w.dev 2 Inh IH DAILY05 Aspirin Ec (Aspirin) 81 Mg Tablet. 81 Mg PO DAILY Celexa (Citalopram Hydrobromide) 20 Mg Tablet Unknown Dose PO DAILY Vitals/I & O Vital Sign - Last 24 Hours 10/01/16 10/01/16 10/01/16 10/01/16 10:51 12:10 14:36 16:27 Temp 98.1 97.9 98.1 97.9 Pulse 101 103 Resp 20 22 B/P 115/81 112/77 Pulse Ox 97 98 O2 Delivery Room Air Room Air Room Air Room Air 10/01/16 10/01/16 10/01/16 10/01/16 18:52 19:29 20:00 20:58 Temp 97.5 97.5 Pulse 103 106 Resp 21 B/P 113/78 119/86 Pulse Ox 96 O2 Delivery Room Air Room Air Room Air 10/01/16 10/02/16 10/02/16 10/02/16 23:10 01:58 02:58 03:50 Temp 97.3 97.4 97.3 97.4 Pulse 91 97 Resp B/P 100/71 92/70 Pulse Ox 97 96 O2 Delivery Room Air Room Air 10/02/16 10/02/16 10/02/16 10/02/16 07:00 08:00 09:04 09:46 Temp 97.4 97.4 Pulse 100 100 Resp 21 B/P 110/80 110/80 Pulse Ox 95 96 O2 Delivery Room Air Room Air Room Air Intake and Output 10/01/16 10/01/16 10/02/16 15:00 23:00 07:00 Intake Total 240 ml 620 ml Output Total 1800 ml 900 ml 2000 ml Balance -1560 ml -900 ml -1380 ml MOOKIE SAGE MD Oct 02, 2016 10:31
[2016-10-02 11:00] VITALS: BP 106/66
--- NOTE | 2016-10-02 11:06 | PDOC ---
CARDIO Progress Notes Date and Time Date of Service 10/02/2016 Time of Evaluation 0940 Subjective Subjective: No Chest Pain, No shortness of breath, No Palpitations, Other ( more urination overnight; better tolerance with ambulation) Vitals Vitals Vital Signs Date Time Temp Pulse Resp B/P Pulse Ox O2 Delivery O2 Flow Rate FiO2 10/02/16 09:46 96 Room Air 10/02/16 09:04 100 110/80 10/02/16 07:00 97.4 21 97.4 Weight Weight [ ] Input and Output Intake and Output Intake and Output 10/02/16 06:59 Intake Total 860 ml Output Total 4700 ml Balance -3840 ml Intake Oral 860 ml Output Urine Total 4700 ml Laboratory Labs Laboratory Tests Test 10/01/16 11:06 10/01/16 16:27 10/01/16 20:57 10/02/16 03:35 Glucose (Fingerstick) 117mg/dL (70-99) 148mg/dL (70-99) 116mg/dL (70-99) Sodium Level 140mmol/L (136-145) Potassium Level 3.8mmol/L (3.5-5.1) Chloride Level 98mmol/L (98-107) Carbon Dioxide Level 34mmol/L (21-32) Anion Gap 8 (6-14) Blood Urea Nitrogen 38mg/dL (8-26) Creatinine 1.4mg/dL (0.7-1.3) Estimated GFR (Cockcroft-Gault) 51.4 Glucose Level 95mg/dL (70-99) Calcium Level 9.4mg/dL (8.5-10.1) Test 10/02/16 07:49 Glucose (Fingerstick) 129mg/dL (70-99) Microbiology Micro Microbiology 09/28/16 Urine Culture - Final, Complete 09/28/16 Urine Culture Result 1 (CRISTINA) - Final, Complete Physical Exam HEENT: Neck Supple W Full Motion Chest: Symmetric LUNGS: Clear to Auscultation, Other (diminished bases with faint crackles) Heart: S1S2, RRR (SR ), murmurs (3/6 systolic murmur ) Abdomen: Soft N/T Extremities: Other (2+ bilateral LE pitting edema ) Neurology: alert, oriented, follow commands Assessment Assessment 1. Acute on chronic systolic CHF EF 15-20% Compensated, better diurese Continue with diuretic therapy switched to PO with metolazone Continue with LE mechanical compression and elevation Follow up in office in 2-3 weeks. 2. NICM with polyvalvular insufficiencies few episodes of very brief NSVT overnight, expected AICD normal functioning. Check Mg level and replace as warranted. Continue with BB. Unable to uptitrate with SBP at times in the low 90s Remains with HR 90-110, would consider low dose Digoxin. 3. AECOPD Compensated. per PCP 4. CAD: mild non-obstructive. stable. CP free secondary prevention 5. HTN controlled with meds 6. HLD 9. SAMREEN with CKD Improved. Cr 1.4. 10. PAD 50% RSFA via recent duplex stable. No claudication symptoms continue medical management 11. Continued tobaccoism cessation discussed and encouraged. JOSE HWANG PHONE SPECIALIST Oct 02, 2016 11:06
--- NOTE | 2016-10-02 11:36 | DS ---
DATE OF DISCHARGE: 10/02/2016 DATE OF DISCHARGE: 10/02/2016. CHIEF COMPLAINT: Lower extremity edema. HISTORY OF PRESENT ILLNESS: The patient is a 61-year-old male with a history of systolic and diastolic congestive heart failure with severe cardiomyopathy who presented to the Emergency Room with the above complaint. He reported the onset of increased swelling in his legs for at least the week prior to admission. He had been taking his usual Lasix 80 mg daily and wearing his compression hose some of the time, but the swelling seemed to be getting worse, so that it was difficult for him to walk due to the heaviness in his legs. He presented to the Emergency Room where he received one dose of IV Lasix and was admitted for further treatment. HOSPITAL COURSE: The patient was admitted and placed on telemetry where he remained in sinus rhythm. He was seen in consultation by Cardiology. Chest x-ray at admission did not show increased vascular congestion. His Lasix dose was increased to 80 mg b.i.d. He did not have much improvement in his lower extremity edema initially; however, once thigh high SANCHEZ hose were placed, he had a very good diuresis with much improvement in his edema. The importance of wearing compression hose every day was discussed with him. He has chronic venous insufficiency and will always have some amount of swelling due to this. He does admit that the SANCHEZ hose helps a lot and he feels that his edema is much improved. The patient had an echocardiogram, which unfortunately showed a mild worsening in his severe cardiomyopathy. His ejection fraction is now 15-20%. Cardiology recommends continuing medical management of this. The patient has COPD which was stable. His blood pressure is well controlled with his usual low dose of metoprolol. He has diabetes. This is well controlled with metformin. The patient has chronic kidney disease stage 3. His renal function was followed closely during his hospital stay and remained relatively stable even on the increased dose of Lasix. His atorvastatin was recently decreased to 10 mg daily as previous lab had showed his lipids were too tightly controlled with 20 mg. The patient has chronic back pain, which has been stable with oral medication. FINAL DIAGNOSES: 1. Acute exacerbation of systolic congestive heart failure with severe cardiomyopathy. 2. Chronic venous insufficiency. 3. Chronic kidney disease stage 3. 4. Hypertension. 5. Diabetes mellitus type 2. 6. Chronic obstructive pulmonary disease. 7. Chronic back pain. DISCHARGE MEDICATIONS: Albuterol nebulized treatments as needed, aspirin 81 mg daily, atorvastatin 10 mg daily, Symbicort 160/4.5 two puffs b.i.d., citalopram 20 mg daily, furosemide 80 mg daily, hydrocodone 5/325 p.r.n., metformin 500 mg b.i.d., metolazone 2.5 mg daily, metoprolol tartrate 25 mg b.i.d., potassium 20 mEq one half tablet daily, Flomax 0.4 mg daily, Spiriva 1 puff daily. FOLLOWUP: With Dr. Palacios within 2 weeks. Follow up with Cardiology as advised. MOOKIE PALACIOS MD DR: SHIELA/elder JOB#: [id number] / [id number] JEFFERY
[2016-10-02] MEDS ORDERED: DIGOXIN 125 MCG TABLET. PO SCH (12:30)
== END 2016-10-02 12:00 | disposition home or self-care (01) | DRG 291 ==
LOC: ER 18:58 → 2 NORTH 22:36
PROVIDERS: ADMIT Family Medicine; ATTEND Family Medicine
DX: I13.0 Hypertensive heart and chronic kidney disease with heart failure and stage 1 through stage 4 chronic kidney disease, or unspecified chronic kidney disease (principal); I50.43 Acute on chronic combined systolic (congestive) and diastolic (congestive) heart failure; N17.9 Acute kidney failure, unspecified; J44.1 Chronic obstructive pulmonary disease with (acute) exacerbation; I47.2 Ventricular tachycardia; I42.9 Cardiomyopathy, unspecified; E11.22 Type 2 diabetes mellitus with diabetic chronic kidney disease; E78.5 Hyperlipidemia, unspecified; G47.33 Obstructive sleep apnea (adult) (pediatric); F31.9 Bipolar disorder, unspecified; G89.29 Other chronic pain; I25.10 Atherosclerotic heart disease of native coronary artery without angina pectoris; F17.210 Nicotine dependence, cigarettes, uncomplicated; N18.3 Chronic kidney disease, stage 3 (moderate); N40.0 Benign prostatic hyperplasia without lower urinary tract symptoms; I87.2 Venous insufficiency (chronic) (peripheral); K42.9 Umbilical hernia without obstruction or gangrene; M19.90 Unspecified osteoarthritis, unspecified site; M54.2 Cervicalgia; M54.9 Dorsalgia, unspecified; Z85.820 Personal history of malignant melanoma of skin; Z95.810 Presence of automatic (implantable) cardiac defibrillator; Z99.81 Dependence on supplemental oxygen; Z79.899 Other long term (current) drug therapy; Z79.1 Long term (current) use of non-steroidal anti-inflammatories (NSAID)
CPT/HCPCS: 36415; 71010; 80048; 80076; 81001; 82947; 83605; 83690; 83735; 83880; 84443; 84484; 85027; 87086; 93005; 93306; 94640; 96374; J1940; 99285-25

== ENCOUNTER 2017-02-06 01:34 | Emergency (ER) | payer OTHER ==
[~2017-02-06] VITALS: Ht 170.2 cm; Wt 85.3 kg
[~2017-02-06 01:34] MED LIST changes: +ASPI-612 PO; -ASPI81TA9 PO; +HYDR-2758 PO; -MELO-150 PO; +MELO15TA23 PO
[2017-02-06 01:40] VITALS: BP 135/71
--- NOTE | 2017-02-06 02:10 | PHYS DOC ---
Past Medical History Past Medical History: Bipolar, CHF, COPD, Diabetes-Type II, Hypertension Additional Past Medical Histor: emphysema Past Surgical History: Other Additional Past Surgical Histo: umbilical hernia, sinus surgery, hemorrhoid surgery, pacemaker/defib Alcohol Use: Heavy Additional Information: "5 MIXED DRINKS PER NIGHT." Drug Use: None Adult General Chief Complaint Chief Complaint: Congestion HPI HPI Patient is a 61 year old male who presents with complaint of cough and congestion. Patient states that he has had symptoms for the past 2 days. Patient states that his symptoms had seemed to improve earlier today, however they worsen at nighttime when he was trying to sleep. Patient is coughing up yellow sputum. Patient has history of COPD and emphysema. Patient follows a Dr. Faulkner of pulmonology. The patient denies any nausea or vomiting and has had no fevers associated with his symptoms. Patient states that he has mild chest wall pain from his cough. Patient took nebulized treatments at home with his last treatment at 11:30 last night with no improvement in symptoms. Review of Systems Review of Systems Constitutional: Denies fever or chills [] Eyes: Denies change in visual acuity, redness, or eye pain [] HENT: Denies nasal congestion or sore throat [] Respiratory: Cough, shortness of breath [] Cardiovascular: Denies substernal chest pain [] GI: Denies abdominal pain, nausea, vomiting, bloody stools or diarrhea [] : Denies dysuria or hematuria [] Musculoskeletal: Chest wall pain with cough [] Integument: Denies rash or skin lesions [] Neurologic: Denies headache, focal weakness or sensory changes [] Current Medications Current Medications Current Medications Medications (Trade) Dose Ordered Sig/Syeda Start Time Stop Time Status Last Admin Dose Admin Albuterol/ Ipratropium (Duoneb) 6 ml 1X ONCE 02/06/17 02:15 02/06/17 02:16 DC 02/06/17 02:22 6 ML Prednisone (Prednisone) 50 mg 1X ONCE 02/06/17 02:15 02/06/17 02:16 DC 02/06/17 03:10 50 MG Allergies Allergies Allergies Coded Allergies Type Severity Reaction Last Updated Verified No Known Drug Allergies 08/03/16 No Physical Exam Physical Exam Constitutional: Alert, afebrile, appears in mild respiratory distress. [] HENT: Normocephalic, atraumatic, bilateral external ears normal, oropharynx moist, no oral exudates, nose normal. [] Eyes: PERRLA, EOMI, conjunctiva normal, no discharge. [] Neck: Normal range of motion, no tenderness, supple, no stridor. [] Cardiovascular:Heart rate regular rhythm, no murmur [] Lungs & Thorax: Mild to moderate restriction of air movement bilaterally, mild extra wheezes bilaterally, no rales [] Abdomen: Bowel sounds normal, soft, no tenderness, no masses, no pulsatile masses. [] Skin: Warm, dry, no erythema, no rash. [] Back: No tenderness, no CVA tenderness. [] Extremities: No tenderness, no cyanosis, no clubbing, ROM intact, no edema. [] Neurologic: Alert and oriented X 3, normal motor function, normal sensory function, no focal deficits noted. [] Current Patient Data Vital Signs Vital Signs Date Time Temp Pulse Resp B/P (MAP) Pulse Ox O2 Delivery O2 Flow Rate FiO2 02/06/17 02:27 98 Room Air 02/06/17 01:40 97.5 110 22 97.5 EKG EKG Interpreted by me: Heart rate 106, sinus tachycardia, normal intervals, normal axis, no acute ST/T-wave abnormalities present [] Radiology/Procedures Radiology/Procedures Two-view chest x-ray interpreted by me: No pulmonary rates or effusions, normal cardiac silhouette [] Course & Med Decision Making Course & Med Decision Making Pertinent Labs and Imaging studies reviewed. (See chart for details) The patient was given oral prednisone, Levaquin, and DuoNeb nebulized treatment in the emergency department. On reevaluation, patient states his symptoms have improved at this time. Patient will be discharged with prednisone, Levaquin, and recommended follow-up in 2-3 days a primary doctor for reevaluation. Advised return emergency department for any worsening symptoms. Patient voiced understanding and in agreement with treatment plan. Dragon Disclaimer Dragon Disclaimer This electronic medical record was generated, in whole or in part, using a voice recognition dictation system. Departure Departure Impression: Primary Impression: COPD with acute exacerbation Disposition: HOME, SELF-CARE Condition: IMPROVED Referrals: MOOKIE SAGE MD (PCP) Patient Instructions: Chronic Obstructive Pulmonary Disease Exacerbation Additional Instructions: Follow-up with your primary doctor in 2-3 days for reevaluation. Return to emergency department for any worsening symptoms. Scripts Prednisone (PREDNISONE) 50 Mg Tablet 1 TAB PO DAILY, #5 TAB Prov: JACOB MILAN MD 02/06/17 Levofloxacin (LEVAQUIN) 750 Mg Tablet 1 TAB PO DAILY, #5 TAB Prov: JACOB MILAN MD 02/06/17 JACOB MILAN MD Feb 06, 2017 02:10
[2017-02-06] MEDS ORDERED: predniSONE 10 MG TABLET PO ONE (02:15)
[2017-02-06] MEDS ORDERED: IPRATRPIUM/ALBUTEROL 0.5/2.5MG 3 ML NEBU. NEB ONE (02:15)
[2017-02-06] MEDS ORDERED: PRED50TA PO (03:23)
[2017-02-06] MEDS ORDERED: LEVO750T31 PO (03:23)
--- NOTE | 2017-02-06 09:41 | RAD ---
Chest radiograph 2 views 02/06/2017 Clinical indication: Cough. Comparison: Chest radiograph 09/29/[address] chest 10/01/2014. Findings: Dual lead left chest wall cardiac connection device in similar position. Stable moderate enlargement of the cardiac silhouette without pulmonary venous hypertension. There is enlargement of the central pulmonary arteries. No pleural effusion, pneumothorax or focal consolidation. Impression: Stable cardiomegaly and pulmonary arterial enlargement, which can be seen with pulmonary artery hypertension. Clinical correlation is recommended.
--- NOTE | 2017-02-06 12:13 | EKG ---
[facility] [address] [place] [address] Test Date: 2017-02-06 Test Time: 02:26:46 Pat Name: SARAH HERNÁNDEZ Department: Room: Gender: M Documentation Nurse: : 1955 Requested By: JACOB MILAN Order Number: [id number] Reading MD: Stanley Hsieh Measurements Intervals [place] Rate: 108 P: 1 NE: 142 QRS: -12 QRSD: 98 T: 82 QT: 370 QTc: 500 Interpretive Statements SINUS TACHYCARDIA POSSIBLE SEPTAL INFARCT - OLD Electronically Signed On 02-07-2017 12:02:09 CDT by Stanley Hsieh
== END 2017-02-06 03:35 | disposition home or self-care (01) ==
LOC: ER 01:34
DX: J44.1 Chronic obstructive pulmonary disease with (acute) exacerbation (principal); F31.9 Bipolar disorder, unspecified; I11.0 Hypertensive heart disease with heart failure; I50.9 Heart failure, unspecified; E11.9 Type 2 diabetes mellitus without complications
CPT/HCPCS: 71020; 93005; 94250; 94640; 99284; J7512; J7620

== ENCOUNTER 2017-03-16 05:59 | Emergency (ER) | payer OTHER ==
[~2017-03-16] VITALS: Ht 172.7 cm; Wt 78.5 kg
[~2017-03-16 05:59] MED LIST changes: +LEVO750T31 PO; +PRED50TA PO
[2017-03-16] MEDS: IPRATRPIUM/ALBUTEROL 0.5/2.5MG 3 ML NEBU. NEB ONE (06:30)
--- NOTE | 2017-03-16 06:39 | PHYS DOC ---
Past Medical History Past Medical History: Bipolar, CHF, COPD, Diabetes-Type II, Hypertension Additional Past Medical Histor: emphysema Past Surgical History: Pacemaker, Other Additional Past Surgical Histo: umbilical hernia, sinus surgery, hemorrhoid surgery, pacemaker/defib Alcohol Use: Heavy Drug Use: None Adult General Chief Complaint Chief Complaint: RIB PAIN HPI HPI Patient is a 61 year old male who presents with complaint of left-sided chest wall pain. Patient states that he started having pain shortly after coughing early this morning. Patient states that his pain is sharp and worsens with cough and deep breathing. Patient's pain is located along the lateral aspect of the left chest wall and radiates towards his back. Patient rates his pain as 9 out of 10. Patient has history of COPD and CHF. Patient denies any recent fevers. The patient's cough has been productive of whitish sputum which patient states has been chronic. Patient denies recent worsening orthopnea or lower extremity edema. Review of Systems Review of Systems Constitutional: Denies fever or chills [] Eyes: Denies change in visual acuity, redness, or eye pain [] HENT: Denies nasal congestion or sore throat [] Respiratory: Shortness of breath, cough [] Cardiovascular: Denies substernal chest pain or edema [] GI: Denies abdominal pain, nausea, vomiting, bloody stools or diarrhea [] : Denies dysuria or hematuria [] Musculoskeletal: left sided rib pain [] Integument: Denies rash or skin lesions [] Neurologic: Denies headache, focal weakness or sensory changes [] Current Medications Current Medications Current Medications Medications (Trade) Dose Ordered Sig/[facility] Start Time Stop Time Status Last Admin Dose Admin Albuterol/ Ipratropium (Duoneb) 6 ml 1X ONCE 03/16/17 07:00 03/16/17 07:01 DC 03/16/17 06:30 6 ML Dexamethasone Sodium Phosphate (Decadron) 12 mg 1X ONCE 03/16/17 07:15 03/16/17 07:16 DC 03/16/17 07:15 12 MG Morphine Sulfate 4 mg PRN Q15MIN PRN 03/16/17 06:30 03/17/17 06:29 03/16/17 06:42 4 MG Ondansetron HCl (Zofran) 4 mg 1X ONCE 03/16/17 07:00 03/16/17 07:01 DC 03/16/17 06:42 4 MG Allergies Allergies Allergies Coded Allergies Type Severity Reaction Last Updated Verified No Known Drug Allergies 08/03/16 No Physical Exam Physical Exam Constitutional: Alert, afebrile, appears in moderate discomfort. [] HENT: Normocephalic, atraumatic, bilateral external ears normal, oropharynx moist, no oral exudates, nose normal. [] Eyes: PERRLA, EOMI, conjunctiva normal, no discharge. [] Neck: Normal range of motion, no tenderness, supple, no stridor. [] Cardiovascular:Heart rate regular rhythm, no murmur [] Lungs & Thorax: Moderately restricted air movement bilaterally, no wheezes, no rales, left lateral and posterior chest wall tenderness to palpation[] Abdomen: Bowel sounds normal, soft, no tenderness, no masses, no pulsatile masses. [] Skin: Warm, dry, no erythema, no rash. [] Back: No tenderness, no CVA tenderness. [] Extremities: No tenderness, no cyanosis, no clubbing, ROM intact, no edema. [] Neurologic: Alert and oriented X 3, normal motor function, normal sensory function, no focal deficits noted. [] Current Patient Data Vital Signs Vital Signs Date Time Temp Pulse Resp B/P (MAP) Pulse Ox O2 Delivery O2 Flow Rate FiO2 03/16/17 07:25 96 20 119/75 (90) 94 03/16/17 06:42 Room Air 03/16/17 06:10 97.8 97.8 Lab Values Laboratory Tests Test 03/16/17 06:29 White Blood Count 8.2 x10^3/uL (4.0-11.0) Red Blood Count 5.59 x10^6/uL (4.30-5.70) Hemoglobin 17.5 g/dL (13.0-17.5) Hematocrit 53.9 % (39.0-53.0) H Mean Corpuscular Volume 97 fL (79-100) Mean Corpuscular Hemoglobin 31 pg (25-35) Mean Corpuscular Hemoglobin Concent 33 g/dL (31-37) Red Cell Distribution Width 16.4 % (11.5-14.5) H Platelet Count 205 x10^3/uL (140-400) Neutrophils (%) (Auto) 73 % (31-73) Lymphocytes (%) (Auto) 16 % (24-48) L Monocytes (%) (Auto) 10 % (0-9) H Eosinophils (%) (Auto) 1 % (0-3) Basophils (%) (Auto) 1 % (0-3) Neutrophils # (Auto) 6.0 x10^3uL (1.8-7.7) Lymphocytes # (Auto) 1.3 x10^3/uL (1.0-4.8) Monocytes # (Auto) 0.8 x10^3/uL (0.0-1.1) Eosinophils # (Auto) 0.1 x10^3/uL (0.0-0.7) Basophils # (Auto) 0.0 x10^3/uL (0.0-0.2) Sodium Level 139 mmol/L (136-145) Potassium Level 3.9 mmol/L (3.5-5.1) Chloride Level 101 mmol/L (98-107) Carbon Dioxide Level 30 mmol/L (21-32) Anion Gap 8 (6-14) Blood Urea Nitrogen 26 mg/dL (8-26) Creatinine 1.3 mg/dL (0.7-1.3) Estimated GFR (Cockcroft-Gault) 55.9 BUN/Creatinine Ratio 20 (6-20) Glucose Level 144 mg/dL (70-99) H Calcium Level 10.1 mg/dL (8.5-10.1) Total Bilirubin 0.8 mg/dL (0.2-1.0) Aspartate Amino Transferase (AST) 24 U/L (15-37) Alanine Aminotransferase (ALT) 24 U/L (16-63) Alkaline Phosphatase 94 U/L (46-116) Creatine Kinase 146 U/L (39-308) Creatine Kinase MB (Mass) 7.1 ng/mL (0.0-3.6) H Creatine Kinase MB Relative Index 4.9 % (0-4) H Troponin I Quantitative 0.037 ng/mL (0.000-0.055) MG-Idz-N-Type Natriuretic Peptide 3858 pg/mL (0-124) H Total Protein 7.7 g/dL (6.4-8.2) Albumin 3.6 g/dL (3.4-5.0) Albumin/Globulin Ratio 0.9 (1.0-1.7) L Laboratory Tests 03/16/17 06:29 Laboratory Tests 03/16/17 06:29 EKG EKG Interpreted by me: Heart rate 98, sinus rhythm, leftward axis, prolonged QT interval, no acute ST/T-wave abnormalities present[] Radiology/Procedures Radiology/Procedures [facility] [address] [place] [address] IMAGING REPORT Signed PATIENT: SARAH HERNÁNDEZ ACCOUNT: [id number] : 1955 LOCATION: ER AGE: 61 SEX: M EXAM STATUS: REG ER ORD. PHYSICIAN: JACOB MILAN MD REASON: left sided chest wall pain PROCEDURE: CHEST PA & LATERAL Chest x-ray Indication: Left-sided chest wall pain. Technique: AP and lateral views of the chest Comparison: Previous study from 02/06/2017 Findings: Stable position of left chest wall cardiac device with its leads projecting over the heart. Heart is moderately enlarged in size with prominent pulmonary vasculature. Stable diffuse bilateral interstitial markings. No focal consolidation. No pneumothorax or pleural effusion. Mild multilevel degenerative disc disease in the visualized spine. Impression: Stable cardiomegaly with prominent pulmonary vasculature. Correlate with pulmonary vascular congestion. Findings are stable compared to prior study from 02/06/2017. DICTATED and SIGNED BY: UGO COLLINS DO DATE: 03/16/17 0714 CC: JACOB MILAN MD; MOOKIE PALACIOS MD ~ [] Course & Med Decision Making Course & Med Decision Making Pertinent Labs and Imaging studies reviewed. (See chart for details) Patient was given IV morphine and Decadron in the emergency department. Patient' s lab work appears stable with exception of mildly elevated BNP levels. The patient is continuing his diuretic regimen at home and at this time is maxed out. The patient's oxygen levels are normal and patient is not complaining of severe shortness of breath at this time. Patient's pain has improved with administration of morphine and Decadron in the emergency department. Patient will continue on [place], Flexeril, and prednisone for outpatient treatment of what appears to be a left-sided intercostal muscle strain. Advised follow-up with patient's primary doctor in 2-3 days for reevaluation and return to emergency department for any worsening symptoms. Patient voiced understanding and in agreement with treatment plan. Dragon Disclaimer Dragon Disclaimer This electronic medical record was generated, in whole or in part, using a voice recognition dictation system. Departure Departure Impression: Primary Impression: Intercostal muscle strain Additional Impressions: COPD (chronic obstructive pulmonary disease) CHF (congestive heart failure) Disposition: 01 HOME, SELF-CARE Condition: IMPROVED Referrals: MOOKIE PALACIOS MD (PCP) Patient Instructions: Chest Wall Pain, Muscle Strain Additional Instructions: Follow-up with Dr. Palacios in 2-3 days for reevaluation. Return to emergency department for any worsening symptoms. Scripts Prednisone (PREDNISONE) 20 Mg Tablet 1 TAB PO BID, #10 TAB Prov: JACOB MILAN MD 03/16/17 Cyclobenzaprine Hcl (CYCLOBENZAPRINE HCL) 10 Mg Tablet 1 TAB PO QHS Y for MUSCLE SPASMS, #15 TAB Prov: JACOB MILAN MD 03/16/17 Hydrocodone/Apap 5-325 (NORCO 5-325 TABLET) 1 Each Tablet 1-2 TAB PO Q4-6HRS Y for PAIN, #20 TAB Prov: JACOB MILAN MD 03/16/17 Problem Qualifiers Primary Impression: Intercostal muscle strain Encounter type: initial encounter Qualified Codes: S29.011A - Strain of muscle and tendon of front wall of thorax, initial encounter Additional Impressions: COPD (chronic obstructive pulmonary disease) COPD type: unspecified COPD Qualified Codes: J44.9 - Chronic obstructive pulmonary disease, unspecified CHF (congestive heart failure) Congestive heart failure type: unspecified congestive heart failure type Congestive heart failure chronicity: chronic Qualified Codes: I50.9 - Heart failure, unspecified JACOB MILAN MD Mar 16, 2017 06:39
--- NOTE | 2017-03-16 06:41 | EKG ---
[facility] [address] [place] [address] Test Date: 2017-03-16 Test Time: 06:24:06 Pat Name: SARAH HERNÁNDEZ Department: Room: Gender: M Ob Gyn Physician Assistant: : 1955 Requested By: JACOB MILAN Order Number: [id number] Reading MD: Measurements Intervals [place] Rate: 98 P: -5 ID: [id number] QRS: -19 QRSD: 108 T: 73 QT: 386 QTc: 495 Interpretive Statements SINUS RHYTHM LEFT ATRIAL ABNORMALITY LEFTWARD AXIS PROLONGED QT RI6.01 Unconfirmed report No previous ECG available for comparison
[2017-03-16] MEDS: ONDANSETRON PF 4 MG/2 ML VIAL. IV ONE (06:42)
[2017-03-16] MEDS: MORPHINE SULFATE 4 MG/ML DISP.SYRIN. IV/SQ PRN (06:42)
[2017-03-16 06:54] LABS: BASO % 1 % (0-3); EOS % 1 % (0-3); HEMATOCRIT 53.9 % (39.0-53.0); HEMOGLOBIN 17.5 g/dL (13.0-17.5); LYMPH # 1.3 x10^3/uL (1.0-4.8); LYMPH % 16 % (24-48); MEAN CORPUSCULAR HEMOGLOBIN 31 pg (25-35); MEAN CORPUSCULAR HGB CONC 33 g/dL (31-37); MEAN CORPUSCULAR VOLUME 97 fL (79-100); MONO % 10 % (0-9); NEUT % 73 % (31-73); PLATELET COUNT 205 x10^3/uL (140-400); RED BLOOD COUNT 5.59 x10^6/uL (4.30-5.70); RED CELL DISTRIBUTION WIDTH 16.4 % (11.5-14.5); WHITE BLOOD COUNT 8.2 x10^3/uL (4.0-11.0)
[2017-03-16 06:55] LABS: CALCIUM 10.1 mg/dL (8.5-10.1); CREATININE 1.3 mg/dL (0.7-1.3); GFR 55.9; POTASSIUM 3.9 mmol/L (3.5-5.1)
[2017-03-16 07:00] LABS: ALBUMIN 3.6 g/dL (3.4-5.0); ALBUMIN/GLOBULIN RATIO 0.9 (1.0-1.7); TOTAL BILIRUBIN 0.8 mg/dL (0.2-1.0); TOTAL PROTEIN 7.7 g/dL (6.4-8.2)
[2017-03-16] MEDS: DEXAMETHASONE SOD PHOS 20 MG/5 ML VIAL. IV ONE (07:15)
[2017-03-16 07:18] LABS: CKMB MASS 7.1 ng/mL (0.0-3.6)
--- NOTE | 2017-03-16 07:20 | RAD ---
Chest x-ray Indication: Left-sided chest wall pain. Technique: AP and lateral views of the chest Comparison: Previous study from 02/06/2017 Findings: Stable position of left chest wall cardiac device with its leads projecting over the heart. Heart is moderately enlarged in size with prominent pulmonary vasculature. Stable diffuse bilateral interstitial markings. No focal consolidation. No pneumothorax or pleural effusion. Mild multilevel degenerative disc disease in the visualized spine. Impression: Stable cardiomegaly with prominent pulmonary vasculature. Correlate with pulmonary vascular congestion. Findings are stable compared to prior study from 02/06/2017.
[2017-03-16 07:25] VITALS: BP 119/75
[2017-03-16] MEDS ORDERED: PRED20TA PO (07:42)
[2017-03-16] MEDS ORDERED: CYCL10TA2 PO (07:42)
[2017-03-16] MEDS ORDERED: HYDR-971 PO (07:42)
== END 2017-03-16 07:48 | disposition home or self-care (01) ==
LOC: ER 05:59
DX: S29.011A Strain of muscle and tendon of front wall of thorax, initial encounter (principal); J44.9 Chronic obstructive pulmonary disease, unspecified; I11.0 Hypertensive heart disease with heart failure; I50.9 Heart failure, unspecified; F31.9 Bipolar disorder, unspecified; Z95.0 Presence of cardiac pacemaker; F10.10 Alcohol abuse, uncomplicated; X58.XXXA Exposure to other specified factors, initial encounter; Y93.9 Activity, unspecified; Y99.8 Other external cause status; Y92.89 Other specified places as the place of occurrence of the external cause
CPT/HCPCS: 36415; 71020; 80053; 82553; 83880; 84484; 85025; 93005; 94250; 94640; 96374; 96375; 99285; J1100; J2270; J2405; J7620

== ENCOUNTER → 2018-02-14 | Outpatient (CLI) | payer OTHER ==
[~2018-02-14] MED LIST changes: +CYCL10TA2 PO; +HYDR-971 PO; -METF-620 PO; +METF10007 PO; +METF500T16 PO; -METF500T4 PO; +PRED20TA PO; +TRAZ-85 PO; -TRAZ50TA15 PO
--- NOTE | 2018-02-14 17:01 | RAD ---
CHEST PA LATERAL Clinical indications: PT STATES HE HAS BEEN COUGHING UP FLUID, HAS HX OF CHF,COPD, SMOKER COMPARISON: March 16, 2017. Findings: There is an increase in interstitium bilaterally which could represent acute bronchitis. No consolidative pneumonia is evident. No pleural effusion or pneumothorax is seen. The heart size is enlarged but stable. Bipolar atrioventricular pacemaker is again evident. The pulmonary vasculature, mediastinum and both alvina are stable. The osseous structures appear intact. Impression: Acute bronchitis. No consolidative pneumonia. Stable cardiomegaly. Electronically signed by: Magdaleno Ogden MD (02/14/2018 4:58 PM) [place] [id number]
== END | disposition home or self-care (01) ==
LOC: RAD 15:32
PROVIDERS: ATTEND Internal Medicine Cardiovascular Disease
DX: J20.9 Acute bronchitis, unspecified (principal); I13.0 Hypertensive heart and chronic kidney disease with heart failure and stage 1 through stage 4 chronic kidney disease, or unspecified chronic kidney disease; E11.22 Type 2 diabetes mellitus with diabetic chronic kidney disease; I50.9 Heart failure, unspecified; N18.3 Chronic kidney disease, stage 3 (moderate); I25.10 Atherosclerotic heart disease of native coronary artery without angina pectoris; Z85.820 Personal history of malignant melanoma of skin; Z95.810 Presence of automatic (implantable) cardiac defibrillator; Z82.49 Family history of ischemic heart disease and other diseases of the circulatory system; Z83.3 Family history of diabetes mellitus; Z80.1 Family history of malignant neoplasm of trachea, bronchus and lung
CPT/HCPCS: 71046

== ENCOUNTER → 2018-08-15 | Outpatient (CLI) | payer MEDICAID, OTHER ==
[~2018-08-15] MED LIST changes: +ALBU2.5V8 IH; -HYDR-2758 PO; +HYDR-2761 PO; +HYDR-3164 PO; -HYDR-971 PO; -PROAIR HFA8.5 GM IH; +TRAZ-118 PO; -TRAZ-85 PO
--- NOTE | 2018-08-15 15:37 | CARD ---
MR#: [id number] Date of Study: 08/15/2018 Ordering Physician: KEIKO MENDOZA, Referring Physician: KEIKO MENDOZA, Tech: Omaira Ledesma RDCS APPROVED REPORT EXAM: Two-dimensional and M-mode echocardiogram with Doppler and color Doppler. Other Information Quality : Good INDICATION Non-Ischemic Cardiomyopathy Surgery/Intervention ICD/Pacemaker: Date: 2010 RISK FACTORS Smoking 2D DIMENSIONS RVDd4.1 (2.9-3.5cm)Left Atrium(2D)5.3 (1.6-4.0cm) IVSd1.3 (0.7-1.1cm)Aortic Root(2D)2.9 (2.0-3.7cm) LVDd7.5 (3.9-5.9cm)LVOT Diameter2.4 (1.8-2.4cm) PWd1.2 (0.7-1.1cm)LVDs7.0 (2.5-4.0cm) FS (%) 6.8 %SV43.5 ml LVEF(%)14.6 (>50%) Aortic Valve AoV Peak Ab.92.1cm/sAoV VTI12.7cm AO Peak GR.3.4mmHgLVOT Peak Ab.72.7cm/s LVOT VTI 10.71cmAO Mean GR.2mmHg EZEQUIEL (VMAX)3.18mx2ZIF (VTI)3.87cm2 AI P 1/2 Kjnw599si Mitral Valve MV E Rdxhruzh69.9cm/sMV DECEL PDPO132kz MV A Uadjkvtd53.8cm/sMV EFY00qs E/A Ratio2.4MVA (PHT)6.30cm2 TDI E/Lateral E'13.9E/Medial E'10.3 Tricuspid Valve TR P. Dlktriun189ku/sRAP DUZFBRHM8tiFe TR Peak Gr.17dgFsAYJO99ahKc Pulmonary Vein S1 Gyshmdkj48.0cm/sD2 Fdrnwvyx27.8cm/s LEFT VENTRICLE The Left Ventricle is severely dilated. There is mild concentric left ventricular hypertrophy. Left v entricle systolic function is severely impaired. The Ejection Fraction is 30%. There is severe global hypokinesis of the left ventricle. Transmitral Doppler flow pattern is Grade II-pseudonormal filling dynamics. RIGHT VENTRICLE The right ventricle is severely dilated. RV Systolic function is mildly reduced. There is a pacemaker lead in the right ventricle. ATRIA The left atrium is moderately dilated. The right atrium is moderately dilated. A pacemaker is seen in the right atrium consistent with history. The interatrial septum is intact with no evidence for an a trial septal defect or patent foramen ovale as noted on 2-D or Doppler imaging. AORTIC VALVE The aortic valve is calcified but opens well. Doppler and Color Flow revealed mild aortic regurgitati on. There is no significant aortic valvular stenosis. MITRAL VALVE The mitral valve is calcified but opens well. There is no evidence of mitral valve prolapse. There is no mitral valve stenosis. Doppler and Color-flow revealed mild mitral regurgitation. TRICUSPID VALVE The tricuspid valve is normal in structure and function. Doppler and Color Flow revealed trace to mil d tricuspid regurgitation. There is moderate pulmonary hypertension. The PA pressure was estimated at 40 mmHg. There is no tricuspid valve stenosis. PULMONIC VALVE The pulmonic valve is not well visualized. Doppler and Color Flow revealed no pulmonic valvular regur gitation. There is no pulmonic valvular stenosis. GREAT VESSELS The aortic root is normal in size. The ascending aorta is normal in size. The IVC is dilated and kel apses >50% with inspiration. PERICARDIAL EFFUSION There is no evidence of significant pericardial effusion. Critical Notification Critical Value: No <Conclusion> Left ventricle systolic function is severely impaired. The Ejection Fraction is 30%. The Left Ventricle is severely dilated. There is severe global hypokinesis of the left ventricle. The right ventricle is severely dilated. There is a pacemaker lead in the right ventricle. Doppler and Color Flow revealed trace to mild tricuspid regurgitation. There is moderate pulmonary hy pertension. The PA pressure was estimated at 40 mmHg. Signed by : Stanley Hsieh, Electronically Approved : 08/15/2018 15:36:13
== END | disposition home or self-care (01) ==
LOC: ECHO 14:19
PROVIDERS: ATTEND Internal Medicine Cardiovascular Disease
DX: I08.0 Rheumatic disorders of both mitral and aortic valves (principal); I27.20 Pulmonary hypertension, unspecified
CPT/HCPCS: 93306

== ENCOUNTER 2019-02-28 11:21 | Emergency (ER) | payer OTHER ==
[~2019-02-28] VITALS: Ht 172.7 cm; Wt 78.5 kg
[2019-02-28 13:15] VITALS: BP 103/69
--- NOTE | 2019-02-28 14:42 | RAD ---
KNEE RIGHT 4V History: Right knee pain. Technique: 4 views right knee. Comparison: None. Findings: Normal alignment. No fracture. No significant knee joint effusion. Vascular calcifications. Suprapatellar enthesopathic changes. Minimal medial and patellofemoral compartment DJD. Impression: 1. No acute osseous abnormality. Electronically signed by: Guido Rod DO (02/28/2019 2:39 PM) [id number]
[2019-02-28] MEDS ORDERED: METH4TAB2 PO (14:59)
--- NOTE | 2019-02-28 15:00 | PHYS DOC ---
Past Medical History Past Medical History: Bipolar, CHF, COPD, Diabetes-Type II, Hypertension Additional Past Medical Histor: emphysema Past Surgical History: Pacemaker, Other Additional Past Surgical Histo: umbilical hernia, sinus surgery, hemorrhoid surgery, pacemaker/defib Alcohol Use: Heavy Drug Use: None Adult General Chief Complaint Chief Complaint: KNEE INJURY HPI HPI Patient is a 63 year old male who presents complaining of moderate throbbing pain to the right knee pain that has been going on for 1-1/2 weeks. Patient denies any known injury. He states he was already seen by the PCP who gave him some pain medications and cream to apply on the knee, he states they are not helping. Patient states the pain is worse when he sitting down denies anything specifically relieving the pain. Review of Systems Review of Systems Constitutional: Denies fever or chills [] Musculoskeletal: Reports right knee pain Integument: Denies rash or skin lesions [] Neurologic: Denies headache, focal weakness or sensory changes [] All other systems were reviewed and found to be within normal limits, except as documented in this note. Allergies Allergies Allergies Coded Allergies Type Severity Reaction Last Updated Verified No Known Drug Allergies 08/03/16 No Physical Exam Physical Exam Constitutional: Well developed, well nourished, no acute distress, non-toxic appearance. [] Skin: Warm, dry, no erythema, no rash. [] Back: No tenderness, no CVA tenderness. [] Extremities: Right knee with no obvious deformity, no edema, no ecchymosis. Tenderness on palpation of the right anterior knee. Full range of motion to the right knee. +2 right pedal pulse. Cap refill less than 2 seconds the right lower extremity Neurologic: Alert and oriented X 3, normal motor function, normal sensory function, no focal deficits noted. [] Psychologic: Affect normal, judgement normal, mood normal. [] Current Patient Data Vital Signs Vital Signs Date Time Temp Pulse Resp B/P (MAP) Pulse Ox O2 Delivery O2 Flow Rate FiO2 02/28/19 13:15 96.6 94 20 103/69 (80) 95 Room Air 96.6 EKG EKG [] Radiology/Procedures Radiology/Procedures []PROCEDURE: KNEE RIGHT 4V KNEE RIGHT 4V History: Right knee pain. Technique: 4 views right knee. Comparison: None. Findings: Normal alignment. No fracture. No significant knee joint effusion. Vascular calcifications. Suprapatellar enthesopathic changes. Minimal medial and patellofemoral compartment DJD. Impression: 1. No acute osseous abnormality. Electronically signed by: Guido Rod DO (02/28/2019 2:39 PM) [id number] DICTATED and SIGNED BY: GUIDO ROD DO DATE: 02/28/19 1432 Course & Med Decision Making Course & Med Decision Making Pertinent Labs and Imaging studies reviewed. (See chart for details) This is a 63-year-old male patient presenting to the ED today with right knee pain, no known injury. Right knee x-rays interpreted by radiologist were noted for DJD otherwise no acute findings. Provided orthopedic doctor for follow-up. Patient is already on gabapentin what sounds like Voltaren cream. I give him Medrol Dosepak. F/u with Ortho Dragon Disclaimer Dragon Disclaimer This electronic medical record was generated, in whole or in part, using a voice recognition dictation system. Departure Departure Impression: Primary Impression: Right knee DJD Additional Impression: Right knee pain Disposition: 01 HOME, SELF-CARE Condition: STABLE Referrals: RUBY SILVA RN, GNP (PCP) SHANONN IGLESIAS MD Follow up in one week Patient Instructions: Arthritis, Degenerative-Brief Additional Instructions: You were evaluated were seen in the Ed today and noted to have arthritis of the right knee. We provided you an orthopedic doctor, consider following up with them as soon as you can. Try to ice and elevate the extremity. You can wrap an Rick bandage over the knee as tolerated Scripts Methylprednisolone (MEDROL) 4 Mg Tab.ds.pk 1 PKG PO UD, #1 PKG Prov: SHAISTA OTERO SHREDDER PICKER 02/28/19 Problem Qualifiers Primary Impression: Right knee DJD Osteoarthritis type: unspecified Qualified Codes: M17.11 - Unilateral primary osteoarthritis, right knee Additional Impression: Right knee pain Chronicity: acute Qualified Codes: M25.561 - Pain in right knee SHAISTA OTERO SHREDDER PICKER Feb 28, 2019 15:00
== END 2019-02-28 15:25 | disposition home or self-care (01) ==
LOC: ER 11:21
DX: M17.11 Unilateral primary osteoarthritis, right knee (principal); F31.9 Bipolar disorder, unspecified; I11.0 Hypertensive heart disease with heart failure; I50.9 Heart failure, unspecified; E11.9 Type 2 diabetes mellitus without complications; J44.9 Chronic obstructive pulmonary disease, unspecified; Z95.0 Presence of cardiac pacemaker
CPT/HCPCS: 73564; 99284

== ENCOUNTER → 2020-04-10 | Outpatient (CLI) | payer OTHER ==
[~2020-04-10] MED LIST changes: -ASPI-612 PO; +ASPI-886 PO; +METH4TAB2 PO; +POTA20TA4 PO; -POTA20TA82 PO
--- NOTE | 2020-04-10 16:20 | CARD ---
MR#: [id number] Date of Study: 04/10/2020 Ordering Physician: KEIKO MENDOZA, Referring Physician: KEIKO MENDOZA, Tech: Renetta Rivera APPROVED REPORT EXAM: Two-dimensional and M-mode echocardiogram with Doppler and color Doppler. Other Information Quality : AverageHR: 106bpm INDICATION COPD Congestive Heart Failure Surgery/Intervention Pacemaker: Date: 2011 RISK FACTORS Hypertension Hyperlipidemia Smoking 2D DIMENSIONS RVDd5.2 (2.9-3.5cm)Left Atrium(2D)4.6 (1.6-4.0cm) IVSd1.3 (0.7-1.1cm)Aortic Root(2D)3.2 (2.0-3.7cm) LVDd7.0 (3.9-5.9cm)LVOT Diameter2.1 (1.8-2.4cm) PWd1.4 (0.7-1.1cm)LVDs5.7 (2.5-4.0cm) FS (%) 18.6 %SV95.4 ml LVEF(%)37.3 (>50%) Aortic Valve AoV Peak Ab.116.3cm/sAoV VTI17.1cm AO Peak GR.5.4mmHgLVOT Peak Ab.81.4cm/s LVOT VTI 12.84cmAO Mean GR.3mmHg EZEQUEIL (VMAX)1.85wg1DCI (VTI)2.65cm2 AI P 1/2 Cqid646na Mitral Valve MV E Peak Gr.73mmHg Pulmonary Valve PV Peak Sgkinfmu62.0cm/sPV Peak Grad.3mmHg Tricuspid Valve TR P. Yefhgaad204cq/sRAP YCZRLJHG2dmTu TR Peak Gr.18lwYmDJMK77xsNd LEFT VENTRICLE The Left Ventricle is severely dilated. There is mild to moderate concentric left ventricular hypertr ophy. The left ventricular systolic function is severely impaired. The Ejection Fraction is 25%. Ther e is severe global hypokinesis of the left ventricle. Transmitral Doppler flow pattern is Grade II-ps eudonormal filling dynamics. RIGHT VENTRICLE The right ventricle is borderline dilated. There is normal right ventricular wall thickness. Systolic function is mildly reduced. There is a pacemaker lead in the right ventricle. ATRIA The left atrium is moderately dilated. The right atrium is mildly dilated. There is a pacemaker lead seen in the right atrium. The interatrial septum is intact with no evidence for an atrial septal defe ct or patent foramen ovale as noted on 2-D or Doppler imaging. AORTIC VALVE The aortic valve is calcified but opens well. Doppler and Color Flow revealed mild aortic regurgitati on. There is no significant aortic valvular stenosis. Calculated aortic valve area is 1.87 cm2 with m aximum pressure gradient of 9 mmHg and mean pressure gradient of 6 mmHg. MITRAL VALVE The mitral valve is normal in structure and function. There is no evidence of mitral valve prolapse. There is no mitral valve stenosis. Doppler and Color-flow revealed mild mitral regurgitation. TRICUSPID VALVE The tricuspid valve is normal in structure and function. Doppler and Color Flow revealed trace to mil d tricuspid regurgitation with an estimated PAP of 43 mmHg. There is no tricuspid valve stenosis. PULMONIC VALVE The pulmonic valve is not well visualized. Doppler and Color Flow revealed no pulmonic valvular regur gitation. GREAT VESSELS The aortic root is normal in size. The ascending aorta is normal in size. The IVC is dilated and kel apses >50% with inspiration. PERICARDIAL EFFUSION There is no evidence of significant pericardial effusion. Critical Notification Critical Value: No <Conclusion> The left ventricular systolic function is severely impaired. The Ejection Fraction is 25%. Transmitral Doppler flow pattern is Grade II-pseudonormal filling dynamics. Pacer lead noted RA/RV. Mild aortic regurgitation. Mild mitral regurgitation. Trace to mild tricuspid regurgitation with an estimated PAP of 43 mmHg. There is no evidence of significant pericardial effusion. Signed by : Roderick Shetty, Electronically Approved : 04/10/2020 16:19:27
== END ==
LOC: ECHO 10:01
PROVIDERS: ATTEND Internal Medicine Cardiovascular Disease
DX: I08.3 Combined rheumatic disorders of mitral, aortic and tricuspid valves (principal); I50.9 Heart failure, unspecified; Z95.0 Presence of cardiac pacemaker
CPT/HCPCS: 93306

== ENCOUNTER → 2020-04-15 | Outpatient (CLI) | payer OTHER ==
--- NOTE | 2020-04-15 12:21 | RAD ---
EXAM: Chest, 2 views. HISTORY: Systolic heart failure. COMPARISON: 02/14/2018 FINDINGS: 2 views of the chest are obtained. There is mild diffuse increased interstitial opacity. There is no consolidation, protrusion or pneumothorax. There is enlargement of the cardiac silhouette. There is a cardiac pacemaker defibrillator in expected position. IMPRESSION: Suspected trace congestion to proposed on atelectasis and chronic interstitial changes. Cardiomegaly. Electronically signed by: Danielle Stone MD (04/15/2020 12:18 PM) [id number]
== END ==
LOC: RAD 11:32
PROVIDERS: ATTEND Internal Medicine Cardiovascular Disease
DX: I50.22 Chronic systolic (congestive) heart failure (principal); I51.7 Cardiomegaly; Z95.0 Presence of cardiac pacemaker
CPT/HCPCS: 71046